=== PATIENT | male | born 1965 | race Caucasian/White ===

== ENCOUNTER 2017-11-17 06:39 | Day surgery (SDC) | payer MEDICARE, SELFPAY ==
--- NOTE | 2017-11-15 08:26 | SUR.PREOP ---
Addendum entered by Nicole Bonner RN 11/16/17 08:32: Spoke with Laura from Dr. Ellis's office, 11-15-17. Elver FELIX reviewed patient's last cardiology note and is in agreement with Dr. Herring telling patient to hold plavix prior to procedure. Once procedure is done, patient is to resume plavix. Original Note: Spoke with Laura in Dr. Ellis's office about obtaining recent office note/cardiac clearance, chart pulled for Elver FELIX. Laura states she will call back. Patient reports Dr. Herring told him to hold his plavix prior to colonoscopy. Spoke with Dr. Herring's office and left message about obtaining a note saying it is ok for him to hold Plavix. Asked for office to fax note to [employer]'s fax machine.
[2017-11-17] VITALS (7 sets, daily range): BP systolic 108–128; BP diastolic 73–87; PULSE 62–78; RESP 18–20; TEMP 36.7–36.8; O2SAT 95–100; BMI 38.0
--- NOTE | 2017-11-17 07:28 | HMH.ANESCL ---
[facility] Anesthesia Checklist - Patient Identification Patient Identification: Arm Band, Verbal (Name & ) - Structural Data Admitted From: Home Planned Operative Procedure/s: colonoscopy Consent for Planned Operative Procedure(s) Verified: Yes Verified Documents: Surgical Consent - NPO Status Verified Time NPO: 00:00 - Chart Verification Results Verified: None - Additional verifications Patient : No Anesthesia Reactions: No Hx Blood Transfusions: No Blood Transfusion Reaction: No Cephalosporin Allergy: No Previous Colonoscopy: No - Cardiovascular Assessment Heart Sounds: S1 & S2 Pulse Strength: Strong Pulse Rhythm: Regular Peripheral Edema: No - Airway Assessment C-Spine Mobility Assessed: Yes TMJ Mobility Assessed: Yes Dentition: Partials - Neurological Assessment Level of Consciousness: Awake, Alert Hx Seizures: No Numbness or tingling in extremities: No - Genitourinary Assessment Urinary Incontinence: None - Anesthesia Plan Anesthesia Risk discussed: Yes Anesthesia Plan: Verified ASA Class: III Anesthesia Type: MAC [facility] Anesthesia HX I have reviewed the patient's past medical history: Yes Medical History: Reports:: Coronary Artery Disease, Diabetes Mellitus Type 2 (on meds), Hyperlipidemia, Hypertension, Myocardial Infarction Denies:: Diabetes Mellitus Type 1, Seizures Other Surgeries: Yes: Angioplasty (5 stents), Colonoscopy. No: Pacemaker Amputation: No Fractures: No *Family Hx:: Unable to obtain
--- NOTE | 2017-11-17 07:41 | HMH.SCOPE ---
- Procedure: Date: 11/17/17 Patient Date of :: 1965 Procedure Performed:: Colonoscopy with cold snare polypectomy Equipment: Olympus 180 variable stiffness pediatric colonoscope Indications:: Mr. Carson is a 52-year-old gentleman who is here for follow-up screening/surveillance colonoscopy. His father had colon cancer in his early 60s. The patient's last colonoscopy 6 years ago at [facility] was normal. He reports no abdominal pain, weight loss, change in his bowel habits or rectal bleeding. Gary Herring M.D. Performing Provider:: Carlos Munoz MD Referring Provider:: Gary Herring MD Sedation:: MAC sedation Procedure:: Prior to the procedure, a history and physical exam was performed, and patient's medications and allergies were reviewed. The risks, benefits and alternatives of the sedation and procedure were discussed with the patient. All questions were answered and informed consent was obtained. The patient was brought to the procedure room. Patient identification and proposed procedure were verified by the physician and the nurse. The patient was placed in a left lateral decubitus position and the scope was passed under direct vision. Throughout the procedure, the patient's blood pressure, pulse, and oxygen saturations were monitored continuously. The colonoscopy was accomplished without difficulty. The patient tolerated the procedure well. Findings:: On digital rectal examination there was normal rectal tone. There were no external hemorrhoids. The colonoscope was introduced through the anal canal to the rectum and advanced to the cecum. Prostate was 2+, mildly firm but symmetric without nodules. The ileocecal valve and appendiceal orifice were identified. The scope was advanced a short distance into the ileum which appeared grossly normal. The scope was then withdrawn into the colon. There were 2 colon polyps identified in the transverse ?1 and sigmoid ?1. These ranged in size from 4-5 mm and were all removed via cold snare polypectomy. There were scattered diverticuli throughout the descending and sigmoid colon (LEFT colon). The rectum itself was normal. Upon retroflexion within the rectum there were grade 1 internal hemorrhoids. Impression: 1. Diminutive colonic polyps ?2 2. Mild left-sided diverticulosis 3. Grade 1 internal hemorrhoids Recommendations:: I will follow up the polyp pathology and recommend repeat colonoscopy again in 5 years based upon the polyp histology and the patient's family history. I would encourage fiber supplementation on a long-term daily maintenance basis. Complications:: None Estimated blood obtained (mL): 0
[2017-11-17 07:42] LABS: POC Glucose,Bedside 128 mg/dL
--- NOTE | 2017-11-17 07:47 | P.PCN_ITS ---
- Procedure: Date: 11/17/17 Patient Date of :: 1965 Procedure Performed:: Colonoscopy with cold snare polypectomy Equipment: Olympus 180 variable stiffness pediatric colonoscope Indications:: Mr. Carson is a 52-year-old gentleman who is here for follow-up screening/ surveillance colonoscopy. His father had colon cancer in his early 60s. The patient's last colonoscopy 6 years ago at [facility] was normal. He reports no abdominal pain, weight loss, change in his bowel habits or rectal bleeding. Gary Herring M.D. Performing Provider:: Carlos Munoz MD Referring Provider:: Gary Herring MD Sedation:: MAC sedation Procedure:: Prior to the procedure, a history and physical exam was performed, and patient' s medications and allergies were reviewed. The risks, benefits and alternatives of the sedation and procedure were discussed with the patient. All questions were answered and informed consent was obtained. The patient was brought to the procedure room. Patient identification and proposed procedure were verified by the physician and the nurse. The patient was placed in a left lateral decubitus position and the scope was passed under direct vision. Throughout the procedure, the patient's blood pressure, pulse, and oxygen saturations were monitored continuously. The colonoscopy was accomplished without difficulty. The patient tolerated the procedure well. Findings:: On digital rectal examination there was normal rectal tone. There were no external hemorrhoids. The colonoscope was introduced through the anal canal to the rectum and advanced to the cecum. Prostate was 2+, mildly firm but symmetric without nodules. The ileocecal valve and appendiceal orifice were identified. The scope was advanced a short distance into the ileum which appeared grossly normal. The scope was then withdrawn into the colon. There were 2 colon polyps identified in the transverse ?1 and sigmoid ?1. These ranged in size from 4-5 mm and were all removed via cold snare polypectomy. There were scattered diverticuli throughout the descending and sigmoid colon ( LEFT colon). The rectum itself was normal. Upon retroflexion within the rectum there were grade 1 internal hemorrhoids. Impression: 1. Diminutive colonic polyps ?2 2. Mild left-sided diverticulosis 3. Grade 1 internal hemorrhoids Recommendations:: I will follow up the polyp pathology and recommend repeat colonoscopy again in 5 years based upon the polyp histology and the patient's family history. I would encourage fiber supplementation on a long-term daily maintenance basis. Complications:: None Estimated blood obtained (mL): 0
== END 2017-11-17 08:50 | disposition home or self-care (01) ==
LOC: OUTP 06:41
PROVIDERS: Family Provider Internal Medicine Adolescent Medicine; PCP Internal Medicine Adolescent Medicine; Visit Provider Internal Medicine Gastroenterology
PROC: 0DJD8ZZ Inspection of Lower Intestinal Tract, Via Natural or Artificial Opening Endoscopic (ICD-10-PCS; CPT 45378; principal; 2017-11-17 07:30)
DX: Z12.11 Encounter for screening for malignant neoplasm of colon (principal); Z80.0 Family history of malignant neoplasm of digestive organs; K57.30 Diverticulosis of large intestine without perforation or abscess without bleeding; D12.3 Benign neoplasm of transverse colon; K63.5 Polyp of colon; Z79.899 Other long term (current) drug therapy
CPT/HCPCS: 45380; 82962; 88305

== ENCOUNTER → 2018-03-06 08:57 | Outpatient (CLI) | payer MEDICARE, SELFPAY ==
[2018-03-06 13:37] LABS: Basophils # 0.1 K/mm3 (0-0.2); Eosinophils # 0.5 K/mm3 (0.0-0.4); Eosinophils % 8.6 % (0.1-12.0); Hemoglobin 12.2 g/dL (14.1-18.0); Lymphocytes # 2.4 K/mm3 (0.7-4.5); Mean Corpuscular Hemoglobin 28.3 pg (27.0-31.2); Mean Corpuscular Volume 85.7 fl (80-94); Mean Platelet Volume 7.4 fl (7.4-10.4); Monocytes # 0.4 K/mm3 (0.1-1.0); Monocytes % 6.6 % (1.7-9.3); Neutrophils # 2.9 K/mm3 (1.8-7.8); Neutrophils % 45.7 % (37.0-80.0); Platelet Count 334 K/mm3 (142-424); Red Blood Count 4.32 M/mm3 (4.60-6.20); Red Cell Distribution Width 12.4 % (11.5-17.5); White Blood Count 6.3 K/mm3 (4.8-10.8)
[2018-03-06 13:55] LABS: Alanine Aminotransferase 34 U/L (12-78); Albumin Level 3.6 gm/dL (3.4-5.0); Alkaline Phosphatase 92 U/L (46-116); Anion Gap 12.4 mEq/L (5-15); Aspartate Amino Transferase 18 U/L (15-37); Bilirubin,Total 0.2 mg/dL (0.2-1.0); Blood Urea Nitrogen 14 mg/dL (7-18); Calcium 9.1 mg/dL (8.5-10.1); Carbon Dioxide 28 mmol/L (21.0-32.0); Chloride 105 mmol/L (98-107); Chol/HDL Ratio 3.7 (1-3.5); Cholesterol 119 mg/dL (140-200); Creatinine,Serum 1.17 mg/dL (0.70-1.30); Estimated Glomerular Filt Rate 65 ml/min (>60); GFR (African American) 79 ML/MIN (>60); Globulin 3.5 gm/dl (1.3-3.2); Glucose 118 mg/dL (74-106); HDL Cholesterol 32 mg/dL (27-67); LDL Cholesterol 57 mg/dL (0-130); Potassium 4.4 mmoL/L (3.5-5.1); Sodium 141 mmol/L (136-145); Total Protein,Serum 7.1 gm/dL (6.4-8.2); Triglycerides 149 mg/dL (30-200); VLDL Cholesterol 30 mg/dL (0-40)
== END ==
PROVIDERS: Visit Provider Internal Medicine Endocrinology, Diabetes & Metabolism
DX: E11.9 Type 2 diabetes mellitus without complications (principal); E78.00 Pure hypercholesterolemia, unspecified; I10 Essential (primary) hypertension
CPT/HCPCS: 36415; 80053; 80061; 85025

== ENCOUNTER → 2019-02-14 08:33 | Outpatient (CLI) | payer MEDICARE, SELFPAY ==
[2019-02-14 13:44] LABS: Basophils # 0.1 K/mm3 (0-0.2); Basophils % 0.8 % (0.1-2.0); Eosinophils # 0.4 K/mm3 (0.0-0.4); Eosinophils % 6.8 % (0.1-12.0); Hematocrit 37.9 % (42.0-52.0); Hemoglobin 12.9 g/dL (14.1-18.0); Lymphocytes % 34.7 % (10-50); Mean Corpuscular HGB Conc 34.1 g/dL (31.8-35.4); Mean Corpuscular Hemoglobin 29.3 pg (27.0-31.2); Mean Corpuscular Volume 85.9 fl (80-94); Mean Platelet Volume 7.4 fl (7.4-10.4); Monocytes # 0.3 K/mm3 (0.1-1.0); Monocytes % 5.6 % (1.7-9.3); Neutrophils % 52.1 % (37.0-80.0); Platelet Count 319 K/mm3 (142-424); Red Blood Count 4.41 M/mm3 (4.60-6.20); White Blood Count 5.8 K/mm3 (4.8-10.8)
[2019-02-14 14:27] LABS: Alanine Aminotransferase 49 U/L (12-78); Albumin Level 3.8 gm/dL (3.4-5.0); Albumin/Globulin Ratio 1.1 (1.1-1.8); Alkaline Phosphatase 89 U/L (46-116); Anion Gap 15.3 mEq/L (5-15); Aspartate Amino Transferase 23 U/L (15-37); Bilirubin,Total 0.5 mg/dL (0.2-1.0); Blood Urea Nitrogen 13 mg/dL (7-18); Calcium 9.3 mg/dL (8.5-10.1); Carbon Dioxide 28 mmol/L (21.0-32.0); Chloride 103 mmol/L (98-107); Chol/HDL Ratio 4.3 (1-3.5); Cholesterol 136 mg/dL (140-200); Creatinine,Serum 1.17 mg/dL (0.70-1.30); Estimated Glomerular Filt Rate 65 ml/min (>60); GFR (African American) 79 ML/MIN (>60); Globulin 3.6 gm/dl (1.3-3.2); Glucose 133 mg/dL (74-106); HDL Cholesterol 32 mg/dL (27-67); LDL Cholesterol 63 mg/dL (0-130); Potassium 4.3 mmoL/L (3.5-5.1); Sodium 142 mmol/L (136-145); Thyroid Stimulating Hormone 0.31 uIU/ml (0.358-3.740); Total Protein,Serum 7.4 gm/dL (6.4-8.2); Triglycerides 203 mg/dL (30-200); VLDL Cholesterol 41 mg/dL (0-40)
[2019-02-15 10:20] LABS: Creatinine, Urine 214.2 mg/dL (Not Estab.)
[2019-02-15 18:32] LABS: Vitamin B12 270 pg/mL (232-1245)
== END ==
PROVIDERS: PCP Internal Medicine Adolescent Medicine; Visit Provider Internal Medicine Endocrinology, Diabetes & Metabolism
DX: E55.9 Vitamin D deficiency, unspecified (principal); E78.00 Pure hypercholesterolemia, unspecified; E11.9 Type 2 diabetes mellitus without complications; I10 Essential (primary) hypertension; E53.8 Deficiency of other specified B group vitamins; Z79.4 Long term (current) use of insulin
CPT/HCPCS: 36415; 80053; 80061; 82043; 82570; 82607; 82652; 84443; 85025

== ENCOUNTER → 2019-08-23 09:34 | Outpatient (CLI) | payer MEDICARE, SELFPAY ==
[2019-08-23 14:39] LABS: Basophils # 0.1 K/mm3 (0-0.2); Basophils % 0.9 % (0.1-2.0); Eosinophils # 0.3 K/mm3 (0.0-0.4); Eosinophils % 5.1 % (0.1-12.0); Hematocrit 41.4 % (42.0-52.0); Hemoglobin 13.2 g/dL (14.1-18.0); Lymphocytes # 2.2 K/mm3 (0.7-4.5); Mean Corpuscular HGB Conc 31.8 g/dL (31.8-35.4); Mean Corpuscular Hemoglobin 28.3 pg (27.0-31.2); Monocytes # 0.4 K/mm3 (0.1-1.0); Monocytes % 6.7 % (1.7-9.3); Neutrophils # 3.3 K/mm3 (1.8-7.8); Neutrophils % 52.3 % (37.0-80.0); Platelet Count 321 K/mm3 (142-424); Red Blood Count 4.66 M/mm3 (4.60-6.20); Red Cell Distribution Width 13.3 % (11.5-17.5); White Blood Count 6.3 K/mm3 (4.8-10.8)
[2019-08-23 15:45] LABS: Alanine Aminotransferase 49 U/L (12-78); Albumin Level 3.7 gm/dL (3.4-5.0); Albumin/Globulin Ratio 1.1 (1.1-1.8); Alkaline Phosphatase 87 U/L (46-116); Anion Gap 13.3 mEq/L (5-15); Aspartate Amino Transferase 22 U/L (15-37); Bilirubin,Total 0.4 mg/dL (0.2-1.0); Blood Urea Nitrogen 16 mg/dL (7-18); Calcium 9.2 mg/dL (8.5-10.1); Carbon Dioxide 30 mmol/L (21.0-32.0); Chloride 101 mmol/L (98-107); Chol/HDL Ratio 3.9 (1-3.5); Cholesterol 135 mg/dL (140-200); Creatinine,Serum 1.21 mg/dL (0.70-1.30); Estimated Glomerular Filt Rate 63 ml/min (>60); Free T4 (Free Thyroxine) 1.03 ng/dl (0.76-1.46); GFR (African American) 76 ML/MIN (>60); Globulin 3.5 gm/dl (1.3-3.2); Glucose 141 mg/dL (74-106); HDL Cholesterol 35 mg/dL (27-67); LDL Cholesterol 60 mg/dL (0-130); Potassium 4.3 mmoL/L (3.5-5.1); Prostate Specific Ag Screen 0.2 ng/mL (0.0-4.0); Sodium 140 mmol/L (136-145); Thyroid Stimulating Hormone 0.15 uIU/ml (0.358-3.740); Total Protein,Serum 7.2 gm/dL (6.4-8.2); Triglycerides 199 mg/dL (30-200); VLDL Cholesterol 40 mg/dL (0-40)
[2019-08-24 20:05] LABS: Vitamin B12 346 pg/mL (232-1245); Vitamin D 25 Hydroxy 33.2 ng/mL (30.0-100.0)
== END ==
PROVIDERS: PCP Internal Medicine Adolescent Medicine; Visit Provider Internal Medicine Endocrinology, Diabetes & Metabolism
DX: E03.8 Other specified hypothyroidism (principal); E78.2 Mixed hyperlipidemia; E53.8 Deficiency of other specified B group vitamins; E55.9 Vitamin D deficiency, unspecified; D64.9 Anemia, unspecified; I10 Essential (primary) hypertension; Z12.5 Encounter for screening for malignant neoplasm of prostate
CPT/HCPCS: 36415; 80053; 80061; 82607; 82652; 84439; 84443; 85025; G0103

== ENCOUNTER → 2020-03-03 08:35 | Outpatient (CLI) | payer MEDICARE, SELFPAY ==
[2020-03-03 14:20] LABS: Alanine Aminotransferase 49 U/L (12-78); Albumin Level 4.2 g/dl (3.5-5.0); Albumin/Globulin Ratio 1.4 (1.1-1.8); Alkaline Phosphatase 96 U/L (38-126); Anion Gap 12.7 mEq/L (5-15); Aspartate Amino Transferase 38 U/L (17-59); Bilirubin,Total 0.3 mg/dl (0.2-1.3); Blood Urea Nitrogen 15 mg/dl (9-20); Calcium 9.9 mg/dl (8.4-10.2); Carbon Dioxide 31 mmol/L (22.0-30.0); Chloride 98 mmol/L (98-107); Cholesterol 123 mg/dl (140-200); Estimated Glomerular Filt Rate 70 ml/min (>60); GFR (African American) 84 ML/MIN (>60); Globulin 2.9 g/dL (1.3-3.2); Glucose 140 mg/dl (74-100); HDL Cholesterol 41 mg/dl (40-60); Potassium 4.7 mmoL/L (3.5-5.1); Sodium 137 mmol/L (136-145); Total Protein,Serum 7.1 g/dl (6.3-8.2); Triglycerides 190 mg/dl (30-150); VLDL Cholesterol 38 mg/dL (0-40)
[2020-03-03 14:31] LABS: Direct LDL Cholesterol 69.47 mg/dL (100-129)
[2020-03-03 14:35] LABS: Free T4 (Free Thyroxine) 1.41 ng/dl (0.78-2.19)
[2020-03-03 14:36] LABS: T4 (Thyroxine) 10.1 ug/dl (5.53-11.0)
[2020-03-03 14:50] LABS: Thyroid Stimulating Hormone 0.04 uIU/mL (0.465-4.68)
[2020-03-04 08:30] LABS: Microalbumin, Urine 6.1 ug/mL (Not Estab.)
[2020-03-06 09:17] LABS: Vitamin B12 436 pg/mL (232-1245)
== END ==
PROVIDERS: Visit Provider Internal Medicine Endocrinology, Diabetes & Metabolism
DX: E03.8 Other specified hypothyroidism (principal); E78.5 Hyperlipidemia, unspecified; I10 Essential (primary) hypertension; E11.8 Type 2 diabetes mellitus with unspecified complications; Z79.84 Long term (current) use of oral hypoglycemic drugs; E53.8 Deficiency of other specified B group vitamins
CPT/HCPCS: 36415; 80053; 80061; 82043; 82570; 82607; 84436; 84439; 84443

== ENCOUNTER → 2021-03-16 10:07 | Outpatient (CLI) | payer MEDICARE, SELFPAY ==
--- NOTE | 2021-03-16 10:08 | CA_ITS ---
APPROVED REPORT EXAM: Comprehensive 2D, Doppler, and color-flow Echocardiogram Instructional Paraprofessional: ANETA Weeks, RVS Ht: 5 ft 8 in Wt: 259lbs BSA: 2.28 HR: 62 bpm BP: 138/82 mmHg Indications: SOB, CAD-hx LA,HTNHLD, DM Echo Enhancing Agent Comments: Poor aouctics throughout exam due to body habitus/chest girth 2D Dimensions LVDs 3.31 cm LA Volume 66.60 mL LVOT 1.77 cm (M/F) 1.5-2.5 LA Volume Index 29.20 mL/m2 (M/F) 16-34 M-Mode Dimensions LA Diam 5.00 cm (1.9-4.0) LVDd 4.88 cm (3.5-5.7) Ao Diam 3.79 cm (2.0-3.7) LVDs 3.20 cm (3.5-5.7) EF (Teich) 63.30% EPSs 0.40 cm FS 34.40% EDV (Teich) 111.70 mL TAPSE 1.93 (<1.7) ESV (Teich) 41.00 mL LV Diastology E Decel Time 170.00 (160-240 msec) E/A Ratio 1.13 MED E' 8.90 (< 7 cm/sec) MED A' 10.70 cm/s E'/MED E' Ratio 11.25 (>14) LAT E' 8.90 (<10 cm/sec) LAT A' 11.50 cm/s E/LAT E' Ratio 11.25 (>14) Aortic Valve LVOT Max 134.00 (70-110 cm/s) LVOT VTI 28.29 cm AoV Peak Javier. 150.00 (50-130 cm/s) AO Peak GR. 9.00 mmHg AO Mean GR. 4.20 (<5 mmHg) AO VTI 30.36 (18-25 cm) ANNABEL (VTI) 2.29 (2.5-4.5 cm2) Mitral Valve MV E Max Javier. 100.00 (40-130 cm/s) MV A Velocity 89.00 (40-130 cm/s) E/A Ratio 1.13 MV Decel. Time 170.00 (160-240 ms) MV PHT 50.00 ms Pulmonary Valve PV Peak Velocity 89.00 (50-150 cm/s) Tricuspid Valve TR P. Velocity 221.00 cm/s RAP Estimate 10.00 mmHg RVSP 29.50 mmHg Left Ventricle Left atrium is mildly enlarged, left ventricle is normal size, mild concentric left ventricular hypertrophy, visually estimated ejection fraction 55% with no regional wall motion abnormality, grade 1 diastolic dysfunction seen without tissue Doppler evidence of raise left atrial pressure. Right Ventricle Right atrium and right ventricle are normal size and contractility. Aortic Valve Aortic valve is minimally thickened and fibrosed, there is no aortic stenosis or aortic insufficiency. Mitral Valve Mitral valve grossly normal, there is mild mitral regurgitation. Tricuspid Valve Tricuspid grossly normal, there is mild tricuspid regurgitation, tricuspid regurgitation jet velocity is inadequate for calculation of the right ventricular systolic pressure. Pulmonic Valve Pulmonic valve is poorly visualized. Great Vessels Aortic root is normal size. Pericardium No significant pericardial effusion noted. Conclusion 1. Mildly enlarged left atrium, normal left ventricular size, mild concentric left ventricular hypertrophy, visually estimated ejection fraction 55% with no regional wall motion abnormality, grade 1 diastolic dysfunction seen without tissue Doppler evidence of raise left atrial pressure. 2. Mild mitral and tricuspid regurgitation. 3. No significant pericardial effusion noted. Electronically signed by : Hemal Walters, 03/16/2021 21:08:08
== END ==
PROVIDERS: PCP Internal Medicine Adolescent Medicine; Visit Provider Nurse Practitioner Family
DX: E11.9 Type 2 diabetes mellitus without complications (principal); E78.2 Mixed hyperlipidemia; G47.33 Obstructive sleep apnea (adult) (pediatric); I10 Essential (primary) hypertension; I25.10 Atherosclerotic heart disease of native coronary artery without angina pectoris; N52.2 Drug-induced erectile dysfunction; Z79.84 Long term (current) use of oral hypoglycemic drugs
CPT/HCPCS: 93306

== ENCOUNTER 2021-07-07 09:43 | Emergency (ER) | payer MEDICARE, SELFPAY ==
[2021-07-07] VITALS (9 sets, daily range): BP systolic 98–128; BP diastolic 54–79; PULSE 74–92; RESP 16–18; TEMP 37.1–37.4; O2SAT 86–92; BMI 39.5
--- NOTE | 2021-07-07 10:10 | XR_ITS ---
PROCEDURE: XR CHEST PORTABLE CLINICAL HISTORY: Hypoxia Covid19 positive COMPARISON: No exams were available for comparison FINDINGS: The cardiomediastinal silhouette and pulmonary vascularity are within normal limits. Scattered peripheral multifocal areas of ground-glass attenuation with atelectatic change in the left lower lobe consistent with Covid19 pneumonia. No effusions. No acute bony abnormalities. IMPRESSION: Findings compatible with Covid19 pneumonia bilateral Dictated by: Dayton Davis MD 07/07/2021 10:45 Dayton Davis MD in [place] 07/07/2021 10:45
--- NOTE | 2021-07-07 10:14 | HMH.EDGENADL ---
ED Disposition Clinical Impression: Acute and chronic respiratory failure with hypoxia, Pneumonia due to COVID-19 virus Disposition: Home, Self-Care Condition on Discharge: Good Prescriptions: dexAMETHasone [Dexamethasone] 4 mg PO BID 10 Days #20 tab [facility]: [facility] Ondansetron [Zofran 4mg ODT] 4 mg PO BIDP PRN #10 tab PRN Reason: Nausea [facility] Referrals: Gary Herring MD [Primary Care Provider] - - Critical Care Critical Care Time: No Attestation: On , the high probability of a clinically significant, sudden or life threatening deterioration of the following system(s) required my full and direct attention, intervention and personal management. The time I documented below is in addition to time spent performing reported procedures but includes the following listed in this critical care notation. Medical Decision Making - Medical Records Medical records reviewed: Yes: I reviewed the patient's medical records. - Brendon Inquiry Pt receiving controlled substance: No Vital Signs: 07/07/21 09:44 07/07/21 10:45 07/07/21 11:15 Temperature 99.3 F Temperature Source Oral Pulse Rate 78 78 Pulse Rate [Right Radial] 92 H Respiratory Rate 16 Blood Pressure 98/54 L 110/60 Blood Pressure [Right Arm] 102/68 L Blood Pressure Mean Blood Pressure Mean [Right Arm] 79 Blood Pressure Source [Right Arm] Automatic Cuff Blood Pressure Position [Right Arm] Sitting 02 Sat by Pulse Oximetry 86 L 90 L 92 L Oxygen Delivery Method Room Air Nasal Cannula Oxygen Flow Rate (LPM) 3 07/07/21 11:30 07/07/21 12:00 07/07/21 12:15 Temperature Temperature Source Pulse Rate 77 79 79 Pulse Rate [Right Radial] Respiratory Rate Blood Pressure 122/67 121/72 Blood Pressure [Right Arm] Blood Pressure Mean 81 Blood Pressure Mean [Right Arm] Blood Pressure Source [Right Arm] Blood Pressure Position [Right Arm] 02 Sat by Pulse Oximetry 91 L 90 L 89 L Oxygen Delivery Method Nasal Cannula Room Air Oxygen Flow Rate (LPM) 3 07/07/21 12:30 07/07/21 12:45 Temperature Temperature Source Pulse Rate 79 74 Pulse Rate [Right Radial] Respiratory Rate Blood Pressure 120/67 Blood Pressure [Right Arm] Blood Pressure Mean Blood Pressure Mean [Right Arm] Blood Pressure Source [Right Arm] Blood Pressure Position [Right Arm] 02 Sat by Pulse Oximetry 87 L 90 L Oxygen Delivery Method Room Air Nasal Cannula Oxygen Flow Rate (LPM) 3 - Lab Data Lab Results 07/07/21 10:35: WBC 7.2, RBC 4.12 L, Hgb 12.2 L, Hct 36.3 L, MCV 88.2, MCH 29.7, MCHC 33.6, RDW 13.3, Plt Count 330, MPV 8.4, Neut % (Auto) 88.1 H, Lymph % (Auto) 9.0 L, [place] % (Auto) 2.5, Eos % (Auto) 0.1, Baso % (Auto) 0.3, Neut # (Auto) 6.3, Lymph # (Auto) 0.6 L, [place] # (Auto) 0.2, Eos # (Auto) 0.0, Baso # (Auto) 0.0, Total Counted 100, Neutrophils % (Manual) 87 H, Lymphocytes % (Manual) 10, Monocytes % (Manual) 3, Platelet Estimate Normal, RBC Morphology Normal 07/07/21 10:35: Sodium 134 L, Potassium 4.5, Chloride 100, Carbon Dioxide 21 L, Anion Gap 17.5 H, BUN 27 H, Creatinine 1.50 H, Estimated Creat Clear 93, Estimated GFR 49 L, Est GFR ( Amer) 59, Glucose 166 H, Calcium 8.5, Total Bilirubin 0.4, AST 39, ALT 27, Alkaline Phosphatase 85, Troponin I < 0.01, Total Protein 7.8, Albumin 3.7, Globulin 4.1 H, Albumin/Globulin Ratio 0.9 L Result diagrams: 07/07/21 10:35 07/07/21 10:35 Orders (Tests/Meds): ED MEDICATIONS Discontinued Medications Generic Name Dose Route Start Last Admin Trade Name Freq PRN Reason Stop Dose Admin Dexamethasone Sodium Phosphate 8 mg 07/07/21 10:10 07/07/21 10:41 Dexamethasone 4mg/Ml 1ml Vial IV 07/07/21 10:11 8 mg ONCE ONE Administration Lactated Ringer's 1,000 mls @ 999 mls/hr 07/07/21 10:15 07/07/21 10:41 Lactated Ringer's 1000 Ml Bag IV 07/07/21 11:15 999 mls/hr .Q
[2021-07-07 10:52] LABS: Basophils % 0.3 % (0.1-2.0); Eosinophils % 0.1 % (0.1-12.0); Hematocrit 36.3 % (42.0-52.0); Hemoglobin 12.2 g/dL (14.1-18.0); Lymphocytes # 0.6 K/mm3 (0.7-4.5); Mean Corpuscular HGB Conc 33.6 g/dL (31.8-35.4); Mean Corpuscular Hemoglobin 29.7 pg (27.0-31.2); Mean Corpuscular Volume 88.2 fl (80-94); Mean Platelet Volume 8.4 fl (7.4-10.4); Monocytes # 0.2 K/mm3 (0.1-1.0); Monocytes % 2.5 % (1.7-9.3); Neutrophils # 6.3 K/mm3 (1.8-7.8); Neutrophils % 88.1 % (37.0-80.0); Platelet Count 330 K/mm3 (142-424); Red Blood Count 4.12 M/mm3 (4.60-6.20); Red Cell Distribution Width 13.3 % (11.5-17.5); White Blood Count 7.2 K/mm3 (4.8-10.8)
[2021-07-07 11:05] LABS: Alanine Aminotransferase 27 U/L (12-78); Albumin Level 3.7 g/dl (3.5-5.0); Albumin/Globulin Ratio 0.9 (1.1-1.8); Alkaline Phosphatase 85 U/L (38-126); Anion Gap 17.5 mEq/L (5-15); Aspartate Amino Transferase 39 U/L (17-59); Bilirubin,Total 0.4 mg/dl (0.2-1.3); Blood Urea Nitrogen 27 mg/dl (9-20); Calcium 8.5 mg/dl (8.4-10.2); Carbon Dioxide 21 mmol/L (22.0-30.0); Chloride 100 mmol/L (98-107); Creatinine Clearance Estimated 93 mL/min (50-200); Estimated Glomerular Filt Rate 49 ml/min (>60); GFR (African American) 59 ML/MIN (>60); Globulin 4.1 g/dL (1.3-3.2); Glucose 166 mg/dl (74-100); Potassium 4.5 mmoL/L (3.5-5.1); Sodium 134 mmol/L (136-145); Total Protein,Serum 7.8 g/dl (6.3-8.2)
[2021-07-07 11:10] LABS: MANUAL DIFFERENTIAL MANUAL DIFFERENTIAL (MANUAL DIFF)
[2021-07-07 11:19] LABS: Troponin I < 0.01 ng/ml (0.00-0.034)
[2021-07-07 11:34] LABS: Lymphocytes % 10 % (10-50); Monocytes % 3 % (2-9); Neutrophils % 87 % (42-76); Platelet Estimate Normal; RBC Morphology Normal; Total Cells Counted 100
--- NOTE | 2021-07-07 12:57 | PC.NURSE ---
Spoke with Dr Herring about sending pt home with Oxygen and he was agreeable to that. Maricruz Dominguez with case management aware and is setting it up at this time.
--- NOTE | 2021-07-07 13:10 | SW/DCPLANNER ---
SET UP HOME 02 FOR THIS PATIENT THAT PRESENTED INTO THE HOSPITAL ED WITH A DIAGNOSIS OF COVID.... A PORTABLE TANK WILL BE BROUGHT TO THE HOSPITAL..PATIENT WILL DISCHARGE TO HOME..
== END 2021-07-07 14:23 | disposition home or self-care (01) ==
PROVIDERS: Emergency Provider Student in an Organized Health Care Education/Training Program; PCP Internal Medicine Adolescent Medicine
DX: J96.21 Acute and chronic respiratory failure with hypoxia (principal); J12.82 Pneumonia due to coronavirus disease 2019; U07.1 COVID-19; I25.10 Atherosclerotic heart disease of native coronary artery without angina pectoris; I25.2 Old myocardial infarction; I10 Essential (primary) hypertension; E78.5 Hyperlipidemia, unspecified
CPT/HCPCS: 36415; 71045; 80053; 84484; 85007; 85025; 96365; 96375; 99282; J2405

== ENCOUNTER 2021-07-09 15:24 | Inpatient (IN) | payer MEDICARE, SELFPAY ==
[2021-07-09] VITALS (10 sets, daily range): BP systolic 96–122; BP diastolic 63–73; PULSE 68–80; RESP 22–28; TEMP 36.3–36.5; O2SAT 78–94; BMI 39.5; BMI 40.3; BMI 39.1
--- NOTE | 2021-07-09 15:25 | PC.NURSE ---
Respiratory aware need of highflow oxygen at this time
--- NOTE | 2021-07-09 15:29 | CT_ITS ---
PROCEDURE: CT ANGIO CHEST PE PROTOCOL CLINCIAL INDICATION: Shortness of Breathe COMPARISON: No exams were available for comparison TECHNIQUE: IV Contrast: 70ML Isovue 370 Axial images obtained with sagittal and coronal reformats. All CT scans at the facility use one or more dose reduction, viz: automated exposure control, ma/kV adjustment per patient size (including targeted exams where dose is matched to indication, i.e. head), or iterative reconstruction technique. FINDINGS: HEART AND MEDIASTINAL STRUCTURES: There is mild cardiomegaly with left ventricular prominence and there is mild aortic tortuosity. There is no pulmonary congestion. There is excellent vascular opacification and no definite pulmonary emboli are identified. LUNGS AND PLEURAL SPACES: Prominent and diffuse areas of ground-glass opacity are seen bilaterally with scattered areas of essentially normal appearing lung parenchyma shunting through the areas of ground-glass opacities. Somewhat more coarse markings are seen in the posterior basilar segments bilaterally. There is no definite pleural fluid seen on either side. BONY STRUCTURES: There are mild multilevel degenerate changes midthoracic spine. UPPER ABDOMEN: Unremarkable. ADDITIONAL FINDINGS: No other significant abnormalities. IMPRESSION: 1. No CT evidence of pulmonary emboli. 1. Prominent and diffuse areas of ground-glass opacity most consistent with Covid19 pneumonia the certainly other types of pneumonia are a possibility. Dictated by: Dr. Cristofer Love MD 07/09/2021 16:02 Dr. Cristofer Love MD in [place] 07/09/2021 16:02
--- NOTE | 2021-07-09 15:35 | PC.NURSE ---
PT TO CT SCANNER VIA STRETCHER AT THIS TIME.
--- NOTE | 2021-07-09 15:38 | HMH.EDGENADL ---
ED Disposition Clinical Impression: Pneumonia due to COVID-19 virus, Acute respiratory failure with hypoxia Disposition: Admitted As Inpatient Condition on Discharge: Good - Critical Care Critical Care Time: Yes (40) Attestation: On , the high probability of a clinically significant, sudden or life threatening deterioration of the following system(s) required my full and direct attention, intervention and personal management. The time I documented below is in addition to time spent performing reported procedures but includes the following listed in this critical care notation. Vital system(s) involved:: Respiratory Failure My critical care processes included: Assessment & monitoring of V/S, Initial and Re-exams, Data Review/Interpretation, Coordinating Care, Medication Orders and management, Documentation Medical Decision Making - Medical Records Medical records reviewed: Yes: I reviewed the patient's medical records. - Brendon Inquiry Pt receiving controlled substance: No Vital Signs: 07/09/21 15:25 07/09/21 15:55 07/09/21 16:00 Temperature 97.7 F Temperature Source Oral Pulse Rate 70 68 Pulse Rate [Right] 80 Respiratory Rate 26 H 23 Blood Pressure Blood Pressure [Right Arm] 96/63 L Blood Pressure Mean Blood Pressure Mean [Right Arm] 74 02 Sat by Pulse Oximetry 78 L 89 L 94 L Oxygen Delivery Method Non-Rebreather Vapotherm Oxygen Flow Rate (LPM) 15 07/09/21 16:37 Temperature Temperature Source Pulse Rate 80 Pulse Rate [Right] Respiratory Rate 28 H Blood Pressure 118/69 Blood Pressure [Right Arm] Blood Pressure Mean 79 Blood Pressure Mean [Right Arm] 02 Sat by Pulse Oximetry 90 L Oxygen Delivery Method Oxygen Flow Rate (LPM) - Lab Data Lab Results 07/09/21 15:25: WBC 12.3 H D, RBC 4.31 L, Hgb 12.7 L, Hct 38.4 L, MCV 89.1, MCH 29.6, MCHC 33.2, RDW 13.1, Plt Count 587 H D, MPV 8.0, Neut % (Auto) 87.9 H, Lymph % (Auto) 7.4 L, Wayne % (Auto) 4.3, Eos % (Auto) 0.1, Baso % (Auto) 0.3, Neut # (Auto) 10.8 H, Lymph # (Auto) 0.9, Wayne # (Auto) 0.5, Eos # (Auto) 0.0, Baso # (Auto) 0.0, Total Counted 100, Neutrophils % (Manual) 86 H, Lymphocytes % (Manual) 8 L, Monocytes % (Manual) 3, Eosinophils % (Manual) 1, Basophils % (Manual) 2.0 H, Platelet Estimate Moderate increase 07/09/21 15:25: Sodium 135 L, Potassium 4.7, Chloride 101, Carbon Dioxide 20 L, Anion Gap 18.7 H, BUN 46 H D, Creatinine 1.60 H, Estimated Creat Clear 89, Estimated GFR 45 L, Est GFR ( Amer) 55 L, Glucose 169 H, Calcium 9.1, Total Bilirubin 0.3, AST 45, ALT 34 D, Alkaline Phosphatase 91, Troponin I < 0.01, Total Protein 7.8, Albumin 3.6, Globulin 4.2 H, Albumin/Globulin Ratio 0.9 L 07/09/21 15:25: Lactate 3.3 H 07/09/21 15:27: Specimen Source Right radial, O2 % 100, ABG pH 7.40, ABG pCO2 30.8 L, ABG pO2 69.9 L, ABG HCO3 18.7 L, ABG Total CO2 19.6 L, ABG O2 Saturation 93, ABG Base Excess -6.1 L, [place] Test Acceptable 07/09/21 16:35: SARS-CoV-2 (PCR) Detected A, Influenza A Untype (PCR) Not detected, Influenza Type B (PCR) Not detected Result diagrams: 07/09/21 15:25 07/09/21 15:25 Orders (Tests/Meds): ED MEDICATIONS Generic Name Dose Route Start Last Admin Trade Name Fely PRN Reason Stop Dose Admin Acetaminophen 650 mg 07/09/21 16:21 Acetaminophen 325mg Tab PO 08/08/21 16:20 Q6HP PRN Mild pain,fever,headache Ascorbic Acid 500 mg 07/09/21 17:00 Ascorbic Acid 500mg Tab PO 08/08/21 16:59 QID MARI Dexamethasone Sodium Phosphate 10 mg 07/09/21 21:00 07/09/21 16:44 Dexamethasone 4mg/Ml 1ml Vial IV 08/08/21 20:59 10 mg BID MARI Administration Enoxaparin Sodium 60 mg 07/09/21 16:30 Enoxaparin 60mg/0.6ml Syringe SQ 08/08/21 16:29 DAILY MARI Ergocalciferol 50,000 unit 07/09/21 16:30 Ergocalciferol 50,000 Units (1.25mg) Capsule PO 08/08/21 16:29 WEEKLY MARI Famotidine 20 mg 07/09/21 21:00 Famotidine 20mg Tablet PO 08/08/21 20:59 BID MARI S
[2021-07-09 15:39] LABS: Basophils % 0.3 % (0.1-2.0); Eosinophils % 0.1 % (0.1-12.0); Hematocrit 38.4 % (42.0-52.0); Hemoglobin 12.7 g/dL (14.1-18.0); Lymphocytes # 0.9 K/mm3 (0.7-4.5); Lymphocytes % 7.4 % (10-50); Mean Corpuscular HGB Conc 33.2 g/dL (31.8-35.4); Mean Corpuscular Hemoglobin 29.6 pg (27.0-31.2); Mean Corpuscular Volume 89.1 fl (80-94); Monocytes # 0.5 K/mm3 (0.1-1.0); Monocytes % 4.3 % (1.7-9.3); Neutrophils # 10.8 K/mm3 (1.8-7.8); Neutrophils % 87.9 % (37.0-80.0); Platelet Count 587 K/mm3 (142-424); Red Blood Count 4.31 M/mm3 (4.60-6.20); Red Cell Distribution Width 13.1 % (11.5-17.5); White Blood Count 12.3 K/mm3 (4.8-10.8)
[2021-07-09 15:43] LABS: MANUAL DIFFERENTIAL MANUAL DIFFERENTIAL (MANUAL DIFF)
[2021-07-09 15:47] LABS: Chloride 101 mmol/L (98-107); Potassium 4.7 mmoL/L (3.5-5.1); Sodium 135 mmol/L (136-145)
[2021-07-09 15:49] LABS: Alanine Aminotransferase 34 U/L (12-78); Aspartate Amino Transferase 45 U/L (17-59); Blood Urea Nitrogen 46 mg/dl (9-20); Creatinine Clearance Estimated 89 mL/min (50-200); Estimated Glomerular Filt Rate 45 ml/min (>60); GFR (African American) 55 ML/MIN (>60)
[2021-07-09 15:50] LABS: Albumin Level 3.6 g/dl (3.5-5.0); Albumin/Globulin Ratio 0.9 (1.1-1.8); Alkaline Phosphatase 91 U/L (38-126); Anion Gap 18.7 mEq/L (5-15); Bilirubin,Total 0.3 mg/dl (0.2-1.3); Calcium 9.1 mg/dl (8.4-10.2); Carbon Dioxide 20 mmol/L (22.0-30.0); Globulin 4.2 g/dL (1.3-3.2); Glucose 169 mg/dl (74-100); Total Protein,Serum 7.8 g/dl (6.3-8.2)
--- NOTE | 2021-07-09 15:56 | PC.NURSE ---
VAPOTHERM SET UP BY RT AT BEDSIDE, O2 SATS IMPROVED TO 94%.
[2021-07-09 16:04] LABS: Troponin I < 0.01 ng/ml (0.00-0.034)
[2021-07-09 16:05] LABS: Lactic Acid 3.3 mmol/L (0.7-2.1)
--- NOTE | 2021-07-09 16:14 | ECG_ITS ---
APPROVED REPORT Exam: Resting ECG HR:65 bpm ECG Measurements Heart Rate 65 AXES NJ 196 P 35 QRSd 82 QRS -2 QT 380 T -4 QTc 395 Conclusion Normal sinus rhythm Moderate voltage criteria for LVH, may be normal variant Inferior infarct, age undetermined Abnormal ECG Electronically signed by : Gary Herring MD 07/12/2021 20:58:39
--- NOTE | 2021-07-09 16:14 | PC.NURSE ---
Dr. Foster paged for patient
[2021-07-09 16:17] LABS: Eosinophils % 1 % (0-3); Lymphocytes % 8 % (10-50); Monocytes % 3 % (2-9); Neutrophils % 86 % (42-76); Platelet Estimate Moderate Increase; Total Cells Counted 100
[2021-07-09 16:33] LABS: ABG Base Excess -6.1 mmol/L (-2.4-2.3); ABG HCO3 18.7 mmhg (22.0-26.0); ABG Oxygen Saturation 93 % (90-100); ABG PCO2 30.8 mmhg (35.0-45.0); ABG PO2 69.9 mmhg (80-100); ABG TCO2 19.6 mmhg (23-27)
[2021-07-09 16:35] LABS: Allen's Test Acceptable; Oxygen 100 %; Source Right Radial
--- NOTE | 2021-07-09 16:37 | PC.NURSE ---
PT DOES NOT KNOW HIS HOME MEDICATIONS, WILL CONTACT [facility] FOR MED LIST.
[2021-07-09 16:48] LABS: Influenza A, PCR Not Detected (NotDetected); Influenza B, PCR Not Detected (NotDetected)
[2021-07-09 17:13] LABS: Coronavirus 19, PCR Detected (NotDetected)
--- NOTE | 2021-07-09 18:24 | PC.NURSE ---
REPORT GIVEN TO
[2021-07-09 19:35] LABS: Reflex Lactic Add Lactic Reflex
[2021-07-09 20:10] LABS: Lactic Acid Follow Up (RFLX 1) 2.6 mmol/L (0.7-2.1)
[2021-07-09 20:39] LABS: POC Glucose,Bedside 184 (70-110)
[2021-07-09 21:54] LABS: Reflex Lactic (2 hrs) Add Lactic Reflex
[2021-07-09 22:12] LABS: Troponin I < 0.01 ng/ml (0.00-0.034)
[2021-07-09 22:33] LABS: Lactic Acid Follow up (RFLX 2) 1.8 mmol/L (0.7-2.1)
[2021-07-10] VITALS (10 sets, daily range): BP systolic 102–127; BP diastolic 52–76; PULSE 58–71; RESP 16–19; TEMP 36.4–36.9; O2SAT 91–100; BMI 37.1
--- NOTE | 2021-07-10 03:09 | PC.NURSE ---
Addendum entered by Dot Hall RN 07/10/21 03:15: VSS, call light within reach, will continue to monitor. Original Note: Patient is alert and oriented x4. Patient started the shift on vapotherm 40L/100% FIO2; before being moved to the unit patient was placed on a non-rebreather mask as well and has continued to wear this the rest of this RN's shift. Patient lung sounds are diminished bilaterally throughout. Patient rested well laying on his left side with O2 saturation above 95%; when patient is in the supine position patient O2 saturation stays around 94-95%. This RN was unable to get the Med Rec done at this time due to patient resting and maintaining oxygen levels. Patient is NSR on Tele.
[2021-07-10 06:57] LABS: Basophils # 0.1 K/mm3 (0-0.2); Basophils % 1.1 % (0.1-2.0); Eosinophils % 0.1 % (0.1-12.0); Hematocrit 36.9 % (42.0-52.0); Hemoglobin 12.4 g/dL (14.1-18.0); Lymphocytes # 0.6 K/mm3 (0.7-4.5); Lymphocytes % 6.2 % (10-50); Mean Corpuscular HGB Conc 33.6 g/dL (31.8-35.4); Mean Corpuscular Hemoglobin 30.1 pg (27.0-31.2); Mean Corpuscular Volume 89.5 fl (80-94); Mean Platelet Volume 8.3 fl (7.4-10.4); Monocytes # 0.5 K/mm3 (0.1-1.0); Monocytes % 5.1 % (1.7-9.3); Neutrophils % 87.5 % (37.0-80.0); Platelet Count 502 K/mm3 (142-424); Red Blood Count 4.13 M/mm3 (4.60-6.20); Red Cell Distribution Width 13.1 % (11.5-17.5); White Blood Count 9.1 K/mm3 (4.8-10.8)
[2021-07-10 07:00] LABS: MANUAL DIFFERENTIAL MANUAL DIFFERENTIAL (MANUAL DIFF)
[2021-07-10 07:07] LABS: Alanine Aminotransferase 28 U/L (12-78); Albumin Level 3.5 g/dl (3.5-5.0); Albumin/Globulin Ratio 0.9 (1.1-1.8); Alkaline Phosphatase 66 U/L (38-126); Anion Gap 17.1 mEq/L (5-15); Aspartate Amino Transferase 35 U/L (17-59); Bilirubin,Total 0.4 mg/dl (0.2-1.3); Blood Urea Nitrogen 50 mg/dl (9-20); Calcium 8.7 mg/dl (8.4-10.2); Carbon Dioxide 24 mmol/L (22.0-30.0); Chloride 100 mmol/L (98-107); Creatinine Clearance Estimated 94 mL/min (50-200); Estimated Glomerular Filt Rate 53 ml/min (>60); GFR (African American) 64 ML/MIN (>60); Globulin 3.8 g/dL (1.3-3.2); Glucose 210 mg/dl (74-100); Potassium 5.1 mmoL/L (3.5-5.1); Sodium 136 mmol/L (136-145); Total Protein,Serum 7.3 g/dl (6.3-8.2)
--- NOTE | 2021-07-10 07:34 | HMH.HP ---
*Admission Date: 07/09/21 *Chief complaint: Covid pneumonia *History of present illness: Mr. Carson is a 56-year-old male who presented to the ER yesterday due to worsening shortness of breath at home. Was diagnosed last week with COVID-19 infection and has been requiring a few liters of oxygen continuously at home. Received his first dose of Covid vaccine same day he was diagnosed. On presentation yesterday, has had worsening dyspnea and inability to get oxygen saturations up at home. Denies significant cough. Denies GI symptoms, nausea, vomiting, diarrhea. No chest pain. Has been very anxious given his shortness of breath. On assessment found to have worsening bilateral patchy airspace disease and hypoxemic failure. Initiated on Vapotherm 100% and admitted to the hospital for further management. Started on antibiotics and Covid protocol. On assessment this morning reports feeling anxious and still short of breath but improved from admission. Afebrile. Hemodynamically stable. Labs this morning with MARGO and mild hyperglycemia. Patient able to remove mask temporarily for p.o. intake. Discussed goals of care briefly, patient reports desire to be full code. If unable to make medical decisions, his significant other, Shanice, is who he would want to be his surrogate decision maker. He has no children. She would be his next of kin. [facility] History I have reviewed the patient's past medical history: Yes Medical History: Reports:: Coronary Artery Disease, Diabetes Mellitus Type 2, Hyperlipidemia, Hypertension, Myocardial Infarction Denies:: Cancer, Diabetes Mellitus Type 1, Internal Pacemaker, Lung Disease, MRSA, Seizures *Have you ever received a pneumonia vaccine?: No *Have you received a flu vaccine this season?: Yes Other Medical History: Denies: Blood Transfusion Reaction Other Surgeries: Yes: Angioplasty (5 stents), Cardiac Catheterization, Colonoscopy, Coronary Stent. No: Pacemaker Amputation: No Fractures: No - *Social History Smoking Status: Never smoker Alcohol Intake: never Substance Use Type: denies use *Occupational Status:: employed Household Members: significant other *Travel in the last 8 weeks: None Family Hx:: Unable to obtain Review of Systems - Review of Systems Review of systems:: pertinent systems reviewed and negative unless documented below (14 point review of systems performed, pertinent positives and negatives as per HPI) Meds Home Medications Medication Instructions Recorded Confirmed Type Aspirin [Aspirin 81mg EC Tab] 81 mg PO DAILY 11/10/17 07/10/21 History Metformin HCl [Glucophage 500mg 1,000 mg PO BIDWMEAL 11/10/17 07/10/21 History Tablet] glimepiride 1 mg tablet 1 mg PO BIDWMEAL tab 10/02/18 07/10/21 History allopurinol 300 mg tablet 300 mg PO DAILY 03/09/20 07/10/21 History Ondansetron [Zofran 4mg ODT] 4 mg PO BIDP PRN #10 tab 07/07/21 07/09/21 Rx Atorvastatin Calcium [Lipitor 40mg 40 mg PO DAILY 07/09/21 07/10/21 History Tab] Lisinopril/Hydrochlorothiazide 1 tab PO DAILY 07/09/21 07/10/21 History [Lisinopril-Hctz 20-25 mg Tab*] dexAMETHasone [Dexamethasone] 4 mg PO BID 07/09/21 07/10/21 History Clopidogrel Bisulfate [Plavix] 75 mg PO DAILY 07/10/21 07/10/21 History Levothyroxine Sodium 137 mcg PO DAILY 07/10/21 07/10/21 History [Levothyroxine 137mcg (0.137mg) Tab] Sertraline HCl [Zoloft] 100 mg PO DAILY 07/10/21 07/10/21 History dilTIAZem HCl [Diltiazem 240mg 240 mg PO DAILY 07/10/21 07/10/21 History 24Hr ER Cap] Allergies Allergy/AdvReac Type Severity Reaction Status Date / Time No Known Allergies Allergy Verified 07/09/21 15:43 Exam Vital signs and Labs for Last 24 Hours: Temp Pulse Resp BP Pulse Ox 97.7 F 60 19 102/52 L 96 07/10/21 03:57 07/10/21 04:00 07/10/21 03:57 07/10/21 03:57 07/10/21 06:47 Laboratory Results - last 24 hr 07/09/21 15:25: WBC 12.3 H D, RBC 4.31 L, Hgb 12.7 L, Hct 38.4 L, MCV 89.1, MCH 29.
[2021-07-10 07:37] LABS: Lymphocytes % 7 % (10-50); Monocytes % 2 % (2-9); Neutrophils % 91 % (42-76); Platelet Estimate Moderate Increase; RBC Morphology Normal; Total Cells Counted 100
--- NOTE | 2021-07-10 10:45 | HMH.PHAVTE ---
[facility] Pharmacy VTE Monitoring - Patient Demographics Admission date: 07/09/21 Report Date: 07/10/21 Time: 10:45 Allergies/Adverse Reactions: Patient Allergies No Known Allergies Allergy (Verified 07/09/21 15:43) Height: 1.73 m Weight: 111.266 kg Patient Problems: Current Active Problems Pneumonia due to COVID-19 virus (Acute) Acute respiratory failure with hypoxia (Acute) Diabetes (Chronic) JAYLIN (obstructive sleep apnea) (Chronic) HLD (hyperlipidemia) (Chronic) HTN (hypertension) (Chronic) CAD (coronary artery disease) (Chronic) - VTE Risk Labs: VTE Related Lab Results Hgb 12.4 g/dL (14.1-18.0) L 07/10/21 06:40 Hct 36.9 % (42.0-52.0) L 07/10/21 06:40 Plt Count 502 K/mm3 (142-424) H 07/10/21 06:40 BUN 50 mg/dl (9-20) H 07/10/21 06:40 Creatinine 1.40 mg/dl (0.66-1.25) H 07/10/21 06:40 Estimated Creat Clear 94 mL/min (50-200) 07/10/21 06:40 Was VTE Risk Assessment Performed: Yes VTE Score: 3 VTE Risk Level: Low Risk - Prophylaxis VTE Prophylaxis Ordered?: Yes Types of VTE Prophylaxis: TEDS Knee High, Pharmacological Location of Applied Device: Bilateral Lower Extremeties Pharmacologic Type: Enoxaparin
--- NOTE | 2021-07-10 10:50 | HMH.PHAINT ---
MEDICATION RECONCILIATION COMPLETED ON PATIENT USING EXTERNAL FILL HISTORY FROM PHARMACY AND CARDIOLOGY OFFICE VISIT NOTE. -MASHA GARCIAD
--- NOTE | 2021-07-10 16:20 | PC.NURSE ---
No acute changes noted this shift, patient has been pleasant and cooperative, remains on vapotherm at 40L/100% with 100% NRB as well, does not appear to be in any distress, O2 saturations 88-97% this shift, saturations drop with exertion, lung sounds diminished t/o, HR reg, NSR per telemetry, abd soft and nontender, active bowel sounds in all quads, peripheral pulses 2+, no edema noted, voids per urinal, urine yellow and clear, no s/s of distress noted, vss, will continue to monitor.
[2021-07-10 18:10] LABS: POC Glucose,Bedside 271 (70-110)
[2021-07-10 20:18] LABS: POC Glucose,Bedside 261 (70-110)
[2021-07-11] VITALS (12 sets, daily range): BP systolic 102–152; BP diastolic 50–94; PULSE 50–80; RESP 16–22; TEMP 36.4–36.8; O2SAT 85–100; BMI 37.3
--- NOTE | 2021-07-11 01:24 | PC.NURSE ---
Pt remains on 40L 100% Vapotherm and NRB. O2 sat is currently 91% at this time. Lungs are diminished t/o. Pt is resting on (R) side. He is comfortable and declined any additional medication for anxiety. No other concerns at this time. Will continue to monitor.
--- NOTE | 2021-07-11 01:30 | PC.NURSE ---
Pt has had 3 large loose stools which appeared to have blood. Occult stool was obtained resulting positive. Blood Cx results positive. notified of blood CX and blood in stool. Pt remains on 6L O2 NC. Lungs are diminished t/o. Pt is currently resting on (R) side per request. VSS. F/C draining to bedside. Will continue to monitor.
[2021-07-11 05:54] LABS: Basophils % 0.2 % (0.1-2.0); Hematocrit 35.3 % (42.0-52.0); Hemoglobin 11.6 g/dL (14.1-18.0); Lymphocytes # 0.6 K/mm3 (0.7-4.5); Lymphocytes % 4.7 % (10-50); Mean Corpuscular HGB Conc 32.9 g/dL (31.8-35.4); Mean Corpuscular Hemoglobin 29.4 pg (27.0-31.2); Mean Corpuscular Volume 89.2 fl (80-94); Mean Platelet Volume 8.4 fl (7.4-10.4); Monocytes # 0.6 K/mm3 (0.1-1.0); Monocytes % 4.8 % (1.7-9.3); Neutrophils # 10.5 K/mm3 (1.8-7.8); Neutrophils % 90.3 % (37.0-80.0); Platelet Count 561 K/mm3 (142-424); Red Blood Count 3.96 M/mm3 (4.60-6.20); Red Cell Distribution Width 13.1 % (11.5-17.5); White Blood Count 11.7 K/mm3 (4.8-10.8)
[2021-07-11 05:57] LABS: POC Glucose,Bedside 184 (70-110)
[2021-07-11 05:58] LABS: MANUAL DIFFERENTIAL MANUAL DIFFERENTIAL (MANUAL DIFF)
[2021-07-11 06:05] LABS: Alanine Aminotransferase 27 U/L (12-78); Albumin Level 3.1 g/dl (3.5-5.0); Albumin/Globulin Ratio 0.9 (1.1-1.8); Alkaline Phosphatase 68 U/L (38-126); Anion Gap 14.8 mEq/L (5-15); Aspartate Amino Transferase 35 U/L (17-59); Bilirubin,Total 0.4 mg/dl (0.2-1.3); Blood Urea Nitrogen 52 mg/dl (9-20); Calcium 8.6 mg/dl (8.4-10.2); Carbon Dioxide 21 mmol/L (22.0-30.0); Chloride 104 mmol/L (98-107); Creatinine Clearance Estimated 120 mL/min (50-200); Estimated Glomerular Filt Rate 69 ml/min (>60); GFR (African American) 84 ML/MIN (>60); Globulin 3.6 g/dL (1.3-3.2); Glucose 188 mg/dl (74-100); Magnesium 2.6 mg/dl (1.6-2.3); Potassium 4.8 mmoL/L (3.5-5.1); Sodium 135 mmol/L (136-145); Total Protein,Serum 6.7 g/dl (6.3-8.2)
[2021-07-11 06:25] LABS: Lymphocytes % 5 % (10-50); Neutrophils % 92 % (42-76); Platelet Estimate Normal; RBC Morphology Normal; Total Cells Counted 100
--- NOTE | 2021-07-11 08:39 | HMH.ACPN2 ---
Internal Medicine - PN: Subj *Date: 07/11/21 *Time: 10:55 Interval history: Continues to have tenuous respiratory status overnight. Taking longer to recover his oxygen saturations after movement or exertion. Lying on his right side today on exam with oxygenation in the mid 90s. Denies nausea, vomiting, diarrhea. No cough. Anxious on exam. Concerned about worsening respiratory failure. Discussed next steps including ventilator if oxygenation becomes more difficult. Patient is okay with ventilator. Exam Vital signs and Labs for Last 24 Hours: Temp Pulse Resp BP Pulse Ox 97.6 F 60 20 134/73 91 L 07/11/21 08:00 07/11/21 08:00 07/11/21 08:00 07/11/21 08:00 07/11/21 08:00 Laboratory Results - last 24 hr 07/10/21 15:59: POC Glucose 271 H 07/10/21 20:04: POC Glucose 261 H 07/11/21 05:37: POC Glucose 184 H 07/11/21 05:38: WBC 11.7 H D, RBC 3.96 L, Hgb 11.6 L, Hct 35.3 L, MCV 89.2, MCH 29.4, MCHC 32.9, RDW 13.1, Plt Count 561 H, MPV 8.4, Neut % (Auto) 90.3 H, Lymph % (Auto) 4.7 L, [place] % (Auto) 4.8, Eos % (Auto) 0.0 L, Baso % (Auto) 0.2, Neut # (Auto) 10.5 H, Lymph # (Auto) 0.6 L, [place] # (Auto) 0.6, Eos # (Auto) 0.0, Baso # (Auto) 0.0, Total Counted 100, Neutrophils % (Manual) 92 H, Band Neutrophils % 3.0, Lymphocytes % (Manual) 5 L, Platelet Estimate Normal, RBC Morphology Normal 07/11/21 05:38: Sodium 135 L, Potassium 4.8, Chloride 104, Carbon Dioxide 21 L, Anion Gap 14.8, BUN 52 H, Creatinine 1.10 D, Estimated Creat Clear 120, Estimated GFR 69, Est GFR ( Amer) 84 D, Glucose 188 H, Calcium 8.6, Magnesium 2.6 H, Total Bilirubin 0.4, AST 35, ALT 27, Alkaline Phosphatase 68, Total Protein 6.7, Albumin 3.1 L D, Globulin 3.6 H, Albumin/Globulin Ratio 0.9 L I & O for Last 24 hours: Intake & Output 07/08/21 07/09/21 07/10/21 07/11/21 23:59 23:59 23:59 23:59 Intake Total 1413 / 1533 120 / 120 Output Total 1800 / 1800 325 / 325 Balance -387 / -267 -205 / -205 Weight 117.14 kg 111.266 kg 111.811 kg Microbiology Reports for the Last 24 Hours: Microbiology 07/09/21 15:25 Blood Blood Culture - Preliminary Narrative: - Constitutional Moderate distress, obese, cooperative - *Routine HEENT Exam Head: Present: normocephalic Eye: Present: EOMI, PERRL ENT: Present: mucous membranes moist - *Routine Neck Exam Present: supple. Absent: lymphadenopathy - *Routine Respiratory Exam Present: Discordantly clear on exam with fair airmovement. No crackles, rhonchi, wheezes - *Routine Cardiovascular Exam Present: RRR - *Routine Abdominal Exam Present: soft, normoactive bowel sounds. Absent: tenderness - *Routine Extremities Exam Absent: cyanosis, clubbing, edema - *Routine Skin Exam Present: warm. Absent: rash - *Routine Neurological Exam Present: alert, oriented X3, anxious Assessment and Plan (1) Acute respiratory failure with hypoxia Status: Acute Category: Medical Code(s): J96.01 - Acute respiratory failure with hypoxia (2) Pneumonia due to COVID-19 virus Status: Acute Category: Medical Code(s): U07.1 - COVID-19; J12.82 - Pneumonia due to coronavirus disease 2019 (3) CAD (coronary artery disease) Status: Chronic Qualifiers: Category: Medical Code(s): I25.10 - Atherosclerotic heart disease of [place] coronary artery without angina pectoris (4) Diabetes Status: Chronic Qualifiers: Category: Medical Code(s): E11.9 - Type 2 diabetes mellitus without complications (5) HLD (hyperlipidemia) Status: Chronic Qualifiers: Category: Medical Code(s): E78.5 - Hyperlipidemia, unspecified (6) HTN (hypertension) Status: Chronic Category: Medical Code(s): I10 - Essential (primary) hypertension (7) JAYLIN (obstructive sleep apnea) Status: Chronic Category: Medical Code(s): G47.33 - Obstructive sleep apnea (adult) (pediatric) (8) Hypothyroid Status: Chronic Qualifiers: Hypothyroidism type: acquired Qualified C
[2021-07-11 12:01] LABS: POC Glucose,Bedside 160 (70-110)
[2021-07-11 17:18] LABS: POC Glucose,Bedside 239 (70-110)
--- NOTE | 2021-07-11 17:42 | PC.NURSE ---
Patient remains on vapotherm at 40L/100% and 100% NRB, O2 saturations at rest 88-93, patients o2 saturations drop with minimal exertion, taking longer to recover than previous shift, has been treated for anxiety x1 this shift with meds per emar, voids per urinal, urine yellow and clear, lung sounds diminished t/o, will continue to monitor.
[2021-07-11 20:33] LABS: POC Glucose,Bedside 214 (70-110)
[2021-07-12] VITALS (18 sets, daily range): BP systolic 106–179; BP diastolic 52–86; PULSE 56–93; RESP 18–28; TEMP 36.3–37.2; O2SAT 88–98; BMI 37.7; BMI 37.8
--- NOTE | 2021-07-12 01:36 | PC.NURSE ---
new iv started above ac of right arm per patient request. states he sleeps on his stomach with extra pillows under him but has been unable to do that due to the iv. since starting new iv patient has stayed in prone position with sats sustaining 92-100% on vapotherm and non rebreather.
[2021-07-12 05:04] LABS: Basophils % 0.1 % (0.1-2.0); Hematocrit 34.5 % (42.0-52.0); Hemoglobin 11.6 g/dL (14.1-18.0); Lymphocytes # 0.4 K/mm3 (0.7-4.5); Lymphocytes % 2.5 % (10-50); Mean Corpuscular HGB Conc 33.6 g/dL (31.8-35.4); Mean Corpuscular Hemoglobin 29.9 pg (27.0-31.2); Mean Platelet Volume 8.1 fl (7.4-10.4); Monocytes # 0.6 K/mm3 (0.1-1.0); Neutrophils # 13.6 K/mm3 (1.8-7.8); Neutrophils % 93.4 % (37.0-80.0); Platelet Count 536 K/mm3 (142-424); Red Blood Count 3.87 M/mm3 (4.60-6.20); White Blood Count 14.5 K/mm3 (4.8-10.8)
[2021-07-12 05:06] LABS: MANUAL DIFFERENTIAL MANUAL DIFFERENTIAL (MANUAL DIFF)
[2021-07-12 05:14] LABS: Chloride 106 mmol/L (98-107); Sodium 137 mmol/L (136-145)
[2021-07-12 05:15] LABS: Potassium 5.1 mmoL/L (3.5-5.1)
[2021-07-12 05:17] LABS: Alanine Aminotransferase 32 U/L (12-78); Alkaline Phosphatase 90 U/L (38-126); Anion Gap 13.1 mEq/L (5-15); Aspartate Amino Transferase 46 U/L (17-59); Bilirubin,Total 0.5 mg/dl (0.2-1.3); Blood Urea Nitrogen 42 mg/dl (9-20); Calcium 8.4 mg/dl (8.4-10.2); Carbon Dioxide 23 mmol/L (22.0-30.0); Creatinine Clearance Estimated 133 mL/min (50-200); Estimated Glomerular Filt Rate 78 ml/min (>60); GFR (African American) 94 ML/MIN (>60); Glucose 210 mg/dl (74-100)
[2021-07-12 05:18] LABS: Albumin Level 2.9 g/dl (3.5-5.0); Albumin/Globulin Ratio 0.9 (1.1-1.8); Globulin 3.2 g/dL (1.3-3.2); Magnesium 2.5 mg/dl (1.6-2.3); Total Protein,Serum 6.1 g/dl (6.3-8.2)
[2021-07-12 05:26] LABS: Lymphocytes % 2 % (10-50); Neutrophils % 92 % (42-76); Platelet Estimate Slight Increase; RBC Morphology Normal; Total Cells Counted 100
--- NOTE | 2021-07-12 08:17 | HMH.ACPN2 ---
Internal Medicine - PN: Subj *Date: 07/12/21 *Time: 08:17 Interval history: Patient did a little better overnight, was able to prone himself and felt better, he remains on high support Vapotherm and Ventimask on the top of it but O2 saturations are able to be maintained mostly in the 90% range when he is lying flat. Heart rate and blood pressure are normal, has been alert, oriented. Has been eating some. Exam Vital signs and Labs for Last 24 Hours: Temp Pulse Resp BP Pulse Ox 97.3 F L 70 22 149/65 H 88 L 07/12/21 07:42 07/12/21 07:42 07/12/21 07:42 07/12/21 07:42 07/12/21 07:42 Laboratory Results - last 24 hr 07/11/21 11:35: POC Glucose 160 H 07/11/21 17:09: POC Glucose 239 H 07/11/21 20:25: POC Glucose 214 H 07/12/21 04:35: WBC 14.5 H, RBC 3.87 L, Hgb 11.6 L, Hct 34.5 L, MCV 89.0, MCH 29.9, MCHC 33.6, RDW 13.0, Plt Count 536 H, MPV 8.1, Neut % (Auto) 93.4 H, Lymph % (Auto) 2.5 L, [place] % (Auto) 4.0, Eos % (Auto) 0.0 L, Baso % (Auto) 0.1, Neut # (Auto) 13.6 H, Lymph # (Auto) 0.4 L, [place] # (Auto) 0.6, Eos # (Auto) 0.0, Baso # (Auto) 0.0, Total Counted 100, Neutrophils % (Manual) 92 H, Band Neutrophils % 6.0, Lymphocytes % (Manual) 2 L, Platelet Estimate Slight increase, RBC Morphology Normal 07/12/21 04:35: Sodium 137, Potassium 5.1, Chloride 106, Carbon Dioxide 23, Anion Gap 13.1, BUN 42 H, Creatinine 1.00, Estimated Creat Clear 133, Estimated GFR 78, Est GFR ( Amer) 94, Glucose 210 H, Calcium 8.4, Magnesium 2.5 H, Total Bilirubin 0.5, AST 46 D, ALT 32, Alkaline Phosphatase 90, Total Protein 6.1 L, Albumin 2.9 L, Globulin 3.2, Albumin/Globulin Ratio 0.9 L I & O for Last 24 hours: Intake & Output 07/09/21 07/10/21 07/11/21 07/12/21 11:59 11:59 11:59 11:59 Intake Total 320 / 320 1333 / 1333 1850 / 1850 Output Total 900 / 900 1225 / 1225 1750 / 1750 Balance -580 / -580 108 / 108 100 / 100 Weight 245 lb 4.8 oz 246 lb 8 oz 248 lb 11.2 oz Microbiology Reports for the Last 24 Hours: Microbiology 07/09/21 15:25 Blood Blood Culture - Preliminary NO GROWTH AFTER 48 HOURS 07/09/21 15:25 Blood Blood Culture - Preliminary Gram Positive Cocci Narrative: Patient is alert, talkative. Oropharynx clear, no JVD. Heart rate regular. Lungs have somewhat diminished air movement but no significant crackles. Abdomen soft, nontender. Neurologically intact. No rash. Assessment and Plan (1) Acute respiratory failure with hypoxia Status: Acute Category: Medical Code(s): J96.01 - Acute respiratory failure with hypoxia (2) Pneumonia due to COVID-19 virus Status: Acute Category: Medical Code(s): U07.1 - COVID-19; J12.82 - Pneumonia due to coronavirus disease 2019 (3) CAD (coronary artery disease) Status: Chronic Qualifiers: Category: Medical Code(s): I25.10 - Atherosclerotic heart disease of [place] coronary artery without angina pectoris (4) Diabetes Status: Chronic Qualifiers: Category: Medical Code(s): E11.9 - Type 2 diabetes mellitus without complications (5) HLD (hyperlipidemia) Status: Chronic Qualifiers: Category: Medical Code(s): E78.5 - Hyperlipidemia, unspecified (6) HTN (hypertension) Status: Chronic Category: Medical Code(s): I10 - Essential (primary) hypertension (7) JAYLIN (obstructive sleep apnea) Status: Chronic Category: Medical Code(s): G47.33 - Obstructive sleep apnea (adult) (pediatric) (8) Hypothyroid Status: Chronic Qualifiers: Hypothyroidism type: acquired Qualified Code(s): E03.9 - Hypothyroidism, unspecified Category: Medical Code(s): E03.9 - Hypothyroidism, unspecified (9) Anxiety Status: Chronic Category: Medical Code(s): F41.9 - Anxiety disorder, unspecified (10) Class 2 obesity Status: Chronic Category: Medical Code(s): E66.9 - Obesity, unspecified - Assessment and plan all Dx Assessment and Plan for all pro
--- NOTE | 2021-07-12 15:50 | PC.NURSE ---
Pt unable to produce sputum specimen at this time. Specimen cup at bedside.
[2021-07-12 16:17] LABS: POC Glucose,Bedside 194 (70-110)
--- NOTE | 2021-07-12 17:26 | PC.NURSE ---
Pt is alert and oriented x4. Lungs are diminished throughout with some rhonchi noted in the LML. He remains on 40L/100% vapotherm and 100% NRB with O2 sats ranging from 88-97% at rest. O2 sats drop down to low 80's with exertion but he recovers fairly quick (approx 5min) with rest. He had one episode of anxiety in the afternoon. PRN xanax administered with favorable results. He has proned approx 4hrs thus far this shift. Appetite has been very poor with patient eating 0% of meals. He has utilized a urinal at bedside. Urine is clear and straw in color. He's been NSR on telemetry. Glucose was 141 and 194 on checks. Covered per SSI.
--- NOTE | 2021-07-12 23:27 | PC.NURSE ---
He is A&Ox3. He denies pain. Dayshift nurses were unable to obtain a new IV site. IV fluids off at this time so patient can lay prone. He has agreed to use call light when he decides to turn back over so that fluids can be restarted. He also has some anxiety. He was administered his PRN medication for anxiety. He turns and repositions himself in bed but sometimes needs assistance with the tubing.
[2021-07-13] VITALS (50 sets, daily range): BP systolic 69–203; BP diastolic 31–116; PULSE 74–122; RESP 0–32; TEMP 36.2–37.1; O2SAT 70–98; BMI 38.0
--- NOTE | 2021-07-13 06:08 | PC.NURSE ---
Respiratory notified of pt with decreased sats. Respiratory's O2 sat read 70% which in same as on the monitor. Respiratory suggested a bipap. Dr. Acevedo notified of pt's O2 sat and gave order for bipap at this time.
--- NOTE | 2021-07-13 06:15 | PC.NURSE ---
Pt did not tolerate bipap. Respiratory is switching him back to vapotherm & non-rebreather.
[2021-07-13 06:35] LABS: ABG Base Excess -9.3 mmol/L (-2.4-2.3); ABG HCO3 15.6 mmhg (22.0-26.0); ABG Oxygen Saturation 48 % (90-100); ABG PCO2 26.1 mmhg (35.0-45.0); ABG TCO2 16.4 mmhg (23-27)
--- NOTE | 2021-07-13 07:27 | PC.NURSE ---
Panda red called at 0620. People responded: Anna Marie, RN; Michelle,RN; Carolann, RN; Marjorie, RN; Yumi, RT; Pamela, RT; Wilman, RN; and Dr. Troncoso. His was notified by Michelle at 0630. Anesthesia paged per Dr. Troncoso request at 0631 Christopher Cheung CRNA at the bedside at 0638 0640-Rocc 200, Succ 200, propofol 50 administered. She was intubated by Christopher Cheung CRNA at 0644 with a 7.5 ETT that was 22 at the lip. 0646-Propofol gtt ordered. VS: 0625-HR 115, BP 175/90, O2 32% 0630-HR 120, BP 174/107, O2 54% 0635-BP 184/96, HR 121, O2 33% 0640-BP 153/118, HR 123-O2 20% Recording per Lisa Torres RN.
--- NOTE | 2021-07-13 07:33 | XR_ITS ---
PROCEDURE: XR CHEST PORTABLE CLINICAL HISTORY: Pt intubated. Respiratory failure, Covid19 COMPARISON: CR XR CHEST PORTABLE from 07/07/[address] ANGIO CHEST PE PROTOCOL from 07/09/2021 FINDINGS: 7:40 a.m.. Endotracheal tube is present. The tip is in good position 6 cm above the samuel at the T3 level. Hazy consolidation is present in both lower lobes consistent with bilateral Covid19 pneumonia which is worse compared to the previous exam. No evidence of pneumothorax. Normal heart size. Overlying monitoring leads noted IMPRESSION: Endotracheal tube in good position. Progression of bilateral pneumonia Dictated by: Dayton Davis MD 07/13/2021 07:53 Dayton Davis MD in OV 07/13/2021 07:53
--- NOTE | 2021-07-13 07:41 | HMH.ACPN2 ---
Internal Medicine - PN: Subj *Date: 07/13/21 *Time: 09:18 Interval history: Mr. Carson decompensated over the past 24 hours. Had low saturations overnight and inability to rebound on maximal noninvasive support. Decision made overnight to intubate. Patient was significantly more anxious and tachypneic prior to intubation. On assessment this morning he is on a ventilator, sedated with propofol and fentanyl. Blood pressure currently within a normal range. Tachycardic. Saturations 91 to 93% on current vent settings. -Ventilator on assist control, 480 cc, FiO2 100%, rate 20, PEEP 18. ET tube at 25 cm at the lip. -X-ray reviewed this morning Exam Vital signs and Labs for Last 24 Hours: Temp Pulse Resp BP Pulse Ox 98.4 F 122 H 16 190/102 H 96 07/13/21 07:21 07/13/21 07:21 07/13/21 07:21 07/13/21 07:21 07/13/21 07:21 Laboratory Results - last 24 hr 07/12/21 16:09: POC Glucose 194 H I & O for Last 24 hours: Intake & Output 07/10/21 07/11/21 07/12/21 07/13/21 23:59 23:59 23:59 23:59 Intake Total 1413 / 1533 1970 / 1970 2888 / 2888 Output Total 1800 / 1800 1275 / 1775 1675 / 1675 180 / 180 Balance -387 / -267 695 / 195 1213 / 1213 -180 / -180 Weight 111.266 kg 111.811 kg 113 kg 113.766 kg Microbiology Reports for the Last 24 Hours: Microbiology 07/09/21 15:25 Blood Blood Culture - Preliminary Staphylococcus saprophyticus - Constitutional mild distress, obese, obtunded - *Routine HEENT Exam Head: Present: normocephalic Eye: Present: EOMI, PERRL ENT: Present: mucous membranes moist - *Routine Neck Exam Present: supple. Absent: lymphadenopathy - *Routine Respiratory Exam Present: patient mechanically ventilated, distant breath sounds. Absent: wheezes, crackles - *Routine Cardiovascular Exam Present: Normal S1, tachycardia. Absent: murmur - *Routine Abdominal Exam Present: soft, normoactive bowel sounds. Absent: tenderness - *Routine Extremities Exam Absent: cyanosis, clubbing, edema - *Routine Skin Exam Present: warm. Absent: rash - *Routine Neurological Exam sedated Assessment and Plan (1) Acute respiratory distress syndrome (ARDS) due to COVID-19 virus Status: Acute Category: Medical Code(s): U07.1 - COVID-19; J80 - Acute respiratory distress syndrome severe PaO2/FiO2 , Patient continued to decline over the past 24 hours. Intubated this morning after failure of several days of Vapotherm 100% FiO2. We will proceed with high PEEP low FiO2 settings. [place] body weight calculated to 69 kg. Tidal volume range 6 cc/kg 414, 8 cc/kg 552. - Settings adjusted on rounds to VC-A/CMV PEEP of 18, volume 480, rate 20, FiO2 100% - Sedation and pain control per protocol with propofol and fentanyl -ET tube 7.5, 25 cm at the lip -OG placed -Souza in place -Nutrition consult, will hold on tube feeds for now but consider initiating in the next 12 to 24 hours (2) Acute respiratory failure with hypoxia Status: Acute Category: Medical Code(s): J96.01 - Acute respiratory failure with hypoxia (3) Pneumonia due to COVID-19 virus Status: Acute Category: Medical Code(s): U07.1 - COVID-19; J12.82 - Pneumonia due to coronavirus disease 2019 (4) CAD (coronary artery disease) Status: Chronic Qualifiers: Category: Medical Code(s): I25.10 - Atherosclerotic heart disease of [place] coronary artery without angina pectoris (5) Diabetes Status: Chronic Qualifiers: Category: Medical Code(s): E11.9 - Type 2 diabetes mellitus without complications (6) HLD (hyperlipidemia) Status: Chronic Qualifiers: Category: Medical Code(s): E78.5 - Hyperlipidemia, unspecified (7) HTN (hypertension) Status: Chronic Category: Medical Code(s): I10 - Essential (primary) hypertension (8) JAYLIN (obstructive sleep apnea) Status: Chronic Category: Medical Code(s): G47.33 - Obstructive sleep apnea (adult) (pediatric)
[2021-07-13 08:35] LABS: ABG Base Excess -11.8 mmol/L (-2.4-2.3); ABG HCO3 20.4 mmhg (22.0-26.0); ABG Oxygen Saturation 89 % (90-100); ABG PO2 89.8 mmhg (80-100); ABG TCO2 23.4 mmhg (23-27)
[2021-07-13 08:35] LABS: Microscopic, Urine URINE MICROSCOPIC (MICROSCOPIC)
[2021-07-13 08:35] LABS: Allen's Test Patient Unable; Oxygen 100 %
--- NOTE | 2021-07-13 08:35 | PC.NURSE ---
Dr. Melgar @ [facility] and has been updated on critical ABG results: pH 6.943 and CO2 96.5
[2021-07-13 08:36] LABS: Source Left Radial
[2021-07-13 08:37] LABS: Allen's Test Patient Unable; Oxygen 100 %; PEEP 18; Source Left Radial; Tidal Volume 420; Vent Rate 18
[2021-07-13 08:40] LABS: ABG PCO2 96.5 mmhg (35.0-45.0); ABG PH 6.94 mmol/L (7.35-7.45)
[2021-07-13 08:42] LABS: ABG PO2 26.9 mmhg (80-100)
[2021-07-13 08:46] LABS: Appearance,Urine CLEAR (Clear); Bilirubin,Urine Negative (Negative); Blood, Urine 1+ (Negative); Color,Urine YELLOW (Yellow); Glucose,Urine (UA) Negative (Negative); Ketones,Urine Negative (Negative); Leukocyte Esterase,Urine Negative (Negative); Nitrate,Urine Negative (Negative); PH,Urine 5.5 (5.0-8.5); Protein,Urine 2+ (Negative); Specific Gravity, Urine >= 1.030 (1.005-1.030)
[2021-07-13 09:37] LABS: Basophils # 0.4 K/mm3 (0-0.2); Basophils % 1.1 % (0.1-2.0); Eosinophils % 0.1 % (0.1-12.0); Hematocrit 42.8 % (42.0-52.0); Hemoglobin 13.3 g/dL (14.1-18.0); Lymphocytes # 1.3 K/mm3 (0.7-4.5); Lymphocytes % 3.9 % (10-50); Mean Corpuscular Hemoglobin 29.4 pg (27.0-31.2); Mean Corpuscular Volume 94.6 fl (80-94); Mean Platelet Volume 7.9 fl (7.4-10.4); Monocytes # 0.9 K/mm3 (0.1-1.0); Monocytes % 2.7 % (1.7-9.3); Neutrophils # 31.5 K/mm3 (1.8-7.8); Neutrophils % 92.1 % (37.0-80.0); Platelet Count 594 K/mm3 (142-424); Red Blood Count 4.52 M/mm3 (4.60-6.20); Red Cell Distribution Width 13.1 % (11.5-17.5); White Blood Count 34.2 K/mm3 (4.8-10.8)
[2021-07-13 09:41] LABS: MANUAL DIFFERENTIAL MANUAL DIFFERENTIAL (MANUAL DIFF)
[2021-07-13 09:51] LABS: Chloride 104 mmol/L (98-107)
[2021-07-13 09:53] LABS: Hypochromasia 3+; Lymphocytes % 3 % (10-50); Monocytes % 4 % (2-9); Neutrophils % 93 % (42-76); Platelet Estimate Normal; Total Cells Counted 100
[2021-07-13 09:54] LABS: Alanine Aminotransferase 56 U/L (12-78); Albumin Level 3.2 g/dl (3.5-5.0); Albumin/Globulin Ratio 0.8 (1.1-1.8); Alkaline Phosphatase 185 U/L (38-126); Anion Gap 17.1 mEq/L (5-15); Aspartate Amino Transferase 86 U/L (17-59); Bilirubin,Total 0.7 mg/dl (0.2-1.3); Blood Urea Nitrogen 39 mg/dl (9-20); Carbon Dioxide 22 mmol/L (22.0-30.0); Creatinine Clearance Estimated 103 mL/min (50-200); Estimated Glomerular Filt Rate 57 ml/min (>60); GFR (African American) 69 ML/MIN (>60); Globulin 3.8 g/dL (1.3-3.2); Sodium 137 mmol/L (136-145)
[2021-07-13 09:55] LABS: Calcium 8.6 mg/dl (8.4-10.2); Glucose 396 mg/dl (74-100)
--- NOTE | 2021-07-13 10:02 | PC.NURSE ---
received call from lab ([facility]) with critical results: K 6.1. Name and verified. Dr. Melgar notified.
[2021-07-13 10:03] LABS: Potassium 6.1 mmoL/L (3.5-5.1)
--- NOTE | 2021-07-13 10:15 | PC.NURSE ---
Dr. Melgar notified of the following critical ABG results: pH 6.86 and CO2 100.9
[2021-07-13 10:35] LABS: ABG Base Excess -15.7 mmol/L (-2.4-2.3); ABG HCO3 17.8 mmhg (22.0-26.0); ABG Oxygen Saturation 93 % (90-100); ABG PO2 104.5 mmhg (80-100); ABG TCO2 20.9 mmhg (23-27)
[2021-07-13 10:37] LABS: Oxygen 100 %; Tidal Volume 420
[2021-07-13 10:38] LABS: Allen's Test Patient Unable; PEEP 18; Source Left Radial; Vent Rate 20
[2021-07-13 10:42] LABS: ABG PH 6.86 mmol/L (7.35-7.45)
[2021-07-13 10:43] LABS: ABG PCO2 100.9 mmhg (35.0-45.0)
--- NOTE | 2021-07-13 10:47 | XR_ITS ---
PROCEDURE INFORMATION: Exam: XR Chest Exam date and time: 07/13/2021 10:47 AM Age: 56 years old Clinical indication: Other: Wosening ventilation; Patient HX: Covid + patient; Additional info: Worsening ventilation TECHNIQUE: Imaging protocol: XR of the chest. Views: 1 view. COMPARISON: CR XR CHEST PORTABLE 07/13/2021 7:40 AM FINDINGS: Tubes, catheters and devices: Endotracheal tube above the samuel adjacent to the level of the clavicles. nasogastric tube extends below the diaphragm although the location of the tip not identified as it is outside of the [id number]. Lungs: Subtle patchy airspace disease right mid lung, right lower lobe and left lung base. Pleural spaces: Unremarkable. No pleural effusion. No pneumothorax. Heart/Mediastinum: Unremarkable. No cardiomegaly. Bones/joints: Unremarkable. IMPRESSION: Subtle patchy airspace disease right mid lung, right lower lobe and left lung base.
--- NOTE | 2021-07-13 10:53 | PC.NURSE ---
Spoke to Dr. Melgar regarding 1045 ABG results: pH 6.864 and CO2 100.9. He ordered to increase vent rate to 26, repeat ABG in 1hr, and to consult Dr. Lizarraga. Dr. Lizarraga and RT (Alexa Nieto) updated.
--- NOTE | 2021-07-13 10:55 | DIET.NUTRFU ---
Addendum entered by Carmen aGytan 07/16/21 14:30: Enteral nutrition initiated yesterday, has tolerated well. Pt did have a GRV >100 earlier, stopped and restarted. Recommend continuing TF at 20ml/h and advancing slowly as tolerated unless GRV>250. If >250 will stop TF for 4h and restart at hypocaloric rate, advance as tolerated. BG moderate, avg. 160, renal function worsening- Creatinine 8 today, K remains high but slightly improved, weight stable. Pt had 4 BMs yesterday. He continues on IVF and propofol. Continuing to monitor/alter regimen as indicated. Addendum entered by Carmen Gaytan 07/14/21 16:28: Pt not yet started on TF dt pressors. Pt is having declining kidney function, recommend renal TF formula when initiated, order changed. Upon MD order, recommend initiating continuous tube feeding regimen of Nepro 1.8 at 20ml/h and advancing by 10ml/h q 8h as tolerated to goal rate of 42ml/h. Pt may need slower/lower advancing per tolerance. Pt currently receiving IVF of LR at 125ml/h. Recommend minimal water flushes of 30-60ml at GRV checks. If IVF dc'd recommend water flushes of 215ml q 4h to meet additional fluid needs not provided by formula. This regimen will provide 1814kcal, 81g protein, 161g cho, 96g fat, and 727ml free water(2000ml total fluids with flushes). Pt currently receiving propofol as well. Will monitor and alter nutritional care plan as indicated. Original Note: Nutrition Consult received to initiate TF. Order has been entered to begin pt on Pulmocare at 20ml/hr continuous and slowly increase to a goal rate of 50mL/hr cont. Pulmocare at goal rate of 50mL/hr will provide pt 1800kcal, 75g pro, 942 mL free H2O. Pt glucose running at 210, 396. Will monitor pt tolerance to TF formula. Pt intubated last night and is currently being sedated with propoful and receiving IV Fluids. Will adjust TF rate and fluids as needed to match patient needs.
--- NOTE | 2021-07-13 11:04 | PC.NURSE ---
spoke to Dr. Lizarraga. He gave the following orders: 2 amps Bicarb IV NOW, Vancomycin, Cefepime, repeat blood cx, tracheal aspirate is not completed this morning, insert deep line, and pressors prn hypotension. Dr. Lizarraga wants pt deeply sedated and not over breathing the vent. Orders faxed to pharmacy. Blood cx order entered. Called the OR and spoke to Dr. Block.
--- NOTE | 2021-07-13 11:36 | HMH.PHACONS ---
- Pharmacy Consult Date: 07/13/21 Time: 11:36 Referring provider: DR. CHAN Reason for Consult:: VANCOMYCIN DOSING Allergies and ADEs:: Allergies Allergy/AdvReac Type Severity Reaction Status Date / Time No Known Allergies Allergy Verified 07/09/21 15:43 Home Medications:: Home Medications Medication Instructions Recorded Confirmed Type Aspirin [Aspirin 81mg EC Tab] 81 mg PO DAILY 11/10/17 07/10/21 History Metformin HCl [Glucophage 500mg 1,000 mg PO BIDWMEAL 11/10/17 07/10/21 History Tablet] glimepiride 1 mg tablet 1 mg PO BIDWMEAL tab 10/02/18 07/10/21 History allopurinol 300 mg tablet 300 mg PO DAILY 03/09/20 07/10/21 History Ondansetron [Zofran 4mg ODT] 4 mg PO BIDP PRN #10 tab 07/07/21 07/09/21 Rx Atorvastatin Calcium [Lipitor 40mg 40 mg PO DAILY 07/09/21 07/10/21 History Tab] Lisinopril/Hydrochlorothiazide 1 tab PO DAILY 07/09/21 07/10/21 History [Lisinopril-Hctz 20-25 mg Tab*] dexAMETHasone [Dexamethasone] 4 mg PO BID 07/09/21 07/10/21 History Clopidogrel Bisulfate [Plavix] 75 mg PO DAILY 07/10/21 07/10/21 History Levothyroxine Sodium 137 mcg PO DAILY 07/10/21 07/10/21 History [Levothyroxine 137mcg (0.137mg) Tab] Sertraline HCl [Zoloft] 100 mg PO DAILY 07/10/21 07/10/21 History dilTIAZem HCl [Diltiazem 240mg 240 mg PO DAILY 07/10/21 07/10/21 History 24Hr ER Cap] Height: 1.73 m Weight: 113.766 kg Laboratory Results:: Laboratory Results - last 24 hr 07/12/21 16:09: POC Glucose 194 H 07/13/21 06:25: Specimen Source Left radial, O2 % 100, ABG pH 7.40, ABG pCO2 26.1 L, ABG pO2 26.9 L, ABG HCO3 15.6 L, ABG Total CO2 16.4 L, ABG O2 Saturation 48 L*, ABG Base Excess -9.3 L, [place] Test Patient unable, Vent Rate , Tidal Volume , PEEP 07/13/21 07:55: Urine Color Yellow, Urine Appearance Clear, Urine pH 5.5, Ur Specific [place] >= 1.030, Urine Protein 2+, Urine Glucose (UA) Negative, Urine Ketones Negative, Urine Blood 1+, Urine Nitrate Negative, Urine Bilirubin Negative, Urine Urobilinogen 1.0, Ur Leukocyte Esterase Negative, Urine RBC 5-10, Urine WBC 3-5, Ur Squamous Epith Cells 3-5, Urine Bacteria None 07/13/21 08:32: Specimen Source Left radial, O2 % 100, ABG pH 6.94 L*, ABG pCO2 96.5 H, ABG pO2 89.8, ABG HCO3 20.4 L, ABG Total CO2 23.4, ABG O2 Saturation 89 L, ABG Base Excess -11.8 L, [place] Test Patient unable, Vent Rate 18, Tidal Volume 420, PEEP 18 07/13/21 09:15: WBC 34.2 H* D, RBC 4.52 L, Hgb 13.3 L, Hct 42.8, MCV 94.6 H, MCH 29.4, MCHC 31.0 L, RDW 13.1, Plt Count 594 H, MPV 7.9, Neut % (Auto) 92.1 H, Lymph % (Auto) 3.9 L, [place] % (Auto) 2.7, Eos % (Auto) 0.1, Baso % (Auto) 1.1, Neut # (Auto) 31.5 H, Lymph # (Auto) 1.3, [place] # (Auto) 0.9, Eos # (Auto) 0.0, Baso # (Auto) 0.4 H, Total Counted 100, Neutrophils % (Manual) 93 H, Lymphocytes % (Manual) 3 L, Monocytes % (Manual) 4, Platelet Estimate Normal, Hypochromasia 3+ 07/13/21 09:15: Sodium 137, Potassium 6.1 H*, Chloride 104, Carbon Dioxide 22, Anion Gap 17.1 H, BUN 39 H, Creatinine 1.30 H D, Estimated Creat Clear 103, Estimated GFR 57 L, Est GFR ( Amer) 69 D, Glucose 396 H, Calcium 8.6, Total Bilirubin 0.7, AST 86 H D, ALT 56 D, Alkaline Phosphatase 185 H, Total Protein 7.0, Albumin 3.2 L D, Globulin 3.8 H, Albumin/Globulin Ratio 0.8 L 07/13/21 10:02: Specimen Source Left radial, O2 % 100, ABG pH 6.86 L*, ABG pCO2 100.9 H, ABG pO2 104.5 H, ABG HCO3 17.8 L, ABG Total CO2 20.9 L, ABG O2 Saturation 93, ABG Base Excess -15.7 L, [place] Test Patient unable, Vent Rate 20, Tidal Volume 420, PEEP 18 Medical History: Reports:: Coronary Artery Disease, Diabetes Mellitus Type 2, Hyperlipidemia, Hypertension, Myocardial Infarction Denies:: Cancer, Diabetes Mellitus Type 1, Internal Pacemaker, Lung Disease, MRSA, Seizures Assessment and Plan (1) Acute respiratory distress syndrome (ARDS) due to COVID-19 virus Status: Acute Category: Medical Code(s): U07.1 - COVID-19; J80 - Acute respiratory distress syndrome (2) Acute respiratory failure
--- NOTE | 2021-07-13 11:44 | XR_ITS ---
PROCEDURE: XR CHEST PORTABLE CLINICAL HISTORY: central line placement COMPARISON: CR XR CHEST PORTABLE from 07/07/[address] ANGIO CHEST PE PROTOCOL from 07/09/2021 CR XR CHEST PORTABLE from 07/13/2021 CR XR CHEST PORTABLE from 07/13/2021 FINDINGS: Endotracheal tube tip is at the T3 level. Nasogastric tube tip is not visible on the exam but below the diaphragm. New left subclavian central venous line is present with the tip in the region of the SVC. No evidence of pneumothorax. Consolidation once again noted involving the right upper and right lower lobe and left lower lobe consistent bilateral pneumonia. IMPRESSION: Tubes and lines present as described above. New left subclavian central venous line is present with tip in the region the SVC. No evidence of pneumothorax. No change bilateral pneumonia Dictated by: Dayton Davis MD 07/13/2021 12:45 Dayton Davis MD in [facility] 07/13/2021 12:45
--- NOTE | 2021-07-13 11:56 | P.OP_ITS ---
Date of procedure: 07/13/21 Pre-op Diagnosis:: Need for central venous access Post-op Diagnosis:: Same Procedure performed:: Placement of nontunneled 7 [place] triple-lumen catheter in left subclavian vein Surgeon:: Juarez Block MD Anesthesia: local Estimated blood loss (mL): 15 Clinical Note:: Patient is a 56-year-old male from [place] who had been diagnosed with COVID-19 which initially was being managed at home. He was requiring home oxygenation. He had worsening dyspnea with desaturations and shortness of breath. He was admitted for inpatient management and initiated on Vapotherm. Patient had worsening respiratory status despite maximal noninvasive support over the past 24 hours and was intubated early this morning. He has been hypotensive. Due to the increasing need for central venous access surgical consultation was obtained for deep line placement. Operative findings:: Unremarkable anatomy Operative note:: Consent was obtained. Patient was positioned in Trendelenburg position. Left neck and chest were prepped and draped in the standard surgical fashion. Local anesthetic was infiltrated inferior to the left clavicle medial to the deltopectoral groove. Due to the patient's body habitus landmarks were somewhat difficult to identify. Ultimately with several passes of needle the left subclavian vein was cannulated with good return of venous blood flow. Guidewire was inserted. Small incision was made at the insertion site. Subcutaneous tissues were dilated. 7 [place] triple-lumen catheter was inserted over the guidewire using Seldinger technique. It was secured to the skin at approximately the 16 cm crystal. All ports aspirated and flushed without difficulty. Chest x-ray pending at the time of this dictation. Condition: other Disposition: no change Complications:: None immediately apparent
[2021-07-13 13:36] LABS: ABG Base Excess -9.3 mmol/L (-2.4-2.3); ABG HCO3 20.9 mmhg (22.0-26.0); ABG Oxygen Saturation 96 % (90-100); ABG PO2 105.2 mmhg (80-100); ABG TCO2 23.2 mmhg (23-27)
[2021-07-13 13:38] LABS: Oxygen 100 %; PEEP 18; Source Left Radial; Tidal Volume 480; Vent Rate 26
[2021-07-13 13:39] LABS: ABG PH 7.07 mmol/L (7.35-7.45)
--- NOTE | 2021-07-13 13:41 | PC.NURSE ---
RESPIRATORY CARE NOTE: PER DR CHAN VERBAL ORDER INCREASED SET RATE TO 28, AND INCREASED PEEP TO +20 AT THIS TIME. WILL CONTINUE TO MONITOR PT PEAK PRESSURES AT THIS TIME.
--- NOTE | 2021-07-13 13:43 | HMH.PULMCON ---
*Admission Date: 07/09/21 *Reason for consult:: Acute hypoxic respiratory failure, COVID-19 pneumonia *History of present illness: Patient intubated and sedated much of the history is obtained from chart review Mr. Carson is a 56-year-old male presented to the hospital with worsening respiratory distress after diagnosed with COVID-19 pneumonia 1 week prior to presentation and having worsening oxygen requirements that gradually worsened over this hospital admission eventually needing intubation and mechanical ventilation pulmonary was called for further management [facility] History Medical History: Reports:: Coronary Artery Disease, Diabetes Mellitus Type 2, Hyperlipidemia, Hypertension, Myocardial Infarction Denies:: Cancer, Diabetes Mellitus Type 1, Internal Pacemaker, Lung Disease, MRSA, Seizures *Have you ever received a pneumonia vaccine?: No *Have you received a flu vaccine this season?: Yes Other Medical History: Denies: Blood Transfusion Reaction Other Surgeries: Yes: Angioplasty (5 stents), Cardiac Catheterization, Colonoscopy, Coronary Stent. No: Pacemaker Amputation: No Fractures: No - *Social History Smoking Status: Never smoker Alcohol Intake: never Substance Use Type: denies use *Occupational Status:: employed Household Members: significant other *Travel in the last 8 weeks: None Family Hx:: Unable to obtain ROS - Review of Systems Review of systems:: unable to obtain Unable to obtain as patient was intubated and sedated Meds Home Medications Medication Instructions Recorded Confirmed Type Aspirin [Aspirin 81mg EC Tab] 81 mg PO DAILY 11/10/17 07/10/21 History Metformin HCl [Glucophage 500mg 1,000 mg PO BIDWMEAL 11/10/17 07/10/21 History Tablet] glimepiride 1 mg tablet 1 mg PO BIDWMEAL tab 10/02/18 07/10/21 History allopurinol 300 mg tablet 300 mg PO DAILY 03/09/20 07/10/21 History Ondansetron [Zofran 4mg ODT] 4 mg PO BIDP PRN #10 tab 07/07/21 07/09/21 Rx Atorvastatin Calcium [Lipitor 40mg 40 mg PO DAILY 07/09/21 07/10/21 History Tab] Lisinopril/Hydrochlorothiazide 1 tab PO DAILY 07/09/21 07/10/21 History [Lisinopril-Hctz 20-25 mg Tab*] dexAMETHasone [Dexamethasone] 4 mg PO BID 07/09/21 07/10/21 History Clopidogrel Bisulfate [Plavix] 75 mg PO DAILY 07/10/21 07/10/21 History Levothyroxine Sodium 137 mcg PO DAILY 07/10/21 07/10/21 History [Levothyroxine 137mcg (0.137mg) Tab] Sertraline HCl [Zoloft] 100 mg PO DAILY 07/10/21 07/10/21 History dilTIAZem HCl [Diltiazem 240mg 240 mg PO DAILY 07/10/21 07/10/21 History 24Hr ER Cap] Allergies Allergy/AdvReac Type Severity Reaction Status Date / Time No Known Allergies Allergy Verified 07/09/21 15:43 Exam - Constitutional Constitutional:: Present: no acute distress, comfortable - HENMT Exam HENMT: Present: normocephalic, atraumatic - Eye Exam Eyes:: Present: normal appearance both eyes and related structures - Neck Exam Neck:: Present: normal visual inspection - Respiratory Exam Respiratory:: Present: respiratory distress, decreased breath sounds, crackles - Cardiovascular Exam Cardiac:: Present: S1, S2 - GI Exam GI:: Present: soft - Skin Exam Skin: Present: warm, no rash - Neurological Exam Neurological: Absent: alert, awake, normal cognition Internal Medicine - CN: Reslt - Labs CBC & Chem 7: 07/13/21 09:15 07/13/21 09:15 Labs: Short CBC 07/13/21 Range/Units 09:15 WBC 34.2 H* D (4.8-10.8) K/mm3 Hgb 13.3 L (14.1-18.0) g/dL Hct 42.8 (42.0-52.0) % Plt Count 594 H (142-424) K/mm3 BMP 07/13/21 09:15 Sodium 137 Potassium 6.1 H* Chloride 104 Carbon Dioxide 22 BUN 39 H Creatinine 1.30 H D Glucose 396 H Calcium 8.6 Liver Function 07/13/21 Range/Units 09:15 Total Bilirubin 0.7 (0.2-1.3) mg/dl AST 86 H D (17-59) U/L ALT 56 D (12-78) U/L Alkaline Phosphatase 185 H (38-126) U/L Albumin 3.2 L D (3.5-5.0) g/dl Urine 07/13/21
--- NOTE | 2021-07-13 13:47 | CA_ITS ---
APPROVED REPORT Bilateral Lower Extremity Venous Study for DVT. V Belt Curer: ALEJANDRA Indications Shortness of breath rule out DVTs, COVID, pneumonia Risk Factors Obesity Vein Imaging CFV (R): compressive, spontaneous, phasic, augmentation FEM (R): compressive, spontaneous, phasic, augmentation POP (R): compressive, spontaneous, phasic, augmentation PTV (R): Compressible Peroneals (R):Compressible CFV (L): compressive, spontaneous, phasic, augmentation FEM (L): compressive, spontaneous, phasic, augmentation POP (L): compressive, spontaneous, phasic, augmentation PTV (L): Compressible Peroneals (L):Compressible Findings No evidence of DVT or superficial thrombophlebitis in the veins scanned of the right lower extremity. No evidence of DVT or superficial thrombophlebitis in the veins scanned of the left lower extremity. Conclusion No evidence of DVT or superficial thrombophlebitis in the veins scanned of the right lower extremity. No evidence of DVT or superficial thrombophlebitis in the veins scanned of the left lower extremity Electronically signed by : Dayton Davis MD 07/13/2021 16:35:21
[2021-07-13 15:11] LABS: ABG Oxygen Saturation 97 % (90-100)
[2021-07-13 15:14] LABS: Magnesium 2.4 mg/dl (1.6-2.3)
[2021-07-13 15:15] LABS: Oxygen 100 %; PEEP 20; Source Right Brachial; Tidal Volume 480; Vent Rate 28
[2021-07-13 15:16] LABS: ABG HCO3 21.8 mmhg (22.0-26.0); ABG PCO2 67.1 mmhg (35.0-45.0); ABG PH 7.13 mmol/L (7.35-7.45); ABG TCO2 23.8 mmhg (23-27)
[2021-07-13 15:17] LABS: ABG Base Excess -8.2 mmol/L (-2.4-2.3)
--- NOTE | 2021-07-13 16:48 | PC.NURSE ---
1530: Dr. Lizarraga at bedside. Charity Jeffrey RN at bedside and assisting with Dr. Lizarraga to place arterial line, Dr. Lizarraga unsuccessful. 1610: Respiratory staff, Charity Jeffrey RN, Pathology Supervisor Rogelio Chahal RN, Sylvie Chapin RN at bedside to assist with proning of patient while intubated. Dr. Lizarraga also at bedside and VO given to Charity Jeffrey RN for Roccuronium 50mg via IV for proning. Patient proned at this time. Tube placement: 25 at the teeth. Pressure relief in place to hands, elbow, feet, and sheep skin to bony prominences. 1640: Dr. Lizarraga gave Charity Jeffrey, RN VO's to start an insulin drip regarding hyperkalemia and kayexalate via og now and bid.
[2021-07-13 17:54] LABS: POC Glucose,Bedside 406 (70-110)
--- NOTE | 2021-07-13 18:29 | PC.NURSE ---
shift note: pt intubated prior to my arrival. Multiple vent changes made today per Dr. Lizarraga and Dr. Melgar. Current vent settings: 100% FiO2, AC, 28, 480, 20/-. Pt has 7.5 ET tube and is 25cm at the teeth. 16fr OG tube was inserted and is 65cm @ the lip. OG is clamped. Pt has the following gtts infusing via left SC TLDL: Propofol @ 75mcg/kg/min, Fentanyl @ 50mcg/hr, Levophed @ 30mcg/min, Vasopressin @ 0.04units/min, and Insulin @ 4units/hr. FSBS to be completed Q2hrs ATC and Insulin gtt titrated accordingly. Dr. Block inserted left SC TLDL around [address] Lizarraga attempted arterial line but was unsuccessful. Pt was proned @ aprox 1615 and will remain proned per Dr. Lizarraga until he rounds @ 0900. O2 sat high 90s when prone. Keep SBP>[address] Lizarraga. NSR on tele. Has been sinus tach on tele. Peaked T waves. Souza cath noted. SO (Shanice) has been updated multiple times today and she has given verbal consent for central line and arterial line.
[2021-07-13 19:22] LABS: ABG Base Excess -6.8 mmol/L (-2.4-2.3); ABG HCO3 22.8 mmhg (22.0-26.0); ABG Oxygen Saturation 99 % (90-100); ABG PO2 238.6 mmhg (80-100); ABG TCO2 25.1 mmhg (23-27); Oxygen 100 %; Tidal Volume 480
[2021-07-13 19:23] LABS: PEEP 20; Source R/B; Vent Rate 28
[2021-07-13 19:24] LABS: ABG PCO2 75.1 mmhg (35.0-45.0)
--- NOTE | 2021-07-13 19:39 | PC.NURSE ---
1929 dr. campos notified of critical abg results, new orders received to increase peep 22
[2021-07-13 19:51] LABS: POC Glucose,Bedside 363 (70-110)
[2021-07-13 22:03] LABS: POC Glucose,Bedside 283 (70-110)
--- NOTE | 2021-07-13 22:28 | PC.NURSE ---
ROTATED HEAD TO THE LEFT SIDE. SATS WERE STABLE AT 99%. TUBE PLACEMENT CONFIRMED BY PAULO SILVA, KEZNIE RN 25 AT THE TEETH.
[2021-07-14] VITALS (35 sets, daily range): BP systolic 96–122; BP diastolic 50–70; PULSE 62–79; RESP 0–35; TEMP 35.8–37.4; O2SAT 98–100; BMI 39.6
[2021-07-14 00:12] LABS: POC Glucose,Bedside 296 (70-110)
[2021-07-14 00:12] LABS: POC Glucose,Bedside 276 (70-110)
--- NOTE | 2021-07-14 00:26 | PC.NURSE ---
[address] wren 0030 received call back from dr. wren updated on no urine output last hour, end tidal co2 53, rr 29, dropping temp of 96.6 rectally. propofol at 80 mcq and fentanyl at 150 mcq. order to continue increasing fentanyl if needed.
--- NOTE | 2021-07-14 01:00 | PC.NURSE ---
1999 fsbs 363 on 4 units insulin,arms repositioned 2100 fsbs 333 on 4 units insulin, levophed decreased to 28, end tidal co2 45 2200 fsbs 282 insulin decreased to 2 units, levo decreased to 24 mcq, arms repositioned propofol increased to 80 mcqend tidal co2 47 2215 fentanyl increased to 75 mcq for rr 31 2230 fentanyl drip increased 100 mcq for rr 31. 2300 fsbs 292 insulin drip increased to 3 units, fentanyl increased to 125mcq end tidal co2 51 2330 fentanyl drip increased tp 150 mcq for rr 30 0000 fsbs 276 insulin drip at 3 units end tidal co2 51, arms repositioned. 0100 fsbs 263 insulin drip at 3 units end tidal co2 52
[2021-07-14 01:04] LABS: POC Glucose,Bedside 263 (70-110)
[2021-07-14 02:00] LABS: POC Glucose,Bedside 272 (70-110)
--- NOTE | 2021-07-14 02:05 | PC.NURSE ---
0200 fsbs 272 insulin increased to 4 unit, levophed decreased to 20 mcq, no urine output again this hour.
--- NOTE | 2021-07-14 03:08 | PC.NURSE ---
0300 fs bs 240 insulin drip at 4 units, levophed drip decreased to 18 mcq, no urine output
[2021-07-14 03:09] LABS: POC Glucose,Bedside 240 (70-110)
[2021-07-14 04:04] LABS: POC Glucose,Bedside 214 (70-110)
--- NOTE | 2021-07-14 04:44 | PC.NURSE ---
Turned patient's head at 0435. Tube 25 at teeth.
--- NOTE | 2021-07-14 05:00 | PC.NURSE ---
0400 fsbs 216 insulin at 4 units. vasopressor off head and arms rotated 0445 vasopressor back on at previous rate blood pressure was 99/52 with map of 64 0500 fsbs 220 insulin at 4 units/hr
[2021-07-14 05:05] LABS: POC Glucose,Bedside 220 (70-110)
--- NOTE | 2021-07-14 05:12 | HMH.ITSTN ---
per AURELIA Sifuentes, pt is prone and wont be supine until 0900 & CXR is to be performed when pt is supine again.
--- NOTE | 2021-07-14 05:21 | PC.NURSE ---
0530 levophed decreased to 16 mcq
--- NOTE | 2021-07-14 05:32 | PC.NURSE ---
0200 fentanyl decreased to 125 0300 fentanyl decreased to 100 0400 fentanyl decreased to 75 0500 fentanyl decreased to 50
--- NOTE | 2021-07-14 05:37 | PC.NURSE ---
dr. wren call for status update, notified of peak pressures, sats, urine output, sats dropping to 80% when changing end tidal co2 sensor. communication order to hold vancomycin until after am labs, hold abgs and pcxr until patient is supine
--- NOTE | 2021-07-14 05:52 | PC.NURSE ---
fsbs 205 insulin at 4 units hr
[2021-07-14 05:55] LABS: POC Glucose,Bedside 205 (70-110)
[2021-07-14 06:54] LABS: Basophils # 0.3 K/mm3 (0-0.2); Basophils % 1.1 % (0.1-2.0); Lymphocytes # 0.5 K/mm3 (0.7-4.5); Lymphocytes % 2.1 % (10-50); Mean Corpuscular HGB Conc 30.9 g/dL (31.8-35.4); Mean Corpuscular Hemoglobin 29.8 pg (27.0-31.2); Mean Corpuscular Volume 96.4 fl (80-94); Mean Platelet Volume 8.7 fl (7.4-10.4); Monocytes # 0.7 K/mm3 (0.1-1.0); Monocytes % 3.3 % (1.7-9.3); Neutrophils # 20.9 K/mm3 (1.8-7.8); Neutrophils % 93.5 % (37.0-80.0); Platelet Count 386 K/mm3 (142-424); Red Blood Count 3.74 M/mm3 (4.60-6.20); Red Cell Distribution Width 13.3 % (11.5-17.5); White Blood Count 22.4 K/mm3 (4.8-10.8)
[2021-07-14 06:57] LABS: Hemoglobin 11.1 g/dL (14.1-18.0); MANUAL DIFFERENTIAL MANUAL DIFFERENTIAL (MANUAL DIFF)
[2021-07-14 07:16] LABS: Magnesium 2.8 mg/dl (1.6-2.3)
[2021-07-14 07:32] LABS: Alanine Aminotransferase 38 U/L (12-78); Albumin Level 2.7 g/dl (3.5-5.0); Albumin/Globulin Ratio 0.8 (1.1-1.8); Alkaline Phosphatase 118 U/L (38-126); Anion Gap 18.9 mEq/L (5-15); Aspartate Amino Transferase 52 U/L (17-59); Bilirubin,Total 0.3 mg/dl (0.2-1.3); Blood Urea Nitrogen 59 mg/dl (9-20); Calcium 7.5 mg/dl (8.4-10.2); Carbon Dioxide 23 mmol/L (22.0-30.0); Chloride 101 mmol/L (98-107); Creatinine Clearance Estimated 35 mL/min (50-200); Estimated Glomerular Filt Rate 17 ml/min (>60); GFR (African American) 20 ML/MIN (>60); Globulin 3.5 g/dL (1.3-3.2); Glucose 209 mg/dl (74-100); Sodium 135 mmol/L (136-145); Total Protein,Serum 6.2 g/dl (6.3-8.2)
[2021-07-14 07:40] LABS: Potassium 7.9 mmoL/L (3.5-5.1)
--- NOTE | 2021-07-14 07:41 | PC.NURSE ---
received call from lab ([facility]) reporting that K 7.9. Name and verified. Dr. Herring rounding and has been updated.
[2021-07-14 07:46] LABS: Hypochromasia 1+; Lymphocytes % 3 % (10-50); Monocytes % 4 % (2-9); Neutrophils % 91 % (42-76); Platelet Estimate Normal; Total Cells Counted 100
--- NOTE | 2021-07-14 07:47 | XR_ITS ---
PROCEDURE: XR CHEST PORTABLE CLINICAL HISTORY: f/u icu exam Covid19 pneumonia COMPARISON: CT CT ANGIO CHEST PE PROTOCOL from 07/09/2021 CR XR CHEST PORTABLE from 07/13/2021 CR XR CHEST PORTABLE from 07/13/2021 CR XR CHEST PORTABLE from 07/13/2021 FINDINGS: Endotracheal tube, nasogastric tube and left subclavian central venous line all remain in place in good position. Normal heart size. Multifocal ground-glass pneumonia once again noted in both lungs probably not significantly changed considering difference in technique. No evidence of pneumothorax. IMPRESSION: Tubes and lines in good position with no change in the multifocal Covid19 pneumonia Dictated by: Dayton Davis MD 07/14/2021 11:02 Dayton Davis MD in [place] 07/14/2021 11:02
--- NOTE | 2021-07-14 07:48 | HMH.ACPN2 ---
Internal Medicine - PN: Subj *Date: 07/14/21 *Time: 07:48 Interval history: Patient actually did fairly well through the night, was stable but remains critically ill. Is on 2 pressors but blood pressure is in the low 100 range systolically with acceptable mean arterial pressures. Urine output has been good. Oxygenation has been stable with FiO2 90% but he is satting in the upper 90s. However his PEEP remains high at 22. He is he is sedated and prone. Exam Vital signs and Labs for Last 24 Hours: Temp Pulse Resp BP Pulse Ox 97.1 F L 74 28 H 107/60 L 98 07/14/21 07:32 07/14/21 07:32 07/14/21 07:32 07/14/21 07:32 07/14/21 07:32 Laboratory Results - last 24 hr 07/13/21 06:25: Specimen Source Left radial, O2 % 100, ABG pH 7.40, ABG pCO2 26.1 L, ABG pO2 26.9 L, ABG HCO3 15.6 L, ABG Total CO2 16.4 L, ABG O2 Saturation 48 L*, ABG Base Excess -9.3 L, [place] Test Patient unable, Vent Rate , Tidal Volume , PEEP 07/13/21 07:55: Urine Color Yellow, Urine Appearance Clear, Urine pH 5.5, Ur Specific [place] >= 1.030, Urine Protein 2+, Urine Glucose (UA) Negative, Urine Ketones Negative, Urine Blood 1+, Urine Nitrate Negative, Urine Bilirubin Negative, Urine Urobilinogen 1.0, Ur Leukocyte Esterase Negative, Urine RBC 5-10, Urine WBC 3-5, Ur Squamous Epith Cells 3-5, Urine Bacteria None 07/13/21 08:32: Specimen Source Left radial, O2 % 100, ABG pH 6.94 L*, ABG pCO2 96.5 H, ABG pO2 89.8, ABG HCO3 20.4 L, ABG Total CO2 23.4, ABG O2 Saturation 89 L, ABG Base Excess -11.8 L, [place] Test Patient unable, Vent Rate 18, Tidal Volume 420, PEEP 18 07/13/21 09:15: WBC 34.2 H* D, RBC 4.52 L, Hgb 13.3 L, Hct 42.8, MCV 94.6 H, MCH 29.4, MCHC 31.0 L, RDW 13.1, Plt Count 594 H, MPV 7.9, Neut % (Auto) 92.1 H, Lymph % (Auto) 3.9 L, [place] % (Auto) 2.7, Eos % (Auto) 0.1, Baso % (Auto) 1.1, Neut # (Auto) 31.5 H, Lymph # (Auto) 1.3, [place] # (Auto) 0.9, Eos # (Auto) 0.0, Baso # (Auto) 0.4 H, Total Counted 100, Neutrophils % (Manual) 93 H, Lymphocytes % (Manual) 3 L, Monocytes % (Manual) 4, Platelet Estimate Normal, Hypochromasia 3+ 07/13/21 09:15: Sodium 137, Potassium 6.1 H*, Chloride 104, Carbon Dioxide 22, Anion Gap 17.1 H, BUN 39 H, Creatinine 1.30 H D, Estimated Creat Clear 103, Estimated GFR 57 L, Est GFR ( Amer) 69 D, Glucose 396 H, Calcium 8.6, Total Bilirubin 0.7, AST 86 H D, ALT 56 D, Alkaline Phosphatase 185 H, Total Protein 7.0, Albumin 3.2 L D, Globulin 3.8 H, Albumin/Globulin Ratio 0.8 L 07/13/21 09:15: Phosphorus 10.0 H, Magnesium 2.4 H 07/13/21 10:02: Specimen Source Left radial, O2 % 100, ABG pH 6.86 L*, ABG pCO2 100.9 H, ABG pO2 104.5 H, ABG HCO3 17.8 L, ABG Total CO2 20.9 L, ABG O2 Saturation 93, ABG Base Excess -15.7 L, [place] Test Patient unable, Vent Rate 20, Tidal Volume 420, PEEP 18 07/13/21 13:33: Specimen Source Left radial, O2 % 100, ABG pH 7.07 L*, ABG pCO2 74.0 H, ABG pO2 105.2 H, ABG HCO3 20.9 L, ABG Total CO2 23.2, ABG O2 Saturation 96, ABG Base Excess -9.3 L, [place] Test N/a, Vent Rate 26, Tidal Volume 480, PEEP 18 07/13/21 15:09: Specimen Source Right brachial, O2 % 100, ABG pH 7.13 L*, ABG pCO2 67.1 H, ABG pO2 126.0 H, ABG HCO3 21.8 L, ABG Total CO2 23.8, ABG O2 Saturation 97, ABG Base Excess -8.2 L, [place] Test N/a, Vent Rate 28, Tidal Volume 480, PEEP 20 07/13/21 17:46: POC Glucose 406 H* 07/13/21 19:21: Specimen Source R/b, O2 % 100, ABG pH 7.10 L*, ABG pCO2 75.1 H, ABG pO2 238.6 H, ABG HCO3 22.8, ABG Total CO2 25.1, ABG O2 Saturation 99, ABG Base Excess -6.8 L, Vent Rate 28, Tidal Volume 480, PEEP 20 07/13/21 19:42: POC Glucose 363 H* 07/13/21 21:54: POC Glucose 283 H 07/13/21 23:15: POC Glucose 296 H 07/13/21 23:54: POC Glucose 276 H 07/14/21 00:57: POC Glucose 263 H 07/14/21 01:50: POC Glucose 272 H 07/14/21 03:00: POC Glucose 240 H 07/14/21 03:56: POC Glucose 214 H 07/14/21 04:57: POC Glucose 220 H 07/14/21 05:47: POC Glucose 205 H 07/14/21 05:50: Magnesium 2.8 H D 07/14/21 05:50: WBC 22.4 H* D, RBC 3.74 L, Hgb 11.1 L D, Hct 36.0 L, MCV 96.
[2021-07-14 08:13] LABS: POC Glucose,Bedside 181 (70-110)
[2021-07-14 08:15] LABS: Troponin I 0.69 ng/ml (0.00-0.034)
--- NOTE | 2021-07-14 08:17 | PC.NURSE ---
received call from lab ([facility]) reporting Troponin 0.69. Name and verified. Dr. Herring updated.
--- NOTE | 2021-07-14 09:30 | PC.NURSE ---
pt supine at this time until aprox 1630.
[2021-07-14 10:33] LABS: POC Glucose,Bedside 132 (70-110)
[2021-07-14 10:43] LABS: ABG Base Excess -10.3 mmol/L (-2.4-2.3); ABG Oxygen Saturation 99 % (90-100); ABG PO2 403.4 mmhg (80-100); ABG TCO2 22.2 mmhg (23-27)
[2021-07-14 10:46] LABS: Oxygen 100 %; PEEP 22; Tidal Volume 480; Vent Rate 28
[2021-07-14 10:47] LABS: Source Right Brachial
[2021-07-14 10:48] LABS: ABG PCO2 72.4 mmhg (35.0-45.0); ABG PH 7.06 mmol/L (7.35-7.45)
--- NOTE | 2021-07-14 10:50 | PC.NURSE ---
notified Dr. Herring of the following critical ABG results: pH 7.06 and CO2 72.4
--- NOTE | 2021-07-14 11:09 | CA_ITS ---
APPROVED REPORT EXAM: Comprehensive 2D, Doppler, and color-flow Echocardiogram [employer] Cutter: Megan Samayoa RVT Ht: 5 ft 8 in Wt: 262lbs BSA: 2.29 BP: 107/60 mmHg Indications: COVID PNEUMONIA,PT INTUBATED, ABN EKG, DM,HTN,HLD,OBESTIY,CAD,JAYLIN TDS-PT FLAT ON BACK INTUBATED,OBESITY 2D Dimensions LVOT 2.82 cm (M/F) 1.5-2.5 M-Mode Dimensions RVDd 2.62 cm (0.9-2.6) LA Diam 4.04 cm (1.9-4.0) LVDd 3.48 cm (3.5-5.7) Ao Diam 3.28 cm (2.0-3.7) LVDs 2.41 cm (3.5-5.7) IVSd 1.23 cm (0.6-1.1) PWd 0.80 cm (0.6-1.1) EF (Teich) 59.40% FS 30.70% EDV (Teich) 50.20 mL TAPSE 2.15 (<1.7) ESV (Teich) 20.40 mL LV Diastology E Decel Time 290.00 (160-240 msec) E/A Ratio 1.3 MED E' 4.30 (< 7 cm/sec) E'/MED E' Ratio 15.63 (>14) LAT E' 8.00 (<10 cm/sec) E/LAT E' Ratio 8.40 (>14) Aortic Valve AO Peak GR. 6.20 mmHg Mitral Valve MV E Max Javier. 67.00 (40-130 cm/s) MV A Velocity 52.00 (40-130 cm/s) E/A Ratio 1.28 MV Decel. Time 290.00 (160-240 ms) MV PHT 85.00 ms Pulmonary Valve PV Peak Velocity 44.00 (50-150 cm/s) Tricuspid Valve TR P. Velocity 251.00 cm/s RAP Estimate 10.00 mmHg RVSP 35.20 mmHg Left Ventricle Left atrium is mildly enlarged, left ventricle is normal size, mild concentric left ventricular hypertrophy, visually estimated ejection fraction 55% with no regional wall motion abnormality. Diastolic parameters are inconclusive. Right Ventricle Right atrium and right ventricle mildly enlarged with normal contractility. Aortic Valve Aortic valve is minimally thickened and fibrosed, there is no aortic stenosis or aortic insufficiency. Mitral Valve Mitral valve grossly normal, there is trace mitral regurgitation. Tricuspid Valve Tricuspid grossly normal, there is trace tricuspid regurgitation, calculated right ventricular systolic pressure 35 mmHg. Pulmonic Valve Pulmonic valve is poorly visualized. Great Vessels Aortic root is normal size. Inferior vena cava is mildly dilated without significant inspiratory collapse. Pericardium No significant pericardial effusion noted. Conclusion 1. Mild biatrial enlargement, normal left ventricular size, mild concentric ventricular hypertrophy, visually estimated ejection fraction 55% with no regional wall motion abnormality, there is abnormal septal motion, diastolic parameters are inconclusive. 2. Mildly enlarged right ventricle with normal contractility. 3. Trace mitral and tricuspid regurgitation, calculated right ventricular systolic pressure 35 mmHg. 4. No significant pericardial effusion noted. 5. Inferior vena cava is mildly dilated without significant inspiratory collapse. Electronically signed by : Hemal Walters MD 07/15/2021 15:02:53
--- NOTE | 2021-07-14 11:40 | HMH.PHACONS ---
- Pharmacy Consult Date: 07/14/21 Time: 11:40 Referring provider: DR. JIMENES Reason for Consult:: DOSING CHANGE ON VANCOMYCIN DUE TO RENAL FUNCTION Allergies and ADEs:: Allergies Allergy/AdvReac Type Severity Reaction Status Date / Time No Known Allergies Allergy Verified 07/09/21 15:43 Home Medications:: Home Medications Medication Instructions Recorded Confirmed Type Aspirin [Aspirin 81mg EC Tab] 81 mg PO DAILY 11/10/17 07/10/21 History Metformin HCl [Glucophage 500mg 1,000 mg PO BIDWMEAL 11/10/17 07/10/21 History Tablet] glimepiride 1 mg tablet 1 mg PO BIDWMEAL tab 10/02/18 07/10/21 History allopurinol 300 mg tablet 300 mg PO DAILY 03/09/20 07/10/21 History Ondansetron [Zofran 4mg ODT] 4 mg PO BIDP PRN #10 tab 07/07/21 07/09/21 Rx Atorvastatin Calcium [Lipitor 40mg 40 mg PO DAILY 07/09/21 07/10/21 History Tab] Lisinopril/Hydrochlorothiazide 1 tab PO DAILY 07/09/21 07/10/21 History [Lisinopril-Hctz 20-25 mg Tab*] dexAMETHasone [Dexamethasone] 4 mg PO BID 07/09/21 07/10/21 History Clopidogrel Bisulfate [Plavix] 75 mg PO DAILY 07/10/21 07/10/21 History Levothyroxine Sodium 137 mcg PO DAILY 07/10/21 07/10/21 History [Levothyroxine 137mcg (0.137mg) Tab] Sertraline HCl [Zoloft] 100 mg PO DAILY 07/10/21 07/10/21 History dilTIAZem HCl [Diltiazem 240mg 240 mg PO DAILY 07/10/21 07/10/21 History 24Hr ER Cap] Height: 1.73 m Weight: 118.841 kg Laboratory Results:: Laboratory Results - last 24 hr 07/13/21 09:15: Phosphorus 10.0 H, Magnesium 2.4 H 07/13/21 13:33: Specimen Source Left radial, O2 % 100, ABG pH 7.07 L*, ABG pCO2 74.0 H, ABG pO2 105.2 H, ABG HCO3 20.9 L, ABG Total CO2 23.2, ABG O2 Saturation 96, ABG Base Excess -9.3 L, [place] Test N/a, Vent Rate 26, Tidal Volume 480, PEEP 18 07/13/21 15:09: Specimen Source Right brachial, O2 % 100, ABG pH 7.13 L*, ABG pCO2 67.1 H, ABG pO2 126.0 H, ABG HCO3 21.8 L, ABG Total CO2 23.8, ABG O2 Saturation 97, ABG Base Excess -8.2 L, [place] Test N/a, Vent Rate 28, Tidal Volume 480, PEEP 20 07/13/21 17:46: POC Glucose 406 H* 07/13/21 19:21: Specimen Source R/b, O2 % 100, ABG pH 7.10 L*, ABG pCO2 75.1 H, ABG pO2 238.6 H, ABG HCO3 22.8, ABG Total CO2 25.1, ABG O2 Saturation 99, ABG Base Excess -6.8 L, Vent Rate 28, Tidal Volume 480, PEEP 20 07/13/21 19:42: POC Glucose 363 H* 07/13/21 21:54: POC Glucose 283 H 07/13/21 23:15: POC Glucose 296 H 07/13/21 23:54: POC Glucose 276 H 07/14/21 00:57: POC Glucose 263 H 07/14/21 01:50: POC Glucose 272 H 07/14/21 03:00: POC Glucose 240 H 07/14/21 03:56: POC Glucose 214 H 07/14/21 04:57: POC Glucose 220 H 07/14/21 05:47: POC Glucose 205 H 07/14/21 05:50: Magnesium 2.8 H D 07/14/21 05:50: WBC 22.4 H* D, RBC 3.74 L, Hgb 11.1 L D, Hct 36.0 L, MCV 96.4 H, MCH 29.8, MCHC 30.9 L, RDW 13.3, Plt Count 386 D, MPV 8.7, Neut % (Auto) 93.5 H, Lymph % (Auto) 2.1 L, [place] % (Auto) 3.3, Eos % (Auto) 0.0 L, Baso % (Auto) 1.1, Neut # (Auto) 20.9 H, Lymph # (Auto) 0.5 L, [place] # (Auto) 0.7, Eos # (Auto) 0.0, Baso # (Auto) 0.3 H, Total Counted 100, Neutrophils % (Manual) 91 H, Lymphocytes % (Manual) 3 L, Monocytes % (Manual) 4, Basophils % (Manual) 2.0 H, Platelet Estimate Normal, RBC Morphology Not Reportable, Hypochromasia 1+ 07/14/21 05:50: Sodium 135 L, Potassium 7.9 H* D, Chloride 101, Carbon Dioxide 23, Anion Gap 18.9 H, BUN 59 H D, Creatinine 3.80 H D, Estimated Creat Clear 35, Estimated GFR 17 L*, Est GFR ( Amer) 20 L D, Glucose 209 H D, Calcium 7.5 L, Total Bilirubin 0.3, AST 52 D, ALT 38 D, Alkaline Phosphatase 118, Total Protein 6.2 L, Albumin 2.7 L D, Globulin 3.5 H, Albumin/Globulin Ratio 0.8 L 07/14/21 05:50: Troponin I 0.69 H 07/14/21 06:00: Specimen Source Right brachial, O2 % 100, ABG pH 7.06 L*, ABG pCO2 72.4 H, ABG pO2 403.4 H, ABG HCO3 20.0 L, ABG Total CO2 22.2 L, ABG O2 Saturation 99, ABG Base Excess -10.3 L, [place] Test N/p, Vent Rate 28, Tidal Volume 480, PEEP 22 07/14/21 08:03: POC Glucose 181 H 07/14/21 10:26: POC Glucose
--- NOTE | 2021-07-14 12:01 | HMH.PULMPN ---
Internal Medicine - PN: Subj *Date: 07/14/21 *Time: 12:01 Interval history: No acute respiratory events overnight. Patient continues to be on high ventilator settings. Exam - Constitutional Constitutional:: Present: comfortable - HENMT Exam HENMT: Present: normocephalic, atraumatic - Eye Exam Eyes:: Present: normal appearance both eyes and related structures - Neck Exam Neck:: Present: normal visual inspection - Respiratory Exam Respiratory:: Present: decreased breath sounds - Cardiovascular Exam Cardiac:: Present: S1, S2 - GI Exam GI:: Present: soft - Skin Exam Skin: Present: warm, no rash - Neurological Exam Intubated and sedated - Extremities Exam Extremities: Present: no cyanosis, no clubbing Assessment and Plan (1) Acute respiratory distress syndrome (ARDS) due to COVID-19 virus Status: Acute Category: Medical Code(s): U07.1 - COVID-19; J80 - Acute respiratory distress syndrome (2) Acute respiratory failure with hypoxia Status: Acute Category: Medical Code(s): J96.01 - Acute respiratory failure with hypoxia (3) Pneumonia due to COVID-19 virus Status: Acute Category: Medical Code(s): U07.1 - COVID-19; J12.82 - Pneumonia due to coronavirus disease 2019 (4) CAD (coronary artery disease) Status: Chronic Qualifiers: Category: Medical Code(s): I25.10 - Atherosclerotic heart disease of [place] coronary artery without angina pectoris (5) Diabetes Status: Chronic Qualifiers: Category: Medical Code(s): E11.9 - Type 2 diabetes mellitus without complications (6) HLD (hyperlipidemia) Status: Chronic Qualifiers: Category: Medical Code(s): E78.5 - Hyperlipidemia, unspecified (7) HTN (hypertension) Status: Chronic Category: Medical Code(s): I10 - Essential (primary) hypertension (8) JAYLIN (obstructive sleep apnea) Status: Chronic Category: Medical Code(s): G47.33 - Obstructive sleep apnea (adult) (pediatric) (9) Hypothyroid Status: Chronic Qualifiers: Hypothyroidism type: acquired Qualified Code(s): E03.9 - Hypothyroidism, unspecified Category: Medical Code(s): E03.9 - Hypothyroidism, unspecified (10) Anxiety Status: Chronic Category: Medical Code(s): F41.9 - Anxiety disorder, unspecified (11) Class 2 obesity Status: Chronic Category: Medical Code(s): E66.9 - Obesity, unspecified - Assessment and plan all Dx Assessment and Plan for all problems:: #COVID-19 pneumonia: #Acute hypoxic respiratory failure: 56-year-old with worsening respiratory failure and COVID-19 positive. Blood culture on 1 bottle admission grew staph saprophyticus. CT showed bilateral diffuse groundglass opacities. Patient states that patient has been receiving levofloxacin along with dexamethasone for COVID-19 pneumonia, however his respiratory status rapidly declined needing intubation and mechanical ventilatory support on 07/13/2021. Patient was also initiated on proning protocol that did improve his oxygenation however his complaints continue to be poor with continued hypercarbic respiratory failure. ABG this morning showed significantly improved oxygen however showed continued hypercarbic respiratory failure with metabolic acidosis. No organism seen on tracheal aspirate. Awaiting repeat blood cultures. Plan: -Continue mechanical ventilatory support currently PEEP of 22 tidal volume of 520 and a rate of 28. We will wean FiO2 to 70% -Continue vasopressor support to maintain a map goal of greater than 65 - Continue AnalgoSedation with Propofol and Fentanyl with CPOT gal less than or euqal to 2 and RASS goal of 0 to 1 (Deep sedation) - VAP bundle Elevate head of the bed at 30 to 45 degrees Oral care with chlorhexidne GI ulcer prophylaxis - Famotidine 20mg IV BID Chemical DVT prophylaxis -DuoNebs every hour scheduled x 4 and and then every 4 scheduled -We will continue dexamethasone 6mg daily and Barcitinib. Remdesivir wa
[2021-07-14 12:22] LABS: POC Glucose,Bedside 197 (70-110)
[2021-07-14 13:51] LABS: Chloride 106 mmol/L (98-107); Sodium 135 mmol/L (136-145)
[2021-07-14 13:54] LABS: Anion Gap 21.3 mEq/L (5-15); Blood Urea Nitrogen 67 mg/dl (9-20); Calcium 7.9 mg/dl (8.4-10.2); Carbon Dioxide 17 mmol/L (22.0-30.0); Creatinine Clearance Estimated 30 mL/min (50-200); Estimated Glomerular Filt Rate 13 ml/min (>60); GFR (African American) 16 ML/MIN (>60); Glucose 232 mg/dl (74-100)
[2021-07-14 14:00] LABS: Potassium 9.3 mmoL/L (3.5-5.1)
--- NOTE | 2021-07-14 14:16 | PC.NURSE ---
received call from lab (Anton[facility]) with critical results: K 9.3 and Cr 4.60. Name and verified. Contacted Dr. Herring, who ordered the followin amps Ca Gluconate, 10 units Insulin IV, 1 amp D50, increase Insulin gtt to 10units/hr, Lactulose 60 via OG, and Lasix 200mg IV. Dr. Herring to call and discuss POC.
--- NOTE | 2021-07-14 14:47 | PC.NURSE ---
BP 119/61. Levo gtt decreased to 15mcg/min
[2021-07-14 15:04] LABS: ABG Base Excess -12.5 mmol/L (-2.4-2.3); ABG HCO3 17.3 mmhg (22.0-26.0); ABG Oxygen Saturation 99 % (90-100); ABG PO2 223.1 mmhg (80-100); ABG TCO2 19.2 mmhg (23-27)
[2021-07-14 15:07] LABS: Allen's Test Patient Unable; Oxygen 70% %; PEEP 24; Source Right Brachial; Tidal Volume 550; Vent Rate 28
[2021-07-14 15:08] LABS: ABG PCO2 58.9 mmhg (35.0-45.0); ABG PH 7.09 mmol/L (7.35-7.45)
--- NOTE | 2021-07-14 15:11 | PC.NURSE ---
@ BS. Notified Dr. Herring of the following critical ABG results: pH 7.09 and CO2 58.9.
--- NOTE | 2021-07-14 15:29 | PC.NURSE ---
reviewed POC with Dr. Lizarraga who gives strict order for pt NOT to over breathe the vent and to increase Propofol gtt to 100mcg/kg/min and increase Fentanyl gtt to 75mcg/hr. Order verified. Dr. Lizarraga also ordered vent changes that were relayed to RTs (Ameya Hector and Aron Mcclain).
--- NOTE | 2021-07-14 15:33 | PC.NURSE ---
Dr. Lizarraga called back and wants to scan the bladder. Called warehouse man (Elizabeth) to obtain bladder scanner.
[2021-07-14 15:40] LABS: ABG PCO2 93.3 mmhg (35.0-45.0); ABG PH 7.05 mmol/L (7.35-7.45); ABG PO2 53.7 mmhg (80-100); ABG TCO2 27.9 mmhg (23-27)
[2021-07-14 15:41] LABS: ABG Base Excess -7.2 mmol/L (-2.4-2.3); ABG Oxygen Saturation 80 % (90-100)
[2021-07-14 15:42] LABS: Oxygen 100 %; PEEP 20; Source R RADIAL; Tidal Volume 480; Vent Rate 28
--- NOTE | 2021-07-14 15:42 | PC.NURSE ---
0mL in bladder via bladder scanner. Dr. Lizarraga updated. Dr. Herring @ updating on POC and prognosis.
--- NOTE | 2021-07-14 16:30 | PC.NURSE ---
insulin gtt increased to 15units/hr per Dr. Lizarraga. Daron Hauser took verbal orders over the phone.
--- NOTE | 2021-07-14 16:32 | PC.NURSE ---
Received call from Dr Lizarraga at 1621. just advising that he entered in new orders for the pt: pt is to have oral and rectal kayexalate insulin drip is to be increased to 15units pt has orders for D50 q1h prn hypoglycemia primary RN notified at this time as well.
--- NOTE | 2021-07-14 16:52 | PC.NURSE ---
BP 135/75. Levo gtt decreased to 10mcg/min
[2021-07-14 17:26] LABS: Chloride, Arterial 103 mmol/L (98-107); Sodium Arterial 131 mmol/L (137-145)
[2021-07-14 17:27] LABS: ABG Base Excess -11.7 mmol/L (-2.4-2.3); ABG HCO3 16.9 mmhg (22.0-26.0); ABG Oxygen Saturation 99 % (90-100); ABG PCO2 47.9 mmhg (35.0-45.0); ABG PO2 190.7 mmhg (80-100); ABG TCO2 18.4 mmhg (23-27)
[2021-07-14 17:31] LABS: Allen's Test Non Applicable; Oxygen 70 %; PEEP 20; Tidal Volume 550; Vent Rate 28
[2021-07-14 17:32] LABS: Source Left Brachial
[2021-07-14 17:33] LABS: ABG PH 7.17 mmol/L (7.35-7.45)
[2021-07-14 17:34] LABS: Calcium, Arterial 4.5 mg/dL (8.5-10.1); Lactate Arterial 2.2 mmol/L (0.4-2.0)
--- NOTE | 2021-07-14 17:55 | PC.NURSE ---
Dr. Herring @ . He ordered a BMP @ [employer]. Order entered. Received call from RT (Donna) with critical ABG results: pH 7.16, CO2 47.9, pO2 190.7, HCO3 16.9, and O2 sat 98%. Dr. Herring still in COVID unit and has been updated on results.
[2021-07-14 19:38] LABS: POC Glucose,Bedside 232 (70-110)
[2021-07-14 19:38] LABS: POC Glucose,Bedside 232 (70-110)
[2021-07-14 19:38] LABS: POC Glucose,Bedside 219 (70-110)
[2021-07-14 20:03] LABS: POC Glucose,Bedside 159 (70-110)
[2021-07-14 20:29] LABS: Chloride 105 mmol/L (98-107); Sodium 134 mmol/L (136-145)
[2021-07-14 20:32] LABS: Anion Gap 18.4 mEq/L (5-15); Blood Urea Nitrogen 63 mg/dl (9-20); Calcium 7.5 mg/dl (8.4-10.2); Carbon Dioxide 17 mmol/L (22.0-30.0); Creatinine Clearance Estimated 26 mL/min (50-200); Estimated Glomerular Filt Rate 11 ml/min (>60); GFR (African American) 13 ML/MIN (>60); Glucose 244 mg/dl (74-100)
[2021-07-14 20:34] LABS: Potassium 6.4 mmoL/L (3.5-5.1)
[2021-07-14 21:15] LABS: POC Glucose,Bedside 195 (70-110)
[2021-07-15] VITALS (35 sets, daily range): BP systolic 76–152; BP diastolic 38–82; PULSE 60–86; RESP 26–35; TEMP 36.2–36.9; O2SAT 95–100
[2021-07-15 01:14] LABS: Chloride 104 mmol/L (98-107)
[2021-07-15 01:15] LABS: Sodium 135 mmol/L (136-145)
[2021-07-15 01:17] LABS: Blood Urea Nitrogen 67 mg/dl (9-20); Creatinine Clearance Estimated 24 mL/min (50-200); Estimated Glomerular Filt Rate 10 ml/min (>60); GFR (African American) 12 ML/MIN (>60)
[2021-07-15 01:18] LABS: Anion Gap 20.1 mEq/L (5-15); Calcium 7.9 mg/dl (8.4-10.2); Carbon Dioxide 17 mmol/L (22.0-30.0); Glucose 207 mg/dl (74-100)
[2021-07-15 01:28] LABS: Potassium 6.1 mmoL/L (3.5-5.1)
--- NOTE | 2021-07-15 01:47 | PC.NURSE ---
dr. lee notitifed of critical lab values. no new orders received.
--- NOTE | 2021-07-15 02:10 | PC.NURSE ---
shift summary. critical lab values called from lab at 2034 dr. lee notified of critical lab values, new orders received and carried out. at bedside. insulin drip continues to infuse at 15 units/hr. order to give 1 amp d 50 for fsbs below 200. kayexalte given per ogt. carlson in place with no urine output. propofol remains at 100mcq, fentanyl at 75mcq. levo at 10mcq, vaso remains at 0.04. 2100 levophed increased to 12 mcq for ,ap less than 65. 0100 blood pressure dropped to 70s after turning patient to clean up incontinent bowel movement. levophed increased to 15 mcq. 0230 bp sustaining 1 teens to 120s, levophed decreased back down to 12 mcq. family remained at bedside until approximately 2229, questions and concerns addressed.
[2021-07-15 05:53] LABS: POC Glucose,Bedside 215 (70-110)
[2021-07-15 05:53] LABS: POC Glucose,Bedside 199 (70-110)
[2021-07-15 05:53] LABS: POC Glucose,Bedside 179 (70-110)
[2021-07-15 05:53] LABS: POC Glucose,Bedside 174 (70-110)
[2021-07-15 06:15] LABS: Basophils % 0.1 % (0.1-2.0); Eosinophils % 0.1 % (0.1-12.0); Hematocrit 32.1 % (42.0-52.0); Lymphocytes # 0.4 K/mm3 (0.7-4.5); Lymphocytes % 2.3 % (10-50); Mean Corpuscular HGB Conc 30.9 g/dL (31.8-35.4); Mean Corpuscular Hemoglobin 29.8 pg (27.0-31.2); Mean Corpuscular Volume 96.4 fl (80-94); Monocytes # 0.6 K/mm3 (0.1-1.0); Monocytes % 3.2 % (1.7-9.3); Neutrophils # 18.2 K/mm3 (1.8-7.8); Neutrophils % 94.3 % (37.0-80.0); Platelet Count 319 K/mm3 (142-424); Red Blood Count 3.33 M/mm3 (4.60-6.20); Red Cell Distribution Width 13.6 % (11.5-17.5); White Blood Count 19.2 K/mm3 (4.8-10.8)
[2021-07-15 06:16] LABS: Alanine Aminotransferase 42 U/L (12-78); Albumin Level 2.4 g/dl (3.5-5.0); Albumin/Globulin Ratio 0.8 (1.1-1.8); Alkaline Phosphatase 91 U/L (38-126); Anion Gap 18.9 mEq/L (5-15); Aspartate Amino Transferase 67 U/L (17-59); Bilirubin,Total 0.3 mg/dl (0.2-1.3); Blood Urea Nitrogen 66 mg/dl (9-20); Calcium 7.8 mg/dl (8.4-10.2); Carbon Dioxide 16 mmol/L (22.0-30.0); Chloride 104 mmol/L (98-107); Creatinine Clearance Estimated 22 mL/min (50-200); Estimated Glomerular Filt Rate 9 ml/min (>60); GFR (African American) 11 ML/MIN (>60); Globulin 3.1 g/dL (1.3-3.2); Glucose 195 mg/dl (74-100); Potassium 5.9 mmoL/L (3.5-5.1); Sodium 133 mmol/L (136-145); Total Protein,Serum 5.5 g/dl (6.3-8.2)
[2021-07-15 06:18] LABS: MANUAL DIFFERENTIAL MANUAL DIFFERENTIAL (MANUAL DIFF)
--- NOTE | 2021-07-15 06:40 | PC.NURSE ---
received call from haley in lab regarding critical lab value, dr. lee paged and notified. no new orders received
[2021-07-15 06:43] LABS: Hypochromasia 2+; Lymphocytes % 4 % (10-50); Macrocytosis 1+; Monocytes % 3 % (2-9); Neutrophils % 93 % (42-76); Platelet Estimate Normal; Total Cells Counted 100
--- NOTE | 2021-07-15 07:48 | HMH.ACPN2 ---
Internal Medicine - PN: Subj *Date: 07/15/21 *Time: 07:48 Interval history: 56-year-old white male remains intubated and sedated in the intensive care unit. Unfortunately has had no urine output over the past 48 hours. Please see notes below about his electrolyte issues. Exam Vital signs and Labs for Last 24 Hours: Temp Pulse Resp BP Pulse Ox 97.5 F L 70 35 H 128/66 98 07/15/21 07:00 07/15/21 07:00 07/15/21 07:00 07/15/21 07:00 07/15/21 07:00 Laboratory Results - last 24 hr 07/13/21 18:38: Specimen Source R radial, O2 % 100, ABG pH 7.05 L*, ABG pCO2 93.3 H, ABG pO2 53.7 L, ABG HCO3 25.0, ABG Total CO2 27.9 H, ABG O2 Saturation 80 L*, ABG Base Excess -7.2 L, Vent Rate 28, Tidal Volume 480, PEEP 20 07/14/21 05:50: Troponin I 0.69 H 07/14/21 06:00: Specimen Source Right brachial, O2 % 100, ABG pH 7.06 L*, ABG pCO2 72.4 H, ABG pO2 403.4 H, ABG HCO3 20.0 L, ABG Total CO2 22.2 L, ABG O2 Saturation 99, ABG Base Excess -10.3 L, [place] Test N/p, Vent Rate 28, Tidal Volume 480, PEEP 22 07/14/21 08:03: POC Glucose 181 H 07/14/21 10:26: POC Glucose 132 H 07/14/21 12:14: POC Glucose 197 H 07/14/21 13:24: Sodium 135 L, Potassium 9.3 H*, Chloride 106, Carbon Dioxide 17 L, Anion Gap 21.3 H, BUN 67 H, Creatinine 4.60 H D, Estimated Creat Clear 30, Estimated GFR 13 L*, Est GFR ( Amer) 16 L*, Glucose 232 H, Calcium 7.9 L 07/14/21 14:18: POC Glucose 232 H 07/14/21 15:00: Specimen Source Right brachial, O2 % 70%, ABG pH 7.09 L*, ABG pCO2 58.9 H, ABG pO2 223.1 H, ABG HCO3 17.3 L, ABG Total CO2 19.2 L, ABG O2 Saturation 99, ABG Base Excess -12.5 L, [place] Test Patient unable, Vent Rate 28, Tidal Volume 550, PEEP 24 07/14/21 17:00: POC Glucose 232 H 07/14/21 17:01: Specimen Source Left brachial, O2 % 70, ABG pH 7.17 L*, ABG pCO2 47.9 H, ABG pO2 190.7 H, ABG HCO3 16.9 L, ABG Total CO2 18.4 L, ABG O2 Saturation 99, ABG Base Excess -11.7 L, [place] Test Non applicable, Vent Rate 28, Tidal Volume 550, PEEP 20 07/14/21 17:59: POC Glucose 219 H 07/14/21 19:55: POC Glucose 159 H 07/14/21 20:20: Sodium 134 L, Potassium 6.4 H* D, Chloride 105, Carbon Dioxide 17 L, Anion Gap 18.4 H, BUN 63 H, Creatinine 5.40 H, Estimated Creat Clear 26, Estimated GFR 11 L*, Est GFR ( Amer) 13 L*, Glucose 244 H, Calcium 7.5 L 07/14/21 21:01: POC Glucose 195 H 07/14/21 23:58: POC Glucose 199 H 07/15/21 01:00: Sodium 135 L, Potassium 6.1 H*, Chloride 104, Carbon Dioxide 17 L, Anion Gap 20.1 H, BUN 67 H, Creatinine 5.90 H, Estimated Creat Clear 24, Estimated GFR 10 L*, Est GFR ( Amer) 12 L*, Glucose 207 H, Calcium 7.9 L 07/15/21 01:53: POC Glucose 174 H 07/15/21 03:57: POC Glucose 179 H 07/15/21 05:47: POC Glucose 215 H 07/15/21 05:50: WBC 19.2 H, RBC 3.33 L, Hgb 10.0 L, Hct 32.1 L, MCV 96.4 H, MCH 29.8, MCHC 30.9 L, RDW 13.6, Plt Count 319, MPV 9.0, Neut % (Auto) 94.3 H, Lymph % (Auto) 2.3 L, [place] % (Auto) 3.2, Eos % (Auto) 0.1, Baso % (Auto) 0.1, Neut # (Auto) 18.2 H, Lymph # (Auto) 0.4 L, [place] # (Auto) 0.6, Eos # (Auto) 0.0, Baso # (Auto) 0.0, Total Counted 100, Neutrophils % (Manual) 93 H, Lymphocytes % (Manual) 4 L, Monocytes % (Manual) 3, Platelet Estimate Normal, RBC Morphology Not Reportable, Hypochromasia 2+, Macrocytosis 1+ 07/15/21 05:50: Sodium 133 L, Potassium 5.9 H, Chloride 104, Carbon Dioxide 16 L, Anion Gap 18.9 H, BUN 66 H, Creatinine 6.40 H, Estimated Creat Clear 22, Estimated GFR 9 L*, Est GFR ( Amer) 11 L*, Glucose 195 H, Calcium 7.8 L, Total Bilirubin 0.3, AST 67 H D, ALT 42, Alkaline Phosphatase 91, Total Protein 5.5 L, Albumin 2.4 L D, Globulin 3.1, Albumin/Globulin Ratio 0.8 L I & O for Last 24 hours: Intake & Output 07/12/21 07/13/21 07/14/21 07/15/21 11:59 11:59 11:59 11:59 Intake Total 4030 / 4030 588 / 588 6795.134 / 6795.134 6773.583 / 6773.583 Output Total 1750 / 1750 1383 / 1387 306 / 306 0 / 0 Balance 2280 / 2280 -795 / -799 6489.134 / 6489.134 6773.583 / 6773.583 Weight 249 lb 1.957 oz 250 lb 12.977 oz 262 lb Micro
[2021-07-15 08:12] LABS: ABG Base Excess -13.6 mmol/L (-2.4-2.3); ABG HCO3 15.6 mmhg (22.0-26.0); ABG Oxygen Saturation 99 % (90-100); ABG PCO2 48.1 mmhg (35.0-45.0); ABG PO2 257.6 mmhg (80-100); ABG TCO2 17.1 mmhg (23-27)
[2021-07-15 08:13] LABS: Allen's Test Patient Unable; Oxygen 70 %; PEEP 20; Source Right Brachial; Tidal Volume 540; Vent Rate 35
[2021-07-15 08:15] LABS: ABG PH 7.13 mmol/L (7.35-7.45)
[2021-07-15 08:27] LABS: POC Glucose,Bedside 161 (70-110)
[2021-07-15 10:21] LABS: POC Glucose,Bedside 198 (70-110)
[2021-07-15 12:12] LABS: POC Glucose,Bedside 160 (70-110)
--- NOTE | 2021-07-15 12:23 | HMH.PULMPN ---
Internal Medicine - PN: Subj *Date: 07/15/21 *Time: 12:23 Interval history: No acute respiratory events overnight. Exam - Constitutional Constitutional:: Present: comfortable - HENMT Exam HENMT: Present: normocephalic, atraumatic - Neck Exam Neck:: Present: normal visual inspection - Respiratory Exam Respiratory:: Present: respiratory distress, crackles, rhonchi - Cardiovascular Exam Cardiac:: Present: S1, S2 - GI Exam GI:: Present: soft - Skin Exam Skin: Present: warm, no rash - Neurological Exam Intubated and sedated - Extremities Exam Extremities: Present: no cyanosis, no clubbing, edema Assessment and Plan (1) Acute respiratory distress syndrome (ARDS) due to COVID-19 virus Status: Acute Category: Medical Code(s): U07.1 - COVID-19; J80 - Acute respiratory distress syndrome (2) Acute respiratory failure with hypoxia Status: Acute Category: Medical Code(s): J96.01 - Acute respiratory failure with hypoxia (3) Pneumonia due to COVID-19 virus Status: Acute Category: Medical Code(s): U07.1 - COVID-19; J12.82 - Pneumonia due to coronavirus disease 2019 (4) CAD (coronary artery disease) Status: Chronic Qualifiers: Category: Medical Code(s): I25.10 - Atherosclerotic heart disease of [place] coronary artery without angina pectoris (5) Diabetes Status: Chronic Qualifiers: Category: Medical Code(s): E11.9 - Type 2 diabetes mellitus without complications (6) HLD (hyperlipidemia) Status: Chronic Qualifiers: Category: Medical Code(s): E78.5 - Hyperlipidemia, unspecified (7) HTN (hypertension) Status: Chronic Category: Medical Code(s): I10 - Essential (primary) hypertension (8) JAYLIN (obstructive sleep apnea) Status: Chronic Category: Medical Code(s): G47.33 - Obstructive sleep apnea (adult) (pediatric) (9) Hypothyroid Status: Chronic Qualifiers: Hypothyroidism type: acquired Qualified Code(s): E03.9 - Hypothyroidism, unspecified Category: Medical Code(s): E03.9 - Hypothyroidism, unspecified (10) Anxiety Status: Chronic Category: Medical Code(s): F41.9 - Anxiety disorder, unspecified (11) Class 2 obesity Status: Chronic Category: Medical Code(s): E66.9 - Obesity, unspecified - Assessment and plan all Dx Assessment and Plan for all problems:: #COVID-19 pneumonia: #Acute hypoxic respiratory failure: 56-year-old with worsening respiratory failure and COVID-19 positive. Blood culture on 1 bottle admission grew staph saprophyticus. CT showed bilateral diffuse groundglass opacities. Patient has been receiving levofloxacin along with dexamethasone for COVID-19 pneumonia since admission, however his respiratory status rapidly declined needing intubation and mechanical ventilatory support on 07/13/2021 and pulmonary was consulted secondary to worsening hypercarbia. Patient responded significant improved his oxygenation so however patient is having very poor lung compliance with hypercarbia. Patient hospital course also complicated by MARGO and significant hyperkalemia for which I have initiated patient on Kayexalate titrate to 3-4 bowel movements per day along with increasing insulin drip. We have also been aggressively increasing patient's minute ventilation and his current minute ventilation is 19 L with a recent PCO2 at 48. Even though his PCO2 has been improving his pH remained the same concerning for worsening metabolic acidosis. Primary team has been aggressively working on transferring the patient to higher level of care where we will have CRRT / HD support Plan: -Continue mechanical ventilatory support currently PEEP of 16 tidal volume of 540 and a rate of 35. We will wean FiO2 to 60% - Continue AnalgoSedation with Propofol and Fentanyl with CPOT gal less than or euqal to 2 and RASS goal of 0 to 1 (Deep sedation) - VAP bundle Elevate head of the bed at 30 to 45 degrees Oral care with chlorhexidne
[2021-07-15 14:03] LABS: Vancomycin,Trough 12.7 ug/mL (5.0-10.0)
[2021-07-15 14:55] LABS: Chloride 104 mmol/L (98-107); Potassium 5.3 mmoL/L (3.5-5.1); Sodium 135 mmol/L (136-145)
[2021-07-15 14:58] LABS: Anion Gap 20.3 mEq/L (5-15); Blood Urea Nitrogen 67 mg/dl (9-20); Calcium 7.7 mg/dl (8.4-10.2); Carbon Dioxide 16 mmol/L (22.0-30.0); Creatinine Clearance Estimated 20 mL/min (50-200); Estimated Glomerular Filt Rate 8 ml/min (>60); GFR (African American) 10 ML/MIN (>60); Glucose 147 mg/dl (74-100)
[2021-07-15 18:45] LABS: POC Glucose,Bedside 172 (70-110)
[2021-07-15 18:45] LABS: POC Glucose,Bedside 157 (70-110)
[2021-07-15 18:45] LABS: POC Glucose,Bedside 146 (70-110)
[2021-07-15 19:38] LABS: Vancomycin,Peak 35.6 ug/ml (11-39)
[2021-07-15 20:38] LABS: POC Glucose,Bedside 126 (70-110)
[2021-07-15 21:22] LABS: Chloride 104 mmol/L (98-107); Sodium 135 mmol/L (136-145)
[2021-07-15 21:23] LABS: Potassium 5.6 mmoL/L (3.5-5.1)
[2021-07-15 21:26] LABS: Anion Gap 21.6 mEq/L (5-15); Blood Urea Nitrogen 70 mg/dl (9-20); Calcium 7.4 mg/dl (8.4-10.2); Carbon Dioxide 15 mmol/L (22.0-30.0); Creatinine Clearance Estimated 19 mL/min (50-200); Estimated Glomerular Filt Rate 8 ml/min (>60); GFR (African American) 10 ML/MIN (>60); Glucose 185 mg/dl (74-100)
--- NOTE | 2021-07-15 21:31 | PC.NURSE ---
called at this time with no bed availability.
[2021-07-15 22:54] LABS: POC Glucose,Bedside 134 (70-110)
[2021-07-16] VITALS (37 sets, daily range): BP systolic 85–142; BP diastolic 45–74; PULSE 60–86; RESP 25–33; TEMP 36.4–36.7; O2SAT 91–100; BMI 39.8
[2021-07-16 00:08] LABS: POC Glucose,Bedside 154 (70-110)
[2021-07-16 01:55] LABS: POC Glucose,Bedside 154 (70-110)
[2021-07-16 04:27] LABS: POC Glucose,Bedside 168 (70-110)
[2021-07-16 06:04] LABS: Basophils # 0.2 K/mm3 (0-0.2); Basophils % 0.8 % (0.1-2.0); Eosinophils % 0.1 % (0.1-12.0); Hematocrit 31.5 % (42.0-52.0); Hemoglobin 9.6 g/dL (14.1-18.0); Lymphocytes # 0.2 K/mm3 (0.7-4.5); Mean Corpuscular HGB Conc 30.4 g/dL (31.8-35.4); Mean Corpuscular Hemoglobin 29.3 pg (27.0-31.2); Mean Corpuscular Volume 96.5 fl (80-94); Mean Platelet Volume 8.3 fl (7.4-10.4); Monocytes # 0.7 K/mm3 (0.1-1.0); Monocytes % 3.3 % (1.7-9.3); Neutrophils # 21.1 K/mm3 (1.8-7.8); Neutrophils % 94.8 % (37.0-80.0); Platelet Count 334 K/mm3 (142-424); Red Blood Count 3.26 M/mm3 (4.60-6.20); Red Cell Distribution Width 13.7 % (11.5-17.5); White Blood Count 22.3 K/mm3 (4.8-10.8)
[2021-07-16 06:08] LABS: MANUAL DIFFERENTIAL MANUAL DIFFERENTIAL (MANUAL DIFF)
[2021-07-16 06:13] LABS: POC Glucose,Bedside 178 (70-110)
[2021-07-16 06:37] LABS: Lymphocytes % 7 % (10-50); Monocytes % 4 % (2-9); Neutrophils % 86 % (42-76); Platelet Estimate Normal; RBC Morphology Normal; Total Cells Counted 100
[2021-07-16 06:41] LABS: Alanine Aminotransferase 37 U/L (12-78); Albumin Level 2.5 g/dl (3.5-5.0); Albumin/Globulin Ratio 0.8 (1.1-1.8); Alkaline Phosphatase 98 U/L (38-126); Anion Gap 23.3 mEq/L (5-15); Aspartate Amino Transferase 77 U/L (17-59); Bilirubin,Total 0.2 mg/dl (0.2-1.3); Blood Urea Nitrogen 68 mg/dl (9-20); Calcium 7.3 mg/dl (8.4-10.2); Carbon Dioxide 15 mmol/L (22.0-30.0); Chloride 102 mmol/L (98-107); Creatinine Clearance Estimated 18 mL/min (50-200); Estimated Glomerular Filt Rate 7 ml/min (>60); GFR (African American) 9 ML/MIN (>60); Globulin 3.1 g/dL (1.3-3.2); Glucose 156 mg/dl (74-100); Potassium 5.3 mmoL/L (3.5-5.1); Sodium 135 mmol/L (136-145); Total Protein,Serum 5.6 g/dl (6.3-8.2)
--- NOTE | 2021-07-16 07:08 | HMH.ACPN2 ---
Internal Medicine - PN: Subj *Date: 07/16/21 *Time: 18:42 Interval history: Patient currently sedated and on ventilator. Supine on exam this morning. Hemodynamic stable but still requiring 2 pressors. Continues to be oliguric, reviewed labs from this morning, creatinine continues to worsen. Exam Vital signs and Labs for Last 24 Hours: Temp Pulse Resp BP Pulse Ox 97.6 F 80 32 H 99/55 L 98 07/16/21 05:00 07/16/21 06:19 07/16/21 06:27 07/16/21 06:19 07/16/21 06:27 Laboratory Results - last 24 hr 07/15/21 06:00: Specimen Source Right brachial, O2 % 70, ABG pH 7.13 L*, ABG pCO2 48.1 H, ABG pO2 257.6 H, ABG HCO3 15.6 L, ABG Total CO2 17.1 L, ABG O2 Saturation 99, ABG Base Excess -13.6 L, [place] Test Patient unable, Vent Rate 35, Tidal Volume 540, PEEP 20 07/15/21 08:09: POC Glucose 161 H 07/15/21 10:12: POC Glucose 198 H 07/15/21 12:01: POC Glucose 160 H 07/15/21 12:40: Vancomycin Trough 12.7 H 07/15/21 14:08: POC Glucose 157 H 07/15/21 14:21: Sodium 135 L, Potassium 5.3 H, Chloride 104, Carbon Dioxide 16 L, Anion Gap 20.3 H, BUN 67 H, Creatinine 6.90 H, Estimated Creat Clear 20, Estimated GFR 8 L*, Est GFR ( Amer) 10 L*, Glucose 147 H D, Calcium 7.7 L 07/15/21 15:56: POC Glucose 172 H 07/15/21 17:20: Vancomycin Peak 35.6 07/15/21 18:25: POC Glucose 146 H 07/15/21 20:31: POC Glucose 126 H 07/15/21 21:08: Sodium 135 L, Potassium 5.6 H, Chloride 104, Carbon Dioxide 15 L, Anion Gap 21.6 H, BUN 70 H, Creatinine 7.20 H, Estimated Creat Clear 19, Estimated GFR 8 L*, Est GFR ( Amer) 10 L*, Glucose 185 H D, Calcium 7.4 L 07/15/21 22:45: POC Glucose 134 H 07/16/21 00:01: POC Glucose 154 H 07/16/21 01:48: POC Glucose 154 H 07/16/21 03:59: POC Glucose 168 H 07/16/21 05:30: WBC 22.3 H*, RBC 3.26 L, Hgb 9.6 L, Hct 31.5 L, MCV 96.5 H, MCH 29.3, MCHC 30.4 L, RDW 13.7, Plt Count 334, MPV 8.3, Neut % (Auto) 94.8 H, Lymph % (Auto) 1.0 L, [place] % (Auto) 3.3, Eos % (Auto) 0.1, Baso % (Auto) 0.8, Neut # (Auto) 21.1 H, Lymph # (Auto) 0.2 L, [place] # (Auto) 0.7, Eos # (Auto) 0.0, Baso # (Auto) 0.2, Total Counted 100, Neutrophils % (Manual) 86 H, Band Neutrophils % 2.0, Lymphocytes % (Manual) 7 L, Monocytes % (Manual) 4, Metamyelocytes % 1.0, Platelet Estimate Normal, RBC Morphology Normal 07/16/21 05:30: Sodium 135 L, Potassium 5.3 H, Chloride 102, Carbon Dioxide 15 L, Anion Gap 23.3 H, BUN 68 H, Creatinine 8.00 H, Estimated Creat Clear 18, Estimated GFR 7 L*, Est GFR ( Amer) 9 L*, Glucose 156 H, Calcium 7.3 L, Total Bilirubin 0.2, AST 77 H, ALT 37, Alkaline Phosphatase 98, Total Protein 5.6 L, Albumin 2.5 L, Globulin 3.1, Albumin/Globulin Ratio 0.8 L 07/16/21 06:06: POC Glucose 178 H I & O for Last 24 hours: Intake & Output 07/13/21 07/14/21 07/15/21 07/16/21 23:59 23:59 23:59 23:59 Intake Total 3528.959 / 3528.959 7373.758 / 7373.758 7455.083 / 7455.083 2536.917 / 2536.917 Output Total 797 / 797 Balance 2731.959 / 2731.959 7356.758 / 7356.758 7447.083 / 7447.083 2526.917 / 2526.917 Weight 113.766 kg 118.841 kg 119.295 kg Microbiology Reports for the Last 24 Hours: Microbiology 07/13/21 13:53 Blood Blood Culture - Preliminary NO GROWTH AFTER 48 HOURS 07/13/21 13:34 Blood Blood Culture - Preliminary NO GROWTH AFTER 48 HOURS 07/13/21 07:30 Sputum - Expectorated Sputum Gram Stain - Final 07/13/21 07:30 Sputum - Expectorated Sputum Sputum Culture - Preliminary Narrative: - Constitutional mild distress, obese, obtunded - *Routine HEENT Exam Head: Present: normocephalic Eye: Present: EOMI, PERRL ENT: Present: mucous membranes moist - *Routine Neck Exam Present: supple. Absent: lymphadenopathy - *Routine Respiratory Exam Present: patient mechanically ventilated, distant breath sounds. Absent: wheezes, crackles - *Routine Cardiovascular Exam Present: Normal S1, tachycardia. Absent: murmur - *Routine Abdominal
[2021-07-16 07:46] LABS: ABG Base Excess -17.5 mmol/L (-2.4-2.3); ABG HCO3 12.7 mmhg (22.0-26.0); ABG Oxygen Saturation 91 % (90-100); ABG PCO2 45.2 mmhg (35.0-45.0); ABG PO2 72.8 mmhg (80-100); ABG TCO2 14.1 mmhg (23-27)
[2021-07-16 07:53] LABS: Oxygen 60 %; Tidal Volume 540
[2021-07-16 07:54] LABS: Allen's Test Patient Unable; PEEP 16; Source Right Radial; Vent Rate 30
[2021-07-16 07:55] LABS: ABG PH 7.07 mmol/L (7.35-7.45)
--- NOTE | 2021-07-16 09:49 | HMH.PULMPN ---
Internal Medicine - PN: Subj *Date: 07/16/21 *Time: 13:54 Interval history: No acute respiratory events overnight. No improvement in his renal function. Exam - Constitutional Constitutional:: Present: comfortable - HENMT Exam HENMT: Present: normocephalic, atraumatic - Eye Exam Eyes:: Present: normal appearance both eyes and related structures - Neck Exam Neck:: Present: normal visual inspection - Respiratory Exam Respiratory:: Present: decreased breath sounds, crackles - Cardiovascular Exam Cardiac:: Present: S1, S2 - GI Exam GI:: Present: soft, distended - Skin Exam Skin: Present: warm - Neurological Exam Intubated and sedated - Extremities Exam Extremities: Present: no cyanosis, no clubbing, edema Assessment and Plan (1) Acute respiratory distress syndrome (ARDS) due to COVID-19 virus Status: Acute Category: Medical Code(s): U07.1 - COVID-19; J80 - Acute respiratory distress syndrome (2) Acute respiratory failure with hypoxia Status: Acute Category: Medical Code(s): J96.01 - Acute respiratory failure with hypoxia (3) Pneumonia due to COVID-19 virus Status: Acute Category: Medical Code(s): U07.1 - COVID-19; J12.82 - Pneumonia due to coronavirus disease 2019 (4) CAD (coronary artery disease) Status: Chronic Qualifiers: Category: Medical Code(s): I25.10 - Atherosclerotic heart disease of [place] coronary artery without angina pectoris (5) Diabetes Status: Chronic Qualifiers: Category: Medical Code(s): E11.9 - Type 2 diabetes mellitus without complications (6) HLD (hyperlipidemia) Status: Chronic Qualifiers: Category: Medical Code(s): E78.5 - Hyperlipidemia, unspecified (7) HTN (hypertension) Status: Chronic Category: Medical Code(s): I10 - Essential (primary) hypertension (8) JAYLIN (obstructive sleep apnea) Status: Chronic Category: Medical Code(s): G47.33 - Obstructive sleep apnea (adult) (pediatric) (9) Hypothyroid Status: Chronic Qualifiers: Hypothyroidism type: acquired Qualified Code(s): E03.9 - Hypothyroidism, unspecified Category: Medical Code(s): E03.9 - Hypothyroidism, unspecified (10) Anxiety Status: Chronic Category: Medical Code(s): F41.9 - Anxiety disorder, unspecified (11) Class 2 obesity Status: Chronic Category: Medical Code(s): E66.9 - Obesity, unspecified - Assessment and plan all Dx Assessment and Plan for all problems:: #COVID-19 pneumonia: #Acute hypoxic respiratory failure: 56-year-old with worsening respiratory failure and COVID-19 positive. Blood culture on 1 bottle admission grew staph saprophyticus, repeat blood cultures negative. CT showed bilateral diffuse groundglass opacities. Patient has been receiving levofloxacin along with dexamethasone for COVID-19 pneumonia since admission, however his respiratory status rapidly declined needing intubation and mechanical ventilatory support on 07/13/2021 and pulmonary was consulted secondary to worsening hypercarbia. Patient respiratory status and lung complaints appear to be improving. However he continued to have worsening renal function worsening respiratory acidosis. Hyperkalemia relative well-controlled currently potassium at 590 however given his worsening renal function his prognosis is grave without dialysis support at this point of time. This patient's condition is critical. Even though his oxygenation and lung compliance has been improving he is noted to have oliguric MARGO with worsening electrolyte derangements and metabolic acidosis. His hyperkalemia is currently aggressively managed with Kayexalate insulin drip. However his clinical condition is tenuous and we will closely monitor on we will continue our efforts to manage his electrolyte derangements and acidemia. Plan: -Intubated and sedated. Pupils small, equal round and reactive. -Continue mechanical ventilatory support currently PEEP of 18 tidal volume of
--- NOTE | 2021-07-16 10:30 | XR_ITS ---
PROCEDURE: XR KUB CLINICAL INDICATION: vent COMPARISON: CT CT ANGIO CHEST PE PROTOCOL from 07/09/2021 CR XR CHEST PORTABLE from 07/14/2021 FINDINGS: This study is very limited technically having been performed by the portable technique with the patient on a ventilator and not able to breath hold. No obvious intestinal obstruction. Cannot evaluate for free air adequately on the supine image. There is a nasogastric tube present. The tip is not covered on the image but is likely in the body of the stomach. No acute bony findings. Small amount of contrast is present in the urinary bladder. There is a Souza catheter present. IMPRESSION: No evidence of intestinal obstruction. Very limited study. Nasogastric tube and Souza catheter in place. Dictated by: Dayton Davis MD 07/16/2021 11:07 Dayton Davis MD in [facility] 07/16/2021 11:07
[2021-07-16 10:34] LABS: POC Glucose,Bedside 121 (70-110)
--- NOTE | 2021-07-16 14:41 | XR_ITS ---
PROCEDURE: XR CHEST PORTABLE CLINICAL HISTORY: PNM COMPARISON: CT CT ANGIO CHEST PE PROTOCOL from 07/09/2021 CR XR CHEST PORTABLE from 07/13/2021 CR XR CHEST PORTABLE from 07/13/2021 CR XR CHEST PORTABLE from 07/14/2021 FINDINGS: 1450 hours Normal heart size. Endotracheal tube tip is in good position 4.6 cm above the samuel. Nasogastric tube tip is in the region of the body of stomach. Left subclavian central venous line tip is in the region the SVC. Diffuse bilateral ground-glass attenuation of the lungs consistent with bilateral Covid19 pneumonia which appears slightly worse on both sides. No evidence of pneumothorax No acute bony abnormalities. IMPRESSION: 1. Slight worsening diffuse bilateral pneumonia. 2. No change tubes and lines which are in good position Dictated by: Dayton Davis MD 07/16/2021 15:18 Dayton Davis MD in [facility] 07/16/2021 15:18
[2021-07-16 18:36] LABS: POC Glucose,Bedside 106 (70-110)
[2021-07-16 18:36] LABS: POC Glucose,Bedside 70 (70-110)
--- NOTE | 2021-07-16 19:28 | PC.NURSE ---
Remains vented and sedated. No acute changes. No UOP noted this shift, MD aware. Gastric residual noted to be > 200 mls/hr, called Scott (Dietitian) who states to restart tube feeds and continue them unless residual > 250. Tube feeds restarted @ 20 mls/hr. Family have called and were updated on current plan of care.
--- NOTE | 2021-07-16 21:39 | PC.NURSE ---
[facility] called at this time. No bed available.
[2021-07-16 21:59] LABS: POC Glucose,Bedside 131 (70-110)
[2021-07-16 21:59] LABS: POC Glucose,Bedside 154 (70-110)
[2021-07-16 23:59] LABS: POC Glucose,Bedside 136 (70-110)
[2021-07-17] VITALS (31 sets, daily range): BP systolic 78–98; BP diastolic 43–57; PULSE 80–98; RESP 17–33; TEMP 36.3–37.3; O2SAT 92–99; BMI 40.4
--- NOTE | 2021-07-17 01:41 | PC.NURSE ---
He continues to be intubated and sedated. Vent settings: AC mode TV 540 PEEP 16 Rate 30 FiO2 80% His glucose is being monitored q 2 hours. He continues to receive dextrose q 2 hours r/t glucose <200. He is receiving nepro @20. HOB elevated 30 degrees. He has generalized edema. Bilateral hands elevated.
[2021-07-17 02:25] LABS: POC Glucose,Bedside 136 (70-110)
[2021-07-17 04:39] LABS: POC Glucose,Bedside 146 (70-110)
[2021-07-17 05:45] LABS: Basophils # 0.1 K/mm3 (0-0.2); Basophils % 0.3 % (0.1-2.0); Eosinophils % 0.2 % (0.1-12.0); Hematocrit 32.6 % (42.0-52.0); Hemoglobin 9.9 g/dL (14.1-18.0); Lymphocytes # 0.7 K/mm3 (0.7-4.5); Lymphocytes % 2.6 % (10-50); Mean Corpuscular HGB Conc 30.2 g/dL (31.8-35.4); Mean Corpuscular Hemoglobin 29.3 pg (27.0-31.2); Mean Platelet Volume 7.7 fl (7.4-10.4); Monocytes # 0.8 K/mm3 (0.1-1.0); Monocytes % 3.3 % (1.7-9.3); Neutrophils # 23.1 K/mm3 (1.8-7.8); Neutrophils % 93.6 % (37.0-80.0); Platelet Count 378 K/mm3 (142-424); Red Blood Count 3.36 M/mm3 (4.60-6.20); Red Cell Distribution Width 13.2 % (11.5-17.5); White Blood Count 24.7 K/mm3 (4.8-10.8)
[2021-07-17 06:15] LABS: MANUAL DIFFERENTIAL MANUAL DIFFERENTIAL (MANUAL DIFF)
[2021-07-17 06:16] LABS: Alanine Aminotransferase 37 U/L (12-78); Albumin Level 2.5 g/dl (3.5-5.0); Albumin/Globulin Ratio 0.8 (1.1-1.8); Alkaline Phosphatase 99 U/L (38-126); Anion Gap 24.1 mEq/L (5-15); Aspartate Amino Transferase 93 U/L (17-59); Bilirubin,Total 0.3 mg/dl (0.2-1.3); Blood Urea Nitrogen 72 mg/dl (9-20); Calcium 6.8 mg/dl (8.4-10.2); Carbon Dioxide 14 mmol/L (22.0-30.0); Chloride 99 mmol/L (98-107); Creatinine Clearance Estimated 16 mL/min (50-200); Globulin 3.1 g/dL (1.3-3.2); Glucose 153 mg/dl (74-100); Sodium 131 mmol/L (136-145); Total Protein,Serum 5.6 g/dl (6.3-8.2)
[2021-07-17 06:18] LABS: Hypochromasia 2+; Lymphocytes % 4 % (10-50); Monocytes % 1 % (2-9); Neutrophils % 83 % (42-76); Platelet Estimate Normal; Total Cells Counted 100
[2021-07-17 06:31] LABS: Potassium 6.1 mmoL/L (3.5-5.1)
[2021-07-17 06:32] LABS: Estimated Glomerular Filt Rate 6 ml/min (>60); GFR (African American) 7 ML/MIN (>60)
[2021-07-17 08:22] LABS: ABG HCO3 12.4 mmhg (22.0-26.0); ABG Oxygen Saturation 95 % (90-100); ABG PO2 100.9 mmhg (80-100); ABG TCO2 14.2 mmhg (23-27)
--- NOTE | 2021-07-17 08:49 | PC.NURSE ---
Dr. Herring rounding and has contacted SO (Shanice) by phone to review POC and prognosis.
--- NOTE | 2021-07-17 09:01 | HMH.ACPN2 ---
Internal Medicine - PN: Subj *Date: 07/17/21 *Time: 09:02 Interval history: Patient remains intubated, sedated, on pressors, in the intensive care unit. Unfortunately, urine output has remained negligible and creatinine continues to climb. Potassium has been controlled with insulin drip and other measures but it has climbed somewhat today. Exam Vital signs and Labs for Last 24 Hours: Temp Pulse Resp BP Pulse Ox 97.6 F 83 30 H 90/54 L 98 07/17/21 06:00 07/17/21 06:33 07/17/21 06:33 07/17/21 06:33 07/17/21 06:33 Laboratory Results - last 24 hr 07/16/21 10:02: POC Glucose 121 H 07/16/21 15:50: POC Glucose 70 07/16/21 17:55: POC Glucose 106 07/16/21 20:00: POC Glucose 154 H 07/16/21 21:53: POC Glucose 131 H 07/16/21 23:52: POC Glucose 136 H 07/17/21 02:00: POC Glucose 136 H 07/17/21 03:56: POC Glucose 146 H 07/17/21 05:10: WBC 24.7 H*, RBC 3.36 L, Hgb 9.9 L, Hct 32.6 L, MCV 97.0 H, MCH 29.3, MCHC 30.2 L, RDW 13.2, Plt Count 378, MPV 7.7, Neut % (Auto) 93.6 H, Lymph % (Auto) 2.6 L, [place] % (Auto) 3.3, Eos % (Auto) 0.2, Baso % (Auto) 0.3, Neut # (Auto) 23.1 H, Lymph # (Auto) 0.7, [place] # (Auto) 0.8, Eos # (Auto) 0.0, Baso # (Auto) 0.1, Total Counted 100, Neutrophils % (Manual) 83 H, Band Neutrophils % 12.0 H, Lymphocytes % (Manual) 4 L, Monocytes % (Manual) 1 L, Platelet Estimate Normal, Hypochromasia 2+ 07/17/21 05:10: Sodium 131 L, Potassium 6.1 H*, Chloride 99, Carbon Dioxide 14 L, Anion Gap 24.1 H, BUN 72 H, Creatinine 9.20 H, Estimated Creat Clear 16, Estimated GFR 6 L*, Est GFR ( Amer) 7 L* D, Glucose 153 H, Calcium 6.8 L, Total Bilirubin 0.3, AST 93 H, ALT 37, Alkaline Phosphatase 99, Total Protein 5.6 L, Albumin 2.5 L, Globulin 3.1, Albumin/Globulin Ratio 0.8 L I & O for Last 24 hours: Intake & Output 07/14/21 07/15/21 07/16/21 07/17/21 11:59 11:59 11:59 11:59 Intake Total 6795.134 / 6795.134 9611.583 / 9870.583 4746.000 / 4746.000 6173.223 / 6173.223 Output Total 306 / 306 1100 / 1100 Balance 6489.134 / 6489.134 9606.583 / 9865.583 4733.000 / 4733.000 5073.223 / 5073.223 Weight 262 lb 263 lb 266 lb 12.149 oz Microbiology Reports for the Last 24 Hours: Microbiology 07/13/21 07:30 Sputum - Expectorated Sputum Gram Stain - Final 07/13/21 07:30 Sputum - Expectorated Sputum Sputum Culture - Final Normal Respiratory Adina Narrative: Ventilatory settings noted, high PEEP, blood pressure noted with pressors on board. Lungs have rhonchorous sounds, symmetric movement. Heart rate regular. Abdomen is soft, extremities are well-perfused. Souza catheter is not draining urine. Assessment and Plan (1) Acute respiratory distress syndrome (ARDS) due to COVID-19 virus Status: Acute Category: Medical Code(s): U07.1 - COVID-19; J80 - Acute respiratory distress syndrome (2) Acute respiratory failure with hypoxia Status: Acute Category: Medical Code(s): J96.01 - Acute respiratory failure with hypoxia (3) Pneumonia due to COVID-19 virus Status: Acute Category: Medical Code(s): U07.1 - COVID-19; J12.82 - Pneumonia due to coronavirus disease 2019 (4) CAD (coronary artery disease) Status: Chronic Qualifiers: Category: Medical Code(s): I25.10 - Atherosclerotic heart disease of [place] coronary artery without angina pectoris (5) Diabetes Status: Chronic Qualifiers: Category: Medical Code(s): E11.9 - Type 2 diabetes mellitus without complications (6) HLD (hyperlipidemia) Status: Chronic Qualifiers: Category: Medical Code(s): E78.5 - Hyperlipidemia, unspecified (7) HTN (hypertension) Status: Chronic Category: Medical Code(s): I10 - Essential (primary) hypertension (8) JAYLIN (obstructive sleep apnea) Status: Chronic Category: Medical Code(s): G47.33 - Obstructive sleep apnea (adult) (pediatric) (9) Hypothyroid Status: Chronic Qualifiers: Hypothyroidism type: acquired Qu
--- NOTE | 2021-07-17 09:16 | PC.NURSE ---
received call from Dr. Lizarraga with new orders: Kayexelate prn (pt needs to produce 3 BMs/day), 2g Ca Gluconate IV NOW, increase PEEP to 20, increase rate to 32, increase Bumex gtt to 1mL/hr. Orders read back and verified. Updated RT (Aron Mcclain). All med orders faxed to pharmacy.
[2021-07-17 09:43] LABS: Allen's Test Acceptable; Oxygen 80 %; PEEP 18; Source Left Radial; Tidal Volume 540; Vent Rate 30
[2021-07-17 09:44] LABS: ABG PCO2 59.6 mmhg (35.0-45.0); ABG PH 6.94 mmol/L (7.35-7.45)
--- NOTE | 2021-07-17 11:57 | HMH.ACPN2 ---
Internal Medicine - PN: Subj *Date: 07/17/21 *Time: 11:57 Exam Vital signs and Labs for Last 24 Hours: Temp Pulse Resp BP Pulse Ox 97.6 F 83 30 H 90/54 L 98 07/17/21 06:00 07/17/21 06:33 07/17/21 06:33 07/17/21 06:33 07/17/21 06:33 Laboratory Results - last 24 hr 07/16/21 15:50: POC Glucose 70 07/16/21 17:55: POC Glucose 106 07/16/21 20:00: POC Glucose 154 H 07/16/21 21:53: POC Glucose 131 H 07/16/21 23:52: POC Glucose 136 H 07/17/21 02:00: POC Glucose 136 H 07/17/21 03:56: POC Glucose 146 H 07/17/21 05:10: WBC 24.7 H*, RBC 3.36 L, Hgb 9.9 L, Hct 32.6 L, MCV 97.0 H, MCH 29.3, MCHC 30.2 L, RDW 13.2, Plt Count 378, MPV 7.7, Neut % (Auto) 93.6 H, Lymph % (Auto) 2.6 L, [place] % (Auto) 3.3, Eos % (Auto) 0.2, Baso % (Auto) 0.3, Neut # (Auto) 23.1 H, Lymph # (Auto) 0.7, [place] # (Auto) 0.8, Eos # (Auto) 0.0, Baso # (Auto) 0.1, Total Counted 100, Neutrophils % (Manual) 83 H, Band Neutrophils % 12.0 H, Lymphocytes % (Manual) 4 L, Monocytes % (Manual) 1 L, Platelet Estimate Normal, Hypochromasia 2+ 07/17/21 05:10: Sodium 131 L, Potassium 6.1 H*, Chloride 99, Carbon Dioxide 14 L, Anion Gap 24.1 H, BUN 72 H, Creatinine 9.20 H, Estimated Creat Clear 16, Estimated GFR 6 L*, Est GFR ( Amer) 7 L* D, Glucose 153 H, Calcium 6.8 L, Total Bilirubin 0.3, AST 93 H, ALT 37, Alkaline Phosphatase 99, Total Protein 5.6 L, Albumin 2.5 L, Globulin 3.1, Albumin/Globulin Ratio 0.8 L 07/17/21 06:00: Specimen Source Left radial, O2 % 80, ABG pH 6.94 L*, ABG pCO2 59.6 H, ABG pO2 100.9 H, ABG HCO3 12.4 L, ABG Total CO2 14.2 L, ABG O2 Saturation 95, ABG Base Excess -20.0 L, [place] Test Acceptable, Vent Rate 30, Tidal Volume 540, PEEP 18 I & O for Last 24 hours: Intake & Output 07/14/21 07/15/21 07/16/21 07/17/21 23:59 23:59 23:59 23:59 Intake Total 7373.758 / 7373.758 7455.083 / 7455.083 5725.970 / 5725.970 3456.039 / 3456.039 Output Total 1110 / 1110 Balance 7356.758 / 7356.758 7447.083 / 7447.083 4615.970 / 4615.970 3456.039 / 3456.039 Weight 118.841 kg 119.295 kg 121 kg Microbiology Reports for the Last 24 Hours: Microbiology 07/13/21 07:30 Sputum - Expectorated Sputum Gram Stain - Final 07/13/21 07:30 Sputum - Expectorated Sputum Sputum Culture - Final Normal Respiratory Adina Assessment and Plan (1) Acute respiratory distress syndrome (ARDS) due to COVID-19 virus Status: Acute Category: Medical Code(s): U07.1 - COVID-19; J80 - Acute respiratory distress syndrome (2) Acute respiratory failure with hypoxia Status: Acute Category: Medical Code(s): J96.01 - Acute respiratory failure with hypoxia (3) Pneumonia due to COVID-19 virus Status: Acute Category: Medical Code(s): U07.1 - COVID-19; J12.82 - Pneumonia due to coronavirus disease 2019 (4) CAD (coronary artery disease) Status: Chronic Qualifiers: Category: Medical Code(s): I25.10 - Atherosclerotic heart disease of [place] coronary artery without angina pectoris (5) Diabetes Status: Chronic Qualifiers: Category: Medical Code(s): E11.9 - Type 2 diabetes mellitus without complications (6) HLD (hyperlipidemia) Status: Chronic Qualifiers: Category: Medical Code(s): E78.5 - Hyperlipidemia, unspecified (7) HTN (hypertension) Status: Chronic Category: Medical Code(s): I10 - Essential (primary) hypertension (8) JAYLIN (obstructive sleep apnea) Status: Chronic Category: Medical Code(s): G47.33 - Obstructive sleep apnea (adult) (pediatric) (9) Hypothyroid Status: Chronic Qualifiers: Hypothyroidism type: acquired Qualified Code(s): E03.9 - Hypothyroidism, unspecified Category: Medical Code(s): E03.9 - Hypothyroidism, unspecified (10) Anxiety Status: Chronic Category: Medical Code(s): F41.9 - Anxiety disorder, unspecified (11) Class 2 obesity Status: Chronic Category: Medical Code(s): E66.9 - Obesity, unspecified The patient
[2021-07-17 13:17] LABS: Vancomycin,Trough 23.3 ug/mL (5.0-10.0)
[2021-07-17 14:03] LABS: POC Glucose,Bedside 92 (70-110)
[2021-07-17 16:26] LABS: POC Glucose,Bedside 112 (70-110)
--- NOTE | 2021-07-17 17:42 | PC.NURSE ---
SO (Shanice) @ [facility] and wishes to make pt a DNR. She also wishes for Dr. Herring to baptize pt if he is available. Dr. Herring has been notified. DNR order entered.
[2021-07-17 18:34] LABS: POC Glucose,Bedside 92 (70-110)
[2021-07-17 19:12] LABS: Vancomycin,Peak 38.1 ug/ml (11-39)
[2021-07-17 19:59] LABS: POC Glucose,Bedside 96 (70-110)
[2021-07-17 22:06] LABS: POC Glucose,Bedside 83 (70-110)
--- NOTE | 2021-07-17 23:16 | PC.WOUNDNOTE ---
Dr. Lizarraga called and was updated on pt. FSBS q 1 hour with amp of D50 to be given if <200.
--- NOTE | 2021-07-17 23:17 | PC.NURSE ---
Late entry: Spoke with Tiffany Dwyer with [facility] to report 3T and family thinking about withdrawing care on 07/18/21. Notified that pt is heavily sedated. Tiffany stated she was going to pass his information on to her coordinator. [id number] from [facility] called back and stated that [facility] was not going to follow his case and to call back with time of .
[2021-07-17 23:20] LABS: POC Glucose,Bedside 100 (70-110)
[2021-07-18] VITALS (18 sets, daily range): BP systolic 63–90; BP diastolic 35–73; PULSE 67–121; RESP 32–34; TEMP 36.1–37.3; O2SAT 96–98
--- NOTE | 2021-07-18 01:46 | PC.NURSE ---
Shanice Villanueva notified of lower BP 73/43 and lower trending BP. She stated she is on her way at this time. cable supervisor notified.
[2021-07-18 03:13] LABS: POC Glucose,Bedside 116 (70-110)
[2021-07-18 03:13] LABS: POC Glucose,Bedside 140 (70-110)
[2021-07-18 03:13] LABS: POC Glucose,Bedside 153 (70-110)
--- NOTE | 2021-07-18 04:40 | PC.NURSE ---
He is diaphoretic. Continues with q 1 hour fingersticks. /significant other at bedside. HOB elevated to 30 degrees. BP 70/42 at this time. No urine output this shift.
[2021-07-18 05:21] LABS: POC Glucose,Bedside 146 (70-110)
--- NOTE | 2021-07-18 05:23 | PC.NURSE ---
Pt unable to tolerate gtts stopped to draw labs.
[2021-07-18 07:35] LABS: ABG Base Excess -21.5 mmol/L (-2.4-2.3); ABG HCO3 10.7 mmhg (22.0-26.0); ABG Oxygen Saturation 97 % (90-100); ABG PO2 135.9 mmhg (80-100); ABG TCO2 12.3 mmhg (23-27)
[2021-07-18 07:48] LABS: Basophils # 0.1 K/mm3 (0-0.2); Basophils % 0.4 % (0.1-2.0); Eosinophils # 0.2 K/mm3 (0.0-0.4); Eosinophils % 0.8 % (0.1-12.0); Hematocrit 29.8 % (42.0-52.0); Hemoglobin 8.8 g/dL (14.1-18.0); Lymphocytes # 0.6 K/mm3 (0.7-4.5); Lymphocytes % 2.5 % (10-50); Mean Corpuscular HGB Conc 29.6 g/dL (31.8-35.4); Mean Corpuscular Hemoglobin 28.6 pg (27.0-31.2); Mean Corpuscular Volume 96.7 fl (80-94); Mean Platelet Volume 8.2 fl (7.4-10.4); Monocytes # 0.7 K/mm3 (0.1-1.0); Monocytes % 2.7 % (1.7-9.3); Neutrophils # 23.2 K/mm3 (1.8-7.8); Neutrophils % 93.6 % (37.0-80.0); Platelet Count 417 K/mm3 (142-424); Red Blood Count 3.08 M/mm3 (4.60-6.20); Red Cell Distribution Width 13.4 % (11.5-17.5); White Blood Count 24.8 K/mm3 (4.8-10.8)
[2021-07-18 07:49] LABS: Oxygen 80 %; PEEP 20; Tidal Volume 540; Vent Rate 32
[2021-07-18 07:50] LABS: Allen's Test acceptable; Source Left Radial
[2021-07-18 07:51] LABS: ABG PCO2 50.6 mmhg (35.0-45.0); ABG PH 6.94 mmol/L (7.35-7.45)
[2021-07-18 07:57] LABS: MANUAL DIFFERENTIAL MANUAL DIFFERENTIAL (MANUAL DIFF)
[2021-07-18 08:02] LABS: Alanine Aminotransferase 38 U/L (12-78); Albumin Level 2.3 g/dl (3.5-5.0); Albumin/Globulin Ratio 0.8 (1.1-1.8); Alkaline Phosphatase 86 U/L (38-126); Aspartate Amino Transferase 120 U/L (17-59); Bilirubin,Total 0.3 mg/dl (0.2-1.3); Blood Urea Nitrogen 77 mg/dl (9-20); Calcium 6.5 mg/dl (8.4-10.2); Carbon Dioxide 12 mmol/L (22.0-30.0); Chloride 99 mmol/L (98-107); Creatinine Clearance Estimated 13 mL/min (50-200); Estimated Glomerular Filt Rate 5 ml/min (>60); GFR (African American) 6 ML/MIN (>60); Glucose 139 mg/dl (74-100); Sodium 130 mmol/L (136-145); Total Protein,Serum 5.3 g/dl (6.3-8.2)
--- NOTE | 2021-07-18 08:11 | PC.NURSE ---
received call from lab (Anton[facility]) with critical results: K 6.0 and Cr 11.2. Name and verified. Dr. Herring and Dr. Lizarraga notified.
--- NOTE | 2021-07-18 08:59 | HMH.ACPN2 ---
Internal Medicine - PN: Subj *Date: 07/18/21 *Time: 08:59 Interval history: Overnight patient has continued to decompensate in spite of maximal pressor therapy, sedation and 100% ventilatory support. Yesterday I had a very long conversation with his , she elected to change his CODE STATUS to DNR, and we again had a discussion with his this morning. Exam Vital signs and Labs for Last 24 Hours: Temp Pulse Resp BP Pulse Ox 98.8 F 90 33 H 69/44 L 97 07/18/21 06:54 07/18/21 06:54 07/18/21 06:54 07/18/21 06:54 07/18/21 06:54 Laboratory Results - last 24 hr 07/17/21 06:00: Specimen Source Left radial, O2 % 80, ABG pH 6.94 L*, ABG pCO2 59.6 H, ABG pO2 100.9 H, ABG HCO3 12.4 L, ABG Total CO2 14.2 L, ABG O2 Saturation 95, ABG Base Excess -20.0 L, [place] Test Acceptable, Vent Rate 30, Tidal Volume 540, PEEP 18 07/17/21 12:09: POC Glucose 92 07/17/21 12:44: Vancomycin Trough 23.3 H 07/17/21 16:14: POC Glucose 112 H 07/17/21 18:00: Vancomycin Peak 38.1 07/17/21 18:20: POC Glucose 92 07/17/21 19:51: POC Glucose 96 07/17/21 22:00: POC Glucose 83 07/17/21 23:14: POC Glucose 100 07/18/21 01:16: POC Glucose 116 H 07/18/21 01:57: POC Glucose 153 H 07/18/21 03:04: POC Glucose 140 H 07/18/21 04:15: POC Glucose 146 H 07/18/21 06:00: Specimen Source Left radial, O2 % 80, ABG pH 6.94 L*, ABG pCO2 50.6 H, ABG pO2 135.9 H, ABG HCO3 10.7 L, ABG Total CO2 12.3 L, ABG O2 Saturation 97, ABG Base Excess -21.5 L, [place] Test acceptable, Vent Rate 32, Tidal Volume 540, PEEP 20 07/18/21 07:30: WBC 24.8 H*, RBC 3.08 L, Hgb 8.8 L, Hct 29.8 L, MCV 96.7 H, MCH 28.6, MCHC 29.6 L, RDW 13.4, Plt Count 417, MPV 8.2, Neut % (Auto) 93.6 H, Lymph % (Auto) 2.5 L, [place] % (Auto) 2.7, Eos % (Auto) 0.8, Baso % (Auto) 0.4, Neut # (Auto) 23.2 H, Lymph # (Auto) 0.6 L, [place] # (Auto) 0.7, Eos # (Auto) 0.2, Baso # (Auto) 0.1 07/18/21 07:30: Sodium 130 L, Potassium 6.0 H, Chloride 99, Carbon Dioxide 12 L, Anion Gap 25.0 H, BUN 77 H, Creatinine 11.20 H D, Estimated Creat Clear 13, Estimated GFR 5 L*, Est GFR ( Amer) 6 L*, Glucose 139 H, Calcium 6.5 L, Total Bilirubin 0.3, AST 120 H D, ALT 38, Alkaline Phosphatase 86, Total Protein 5.3 L, Albumin 2.3 L, Globulin 3.0, Albumin/Globulin Ratio 0.8 L I & O for Last 24 hours: Intake & Output 07/15/21 07/16/21 07/17/21 07/18/21 11:59 11:59 11:59 11:59 Intake Total 9611.583 / 9870.583 4746.000 / 4746.000 6387.092 / 6387.092 4876.000 / 4876.000 Output Total 1100 / 1100 0 / 0 Balance 9606.583 / 9865.583 4733.000 / 4733.000 5287.092 / 5287.092 4876.000 / 4876.000 Weight 263 lb 266 lb 12.149 oz Narrative: Patient intubated, sedated. Blood pressure in the mid 60s systolic on maximal pressors. Patient is clammy. Unresponsive and sedated and intubated. Lungs have rhonchi, poor respiratory mechanics. Abdomen soft. Peripheral tissues are edematous and swollen. Heart rate regular. Souza catheter is in place but has had no urine output for 5 days. Assessment and Plan (1) Acute respiratory distress syndrome (ARDS) due to COVID-19 virus Status: Acute Category: Medical Code(s): U07.1 - COVID-19; J80 - Acute respiratory distress syndrome (2) Acute respiratory failure with hypoxia Status: Acute Category: Medical Code(s): J96.01 - Acute respiratory failure with hypoxia (3) Pneumonia due to COVID-19 virus Status: Acute Category: Medical Code(s): U07.1 - COVID-19; J12.82 - Pneumonia due to coronavirus disease 2019 (4) CAD (coronary artery disease) Status: Chronic Qualifiers: Category: Medical Code(s): I25.10 - Atherosclerotic heart disease of [place] coronary artery without angina pectoris (5) Diabetes Status: Chronic Qualifiers: Category: Medical Code(s): E11.9 - Type 2 diabetes mellitus without complications (6) HLD (hyperlipidemia) Status: Chronic Qualifiers: Category: Medical Code(s): E78.5 - Hyperlipidemia, unspecified (7) HTN (hyperten
[2021-07-18 09:12] LABS: Lymphocytes % 7 % (10-50); Monocytes % 1 % (2-9); Neutrophils % 90 % (42-76); Platelet Estimate Normal; RBC Morphology Normal; Total Cells Counted 100
--- NOTE | 2021-07-18 13:49 | HMH.DEATH ---
Pronouncement Note - Date and Time of Date of : 07/18/21 Time of : 13:25 - Additional Data Confirmation of : no pulse, no respirations, no heart sounds, pupils fixed and dilated Attending physician: Gary Herring MD
--- NOTE | 2021-07-18 13:55 | PC.NURSE ---
1353 - Attempted to call Filippo at [phone], when they answered I told them I need to report a and she asked what phone # I called. I relayed the phone number to her. She then asked which ext. I dialed. I explained I didn't dial an extension that she answered after the phone rang. She then stated she would have to call me back. Return phone number given and awaiting call back.
--- NOTE | 2021-07-18 17:30 | PC.NURSE ---
[facility] Gabbi Mcneill [facility] around 1330. Pt ruled out for donation. Dr. Herring and Dr. Lizarraga updated @ 1330. Pt to be released to [facility] in [place], [place]
--- NOTE | 2021-07-19 08:59 | P.DN_ITS ---
Discharge Sum: Prov - Provider Primary care physician: Gary Herring MD Visit Care Team Role Provider Type [facility] MD Zia Other Providers Staff Physician Alex Moise MD Emergency Provider ER Physician Gary Herring MD Attending Provider Staff Physician Primary Care Provider Gary Foster MD Admit Provider Staff Physician Admitting clinician: Gary Herring Attending physician on admission: Gary Herring Consults: 07/13/21 07:35 Nutrition Consult [CONS] Routine Comment: Reason for Nutrition Consult: Tube Feeding, Initiate 07/13/21 10:46 Consult to Pulmonology [CONS] Routine Consulting Provider: Chris Lizarraga Reason For Consult: ventilator assistance 07/14/21 07:47 Nutrition Consult [CONS] Routine Comment: Reason for Nutrition Consult: Tube Feeding, Initiate Pronouncing clinician: aMrcelo Goldberg Discharge Sum: Summary - Date and Time Date of admission: 07/09/21 19:06 Date of : 07/18/21 Time of : 13:25 - Hospital Course prior to Hospital Course Information: Patient was admitted with fairly severe Covid pneumonitis. Significant chest x- ray findings and significant issues with hypoxia. Initially treated with Vapotherm but progressed rapidly to intubation. Patient required significant sedation and fairly maximal ventilator settings. Pulmonary assisted us with ventilator management. Patient was aggressively treated with antibiotics, IV steroids, remdesivir and antibiotic therapy as indicated with current COVID-19 emergency use authorization protocols. Patient somewhat stabilized from a respiratory standpoint over the next 48 hours but unfortunately developed severe and unremitting renal failure. Patient progressed with hyperkalemia and severe anuria and did not make urine for the last 5 days of his life. Hyperkalemia was controlled with aggressive insulin, glucose and calcium administration but creatinine samson inexorably to above 11. Transfer was unable to be accomplished because of complete lack of bed availability at tertiary care centers around the state secondary to current COVID-19 pandemic and hospital status. I talked with his several times about his terminal status and she elected to pursue DNR status. Patient had worsening hemodynamics on the morning and early afternoon of 07/18/2021 and began to be hypotensive. In accordance with his 's wishes cardiac resuscitation and CPR were not performed and patient from COVID-19 multiorgan failure on 1325 on 07/18/2021. - Additional Data Confirmation of as documented by pronouncing clinician: no pulse Family: at bedside Attending/PCP notified?: Yes Attending physician: Gary Herring MD Was code activated?: No Autopsy requested?: No eligibility examiner notified?: No Organ bank notified?: Yes Advance directives: Yes Hospice patient?: No
[2021-07-19 16:50] LABS: POC Glucose,Bedside 201 (70-110)
[2021-07-19 16:50] LABS: POC Glucose,Bedside 175 (70-110)
[2021-08-06 08:35] LABS: Reflex Lactic Add Lactic Reflex
== END 2021-07-18 19:21 | disposition expired | DRG 207 ==
LOC: ER 16:32 → 2ND 18:23 → ICU 21:54 → 2ND 07-11 15:14 → ICU 07-11 16:31
PROVIDERS: Internal Medicine Adolescent Medicine; Internal Medicine Pulmonary Disease; Admitting Provider Family Medicine; Emergency Provider Student in an Organized Health Care Education/Training Program; PCP Internal Medicine Adolescent Medicine; Visit Provider Internal Medicine Adolescent Medicine
DX: U07.1 COVID-19 (principal); J12.82 Pneumonia due to coronavirus disease 2019; J80 Acute respiratory distress syndrome; N17.9 Acute kidney failure, unspecified; Z68.41 Body mass index [BMI] 40.0-44.9, adult; E87.2 Acidosis; I25.10 Atherosclerotic heart disease of native coronary artery without angina pectoris; E11.9 Type 2 diabetes mellitus without complications; I10 Essential (primary) hypertension; E78.5 Hyperlipidemia, unspecified; I25.2 Old myocardial infarction; G47.33 Obstructive sleep apnea (adult) (pediatric); Z79.02 Long term (current) use of antithrombotics/antiplatelets; Z79.84 Long term (current) use of oral hypoglycemic drugs; Z79.899 Other long term (current) drug therapy; E03.9 Hypothyroidism, unspecified; F41.9 Anxiety disorder, unspecified; E66.9 Obesity, unspecified; I45.10 Unspecified right bundle-branch block; I44.0 Atrioventricular block, first degree; E87.5 Hyperkalemia; Z99.81 Dependence on supplemental oxygen
CPT/HCPCS: 31500; 94002; 36556; 36415; 71045; 71275; 74018; 80048; 80051; 80053; 80202; 81001; 82803; 82962; 83605; 83735; 84100; 84484; 85007; 85025; 87040; 87070; 87077; 87186; 87205; 93005; 93306; 93970; 94003; 94640; 94761; 96365; 96367; 96375; 99282; 99284; C1751; J1956; J2405; J2704; J3370; Q9967; U0003